=== PATIENT | female | born 1945 | race Caucasian/White ===

== ENCOUNTER 2019-06-23 09:09 | Emergency (ER) | payer MEDICARE, OTHER ==
[~2019-06-23] VITALS: Ht 152.4 cm; Wt 49.4 kg
--- NOTE | 2019-06-23 09:26 | NUR ---
Patient came to [facility] 195 c/c s/p fall lac to forehead nonm active bleeding patient is non verbal when recieved
[2019-06-23] MEDS ORDERED: AMIN30LI2 PO (09:31)
[2019-06-23] MEDS ORDERED: ACET-868 GT (09:31)
[2019-06-23] MEDS ORDERED: BENZ1TAB7 PO (09:31)
[2019-06-23] MEDS ORDERED: POLY17PO4 GT (09:31)
[2019-06-23] MEDS ORDERED: MAGN400O6 GT (09:31)
[2019-06-23] MEDS ORDERED: CLON0.5T PO (09:31)
[2019-06-23] MEDS ORDERED: NUT.237L30 PO (09:31)
[2019-06-23] MEDS ORDERED: LIDOCAINE 1%-EPI 1:100,000 50 ML VIAL IJ ONE (10:00)
[2019-06-23] MEDS ORDERED: LIDOCAINE 1%-EPI 1:100,000 20 ML VIAL ONE (10:04)
--- NOTE | 2019-06-23 10:39 | NUR ---
EMT @ bedside for wound irrigation
--- NOTE | 2019-06-23 11:32 | NUR ---
Patient non verbal eyes open follow tract sutured done forehead cleanse and place dressing
--- NOTE | 2019-06-23 11:48 | NUR ---
Called report to [facility] facility spoke to Ximena made aware patient needs to follow up PMD for wound check in 2 days and and removal of sutures in 5-7 days ,advice also room should be closer to nurses station
[2019-06-23 11:51] VITALS: BP 111/78
--- NOTE | 2019-06-23 11:51 | NUR ---
DC home intruction given to Ximena BERG from [facility]
--- NOTE | 2019-06-23 11:54 | NUR ---
JENNY WOLFE 1530 TRIP #[id number] Addendum: 06/23/19 at 1206 by ALESHIA *SILVIA ALVARADO
--- NOTE | 2019-06-23 11:58 | NUR ---
[facility] ETA 1500
--- NOTE | 2019-06-23 14:54 | NUR ---
[facility] UPDATED ETA [id number]
--- NOTE | 2019-06-23 15:29 | NUR ---
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
--- NOTE | 2019-06-23 16:21 | NUR ---
[facility] here to transfer patient to [facility]
--- NOTE | 2019-06-23 16:36 | NUR ---
Patient going back to [facility] report given to Ximena ,
== END 2019-06-23 16:34 ==
LOC: ER 09:11
DX: S01.81XA Laceration without foreign body of other part of head, initial encounter (principal); J44.9 Chronic obstructive pulmonary disease, unspecified; E11.9 Type 2 diabetes mellitus without complications; Z98.890 Other specified postprocedural states; Z86.73 Personal history of transient ischemic attack (TIA), and cerebral infarction without residual deficits; Z79.899 Other long term (current) drug therapy; W18.39XA Other fall on same level, initial encounter; Y93.89 Activity, other specified; Y92.89 Other specified places as the place of occurrence of the external cause; Y99.8 Other external cause status
CPT/HCPCS: 12013; 70450; 99285; A6403; J3490 ×2

== ENCOUNTER 2020-02-25 13:34 | Inpatient (IN) | payer MEDICARE, OTHER ==
[~2020-02-25] VITALS: Ht 165.1 cm; Wt 52.6 kg
[~2020-02-25 13:34] MED LIST: ACET-868 GT; AMIN30LI2 GT; BENZ1TAB7 PO; CLON0.5T PO; MAGN400O6 GT; NUT.237L30 PO; POLY17PO4 GT
[2020-02-25 14:16] LABS: BASOPHILS % (AUTO) 0.3 % (0.0-2.0); HEMATOCRIT 38 % (33-45); HEMOGLOBIN 12.6 g/dL (11.5-14.8); LYMPHOCYTES # (AUTO) 1.3 /CMM (0.8-4.8); LYMPHOCYTES % (AUTO) 12.3 % (20.0-44.0); MEAN CORPUSCULAR HGB CONC 33 g/dl (31.0-36.0); MEAN CORPUSCULAR VOLUME 94 fL (82-100); MONOCYTES # (AUTO) 0.5 /CMM (0.1-1.30); NEUTROPHILS # (AUTO) 8.8 /CMM (1.8-8.9); NEUTROPHILS % (AUTO) 82.4 % (43.0-81.0); PLATELET COUNT (AUTO) 273 /CMM (150-450); RED BLOOD CELL COUNT(AUTO) 4.09 MIL/uL (4.0-5.2); WHITE BLOOD COUNT (AUTO) 10.7 K/uL (4.3-11.0)
[2020-02-25 14:23] LABS: CALCIUM, SERUM 9.7 mg/dL (8.5-10.1); CARBON DIOXIDE 29 mmol/L (21-32); CHLORIDE 102 mmol/L (98-107); CREATININE 0.7 mg/dL (0.6-1.3); GLUCOSE 249 mg/dL (74-106); POTASSIUM 4.9 mmol/L (3.5-5.1); SODIUM SERUM 138 mmol/L (136-145); UREA NITROGEN, BLOOD 24 mg/dL (7-18)
--- NOTE | 2020-02-25 14:24 | NUR ---
STEPHANIE FROM [facility] TO ER BED 7. ALERT, AWAKE BUT CONFUSED. PT IS NOTED NON VERBAL. BROUGHT ON FOR A HIP XRAY CONFIRMED BY XRAY AT THE FACILITY. PER REPORT, PT WAS FOUND ON THE FLOOR AND UNABLE TO GET UP. UPON ASSESSMENT, PT IS NOTED WITH RIGHT LEG EXTERNAL ROTATION W/ POSITIVE SHORTENING. PEDAL PULSES ARE APPRECIATED AND BOTH EQUAL IN STRENGTH. PT APPEARS COMFORTABLE W/O NOTING ANY S/S OF PAIN. MD WAS AT THE BEDSIDE FOR EVAL. ORDERS RECEIVED, NOTED AND CARRIED OUT. IV LINE ESTABLISHED ON THE R HAND 20G. BLOOD DRAWN AND GIVEN TO DISPUTE COORDINATOR. COVID SWAB DONE AND SENT TO LAB. EMT WAS AT BEDSIDE WELL FOR EKG
--- NOTE | 2020-02-25 14:34 | NUR ---
AT BEDSIDE FOR EVAL.
--- NOTE | 2020-02-25 14:54 | NUR ---
BED 105
[2020-02-25] MEDS ORDERED: ATOR40TA GT (15:03)
[2020-02-25] MEDS ORDERED: CRAN3875 GT (15:03)
[2020-02-25] MEDS ORDERED: OMEG1CAP GT (15:03)
[2020-02-25] MEDS ORDERED: MULT-439 GT (15:03)
[2020-02-25] MEDS ORDERED: QUERCETIN GT (15:03)
[2020-02-25] MEDS ORDERED: ASCO500C16 GT (15:03)
[2020-02-25] MEDS ORDERED: ASPI-1169 GT (15:03)
[2020-02-25] MEDS ORDERED: BISA10SU11 RC (15:03)
[2020-02-25] MEDS ORDERED: POLY17PO4 PO (15:03)
[2020-02-25] MEDS ORDERED: CHOL100045 GT (15:03)
--- NOTE | 2020-02-25 15:08 | NUR ---
AYALA CATH INSERTED PER MD ORDERED. STRICT STERILE TECHNOQUE OBSERVED DURING PROCEDURE
--- NOTE | 2020-02-25 15:10 | NUR ---
CALLED YOLANDE JIMENEZ PAGED FOURDRINIER MACHINE TENDER DONG FOR CONSULT
--- NOTE | 2020-02-25 15:11 | NUR ---
Michael manning in [facility] - 02/25/20 at 1512 by PEDRITO GUS ONEILL LICENSED NUCLEAR OPERATOR DONG BARNHART
--- NOTE | 2020-02-25 15:13 | NUR ---
CALLED [facility], PAGED CANDICE COLEMAN FOR ADMISSION
--- NOTE | 2020-02-25 15:15 | NUR ---
REPORT GIVEN TO OTIS DUMONT FOR SEUN
[2020-02-25 16:16] LABS: BILIRUBIN,URINE Negative (NEGATIVE); BLOOD, URINE Trace-intact Ery/uL (NEGATIVE); COLOR,URINE Yellow (YELLOW); KETONES,URINE 15 (NEGATIVE); LEUKOCYTE ESTERASE ,URINE Trace (NEGATIVE); NITRITE, URINE Negative (NEGATIVE); PH,URINE 6.5 (5.0-8.0); PROTEIN,URINE Negative (NEGATIVE); UGLUCOSE 100 MG/DL mg/dL (NEGATIVE); UROBILINOGEN,URINE 0.2 EU/dL (0.2)
[2020-02-25] MEDS ORDERED: BISACODYL SUPP (10 MG) 10 MG/SUPP.RECT SUPP.RECT RC PRN (17:30)
--- NOTE | 2020-02-25 17:35 | NUR ---
CALLED [facility] AND FOLLOWED UP CERVICAL SPINE CT RESULT. SPOKE ELVA FORD
[2020-02-25] MEDS ORDERED: Z GUARD REMEDY 2 OZ OINT TP PRN (18:00)
[2020-02-25] MEDS ORDERED: MORPHINE SULFATE INJ 2 MG/ML DISP.SYRIN IV PRN (18:00)
[2020-02-25] MEDS ORDERED: ONDANSETRON HCL/PF 4 MG/2 ML VIAL IVP PRN (18:00)
[2020-02-25] MEDS ORDERED: ACETAMINOPHEN 650 MG/SUPP.RECT RC PRN (18:00)
--- NOTE | 2020-02-25 18:00 | NUR ---
PT TRANSPORTED TO UNIT ON GURNEY WITH 2 EMT AT BEDSIDE. NAD NOTED DURING TRANSPORT.
[2020-02-25 18:27] VITALS: BP 139/43
--- NOTE | 2020-02-25 18:30 | NUR ---
PATIENT SITUATED IN ROOM 105 NO SIGNS OF DISTRESS. AOX1 CONFUSED NON VERBAL. VITAL SIGNS FOLLOW BP 139/45 TEMP 97.4 PULSE 90 RR 18 O2 SAT 100 ON ROOM AIR. HAS R HAND #20. SAFETY MEASURES IMPLEMENTED. CALL LIGHT WITHIN REACH WILL ENDORSE TO STERILE PROCESSING TECH NURSE FOR SEUN.
--- NOTE | 2020-02-25 18:41 | NUR ---
spoke with brother eugenie would like to talk to surgeon prior to consenting,flower and radha ly made aware.
--- NOTE | 2020-02-25 19:32 | NUR ---
PATIENT IN BED NO SIGNS OF DISTRESS. ENDORSED TO HEAD INSPECTOR NURSE.
--- NOTE | 2020-02-25 19:50 | NUR ---
1950 RECEIVED PATIENT IN BED AWAKE BUT NONVERBAL. NO SIGNS OF DISTRESS NOTED. ON R/A WITH O2 SATURATION 98%. PATIENT RESISTING CARE TRYING TO PULL OUT HER IV ACCESS AND IV LINE. EXPLAINED THE NEED FOR IVF WITH NO HELP. PATIENT CONT TO TRY TO PULL IV LINE AND TRIED TO BITE STAFF. IV ACCESS ON RIGHT HAND INTACT AND PATENT. ISOLATION MASK APPLIED. PT ON DROPLET ISOLATION WITH ALL PRECAUTIONS STRICTLY FOLLOWED. CALL LIGHT PLACED WITHIN REACH.
[2020-02-25] MEDS: IV NS 0.9% 1,000 ML IV PRN (20:06)
[2020-02-25 20:12] LABS: APPEARANCE,URINE HAZY (CLEAR)
[2020-02-25 20:19] LABS: BACTERIA,URINE Rare /HPF (None Seen); SQUAMOUS EPITHELIAL CELL,UR Few /HPF (None Seen)
--- NOTE | 2020-02-25 21:15 | NUR ---
2114 PATIENT STILL TRYING TO REACH FOR IV LINE TO PULL IT OUT DESPITE REDIRECTION AND ATTENDING TO NEEDS. NOTIFIED DR TAYLOR WITH ORDER FOR BILATERAL RESTRAINTS. ORDER NOTED AND CARRIED OUT. EXPLAINED TO PATIENT THE NEED FOR RESTRAINTS FOR HER SAFETY AND PREVENTION OF PULLING OUT LIFE SUSTAINING LINES. WILL CONT. TO MONITOR.
--- NOTE | 2020-02-25 23:00 | NUR ---
2300 BEDBATH PROVIDED. PATIENT AWAKE AND VERBALLY RESPONSIVE. ANSWERED TO QUESTIONS APPROPRIATELY. ABLE TO ASSIST WITH TURNING. BILATERAL WRIST RESTRAINTS RELEASED PATIENT ABLE TO FOLLOW COMMANDS NOW AND NOT TRYING TO PULL IV LINES ANY LONGER. WITH C/O MILD PAIN ON RIGHT LEG WHEN ASKED. OFFERED PAIN MEDICATION BUT REFUSED STATING " I CANT HAVE ANYTHING IN MY STOMACH RIGHT NOW." OFFERED IV PAIN MEDICATION BUT CONT TO REFUSE. BILATERAL LOWER EXTREMITIES ELEVATED ON PILLOWS. ALL NEEDS ATTENDED. CALL LIGHT PLACED WITHIN REACH AND INSTRUCTED TO USE FOR ASSISTANCE.
[2020-02-25 23:30] VITALS: BP 141/58
[2020-02-26] VITALS (8 sets, daily range): BP systolic 109–140; BP diastolic 56–84
--- NOTE | 2020-02-26 01:30 | NUR ---
0130 AWAKE AND VERBALLY RESPONSIVE. O2 SATURATION MAINTAINED AT HIGH 90S ON R/A. CONT. TO DENY DIFFICULTY BREATHING. C/O MILD PAIN ON RIGHT HIP BUT REFUSED PAIN MEDICATION WHEN OFFERED. ABLE TO ASSIST WITH TURNING AND REPOSITIONING. KEPT CLEAN AND DRY AT ALL TIMES. CALL LIGHT PLACED WITHIN REACH.
--- NOTE | 2020-02-26 04:00 | NUR ---
0400 PATIENT SLEEPING WHEN CHECKED. NO SIGNS OF DISTRESS NOTED. REPOSITIONED FOR SKIN MANAGEMENT AND COMFORT. KEPT ON DROPLET ISOLATION FOR SUSPECTED COVID, ALL NECESSARY PRECAUTIONS STRICTLY OBSERVED. NEED ANTICIPATED.
--- NOTE | 2020-02-26 05:30 | NUR ---
0530 PATIENT RESISTING CARE AGAIN WHEN ATTEMPTED TO GIVE BED BATH. NOT TALKING AGAIN AND HITTING STAFF DURING CARE. REDIRECTED WITH NO HELP. NO EPISODE OF PULLING LINES. BED BATH PROVIDED. LINENS CHANGED. STRONGLY REFUSING VITAL SIGNS TO BE CHECKED. NO SIGNS OF DISTRESS. CONT TO TOLERATE R/A. DROPLET ISOLATION PENDING COVID RESULT WITH ALL PRECAUTIONS FOLLOWED.
[2020-02-26 06:21] LABS: BASOPHILS % (AUTO) 0.1 % (0.0-2.0); HEMATOCRIT 39 % (33-45); HEMOGLOBIN 12.6 g/dL (11.5-14.8); LYMPHOCYTES # (AUTO) 1.3 /CMM (0.8-4.8); MEAN CORPUSCULAR HGB CONC 32 g/dl (31.0-36.0); MEAN CORPUSCULAR VOLUME 93 fL (82-100); MONOCYTES # (AUTO) 0.6 /CMM (0.1-1.30); MONOCYTES % (AUTO) 5.4 % (2.0-12.0); NEUTROPHILS # (AUTO) 9.9 /CMM (1.8-8.9); NEUTROPHILS % (AUTO) 83.5 % (43.0-81.0); PLATELET COUNT (AUTO) 285 /CMM (150-450); RED BLOOD CELL COUNT(AUTO) 4.18 MIL/uL (4.0-5.2); WHITE BLOOD COUNT (AUTO) 11.8 K/uL (4.3-11.0)
[2020-02-26 06:37] LABS: CALCIUM, SERUM 9.3 mg/dL (8.5-10.1); CREATININE 0.7 mg/dL (0.6-1.3); MAGNESIUM 2.2 mg/dL (1.8-2.4); PHOSPHORUS 2.8 mg/dL (2.5-4.9); POTASSIUM 4.9 mmol/L (3.5-5.1)
[2020-02-26 06:42] LABS: THYROID STIMULATING HORMONE 2.177 uIU/mL (0.358-3.74)
--- NOTE | 2020-02-26 07:15 | NUR ---
RN OPENING NOTE Received patient asleep in bed appears calm and relaxed HOB elevated on room air tolerating well no signs of distress. AO x1 aphasic refused to be touched and checked. Pt has GT clamped. R Hand #20 running NS @ 75ml/hr tolerating well. Safety measures reinforced. Call light within reach. Siderails up x2. Will cont to monitor
--- NOTE | 2020-02-26 08:00 | NUR ---
NON-ADMIN: ASPIRIN. DUE TO SURGERY LATER.
[2020-02-26] MEDS: POLYETHYLENE GLYCOL 3350 17 GM POWD.PACK GT SCH ×2 (08:13→09:00)
[2020-02-26] MEDS: clonazePAM 0.5 MG TABLET GT SCH ×4 (08:13→17:04)
[2020-02-26] MEDS: ATORVASTATIN 40 MG TABLET GT SCH ×2 (08:13→09:00)
[2020-02-26] MEDS: PROSOURCE / PROSTAT (PYXIS) 30 ML UDC GT SCH ×3 (08:14→17:00)
[2020-02-26] MEDS: ASPIRIN 81 MG TAB.CHEW GT SCH (08:14)
[2020-02-26] MEDS: IV NS 0.9% 1,000 ML IV PRN ×2 (09:26→22:57)
--- NOTE | 2020-02-26 10:00 | NUR ---
PATIENT REFUSED MEDICATION OFFERED 3X. EXPLAINED RISK AND BENEFITS. MD AWARE WITH NNO.
[2020-02-26] MEDS ORDERED: DEXTROSE 50%-WATER 50 ML DISP.SYRIN IV PRN (15:30)
[2020-02-26] MEDS: BLOOD SUGAR DIAGNOSTIC 1 EACH STRIP IN SCH ×3 (15:30→22:33)
[2020-02-26] MEDS: SOD FERRIC GLUC 125 MG in IV NS 0.9% 100 ML IV SCH (16:07)
[2020-02-26] MEDS: INSULIN REGULAR, HUMAN 100 UNIT/ML 3 ML VIAL SQ PRN ×2 (17:35→22:33)
[2020-02-26] MEDS ORDERED: BUPIVACAINE 0.5 % PF 150 MG/30 ML VIAL ONE (17:51)
[2020-02-26] MEDS ORDERED: MIDAZOLAM HCL 2 MG/2ML VIAL ONE (18:03)
[2020-02-26] MEDS ORDERED: FENTANYL PF 250MCG/5ML AMPUL ONE (18:03)
[2020-02-26] MEDS ORDERED: ROCURONIUM BROMIDE 50 MG/5 ML ONE (18:04)
[2020-02-26] MEDS ORDERED: FAMOTIDINE/PF INJ 20 MG/2 ML VIAL IV ONE (18:04)
[2020-02-26] MEDS ORDERED: HYDROCODONE/APAP 5/325MG TABLET PO PRN (20:30)
--- NOTE | 2020-02-26 21:20 | NUR ---
MS/RN OPENING NOTES: RECEIVED THE PATIENT A/OX4. ABLE TO STATE NEEDS AND VERBALLY RESPONSIVE. S/P RIGHT HIP HEMIARTHROPLASTY. SURGICAL SITE DRESSING IS C.D.I. NO SOB NOTED. ON 2L OXYGEN VIA NC SATURATING AT 99-100%. NO S/S OF DISTRESS NOTED. NO COMPLAINS OF PAIN. PER PATIENT "I FEEL GOOD." POST OP ORDERS PLACED. ON REGULAR DIET TOLERATED, CHECKED FOR GAG REFLEX. NO S/S OF ASPIRATION WHEN GIVEN APPLE SAUCE. FC NOTED DRAINING CLEAR YELLOW URINE OUTPUT. IV SITE ON THE RIGHT HAND #20G, INTACT AND PATENT. WILL MONITOR VS Q15MIN. X4 AND Q30MIN. X2, AND Q1HOUR PER PROTOCOL. PT IS ORIENTED TO UNIT AND STAFF. SAFETY MEASURES INITIATED. BED , IN LOW, LOCKED POSITION WITH SR UP X2. CALL LIGHT WITHIN REACH. WILL CONTINUE TO MONITOR ACCORDINGLY.
--- NOTE | 2020-02-26 22:00 | NUR ---
TELE/RN NOTES: ACCUCHECK FOR HS 2200 IS 80. NO COVERAGE GIVEN PER SLIDING SCALE. NO S/S OF HYPOGLYCEMIA/ HYPERGLYCEMIA. PATIENT GIVEN APPLE SAUCE. ABLE TO TOLERATE WITH NO SIGNS OF ASPIRATION. Addendum: 02/27/20 at 0600 by EVAN BERUMEN RN MS/RN NOTES:
[2020-02-27] VITALS (8 sets, daily range): BP systolic 110–126; BP diastolic 57–76
--- NOTE | 2020-02-27 | NUR ---
MS/RN NOTES: PT VS WNL AND STABLE. PT DENIES PAIN AT THIS TIME. WILL MONITOR CONTINUOUSLY.
[2020-02-27] MEDS ORDERED: CEFAZOLIN IV SCH (04:00)
[2020-02-27] MEDS ORDERED: D5W IV SCH (04:00)
--- NOTE | 2020-02-27 05:11 | NUR ---
MS/RN NOTES: NO STOCKED ANCEF 2GM ON THE FLOOR. NO STOCK IN [place], MS 2. CHECKING WITH ICU.
--- NOTE | 2020-02-27 05:27 | NUR ---
MS/RN NOTES: NO ANCEF 2GM AVAILABLE ALL UNITS. CHECKING WITH LEAD NITRATE PROCESSOR BRO RIGHT NOW. AWAITING FOR RESPONSE.
--- NOTE | 2020-02-27 05:28 | NUR ---
MS/RN NOTES: NEUROSURGERY RESEARCH DIRECTOR CALLED AND THERE IS NO AVAILABLE
--- NOTE | 2020-02-27 05:43 | NUR ---
MS/RN NOTES: FOUND AN UNUSED ANCEF 2GM. CHARGE NURSE AWARE. COLOR BUFFER AWARE. WILL INFUSE NOW.
--- NOTE | 2020-02-27 05:50 | NUR ---
MS/RN NOTES: ANCEF 2GMS INFUSING AT 50ML/SHR ORDERED FOR POST OP.
--- NOTE | 2020-02-27 06:00 | NUR ---
MS/RN NOTES: ACCUCHECK FOR HS 2200 IS 80. NO COVERAGE GIVEN PER SLIDING SCALE. NO S/S OF HYPOGLYCEMIA/ HYPERGLYCEMIA. PATIENT GIVEN APPLE SAUCE. ABLE TO TOLERATE WITH NO SIGNS OF ASPIRATION. Addendum: 02/27/20 at 0601 by EVAN BERUMEN RN INCORRECT TIME DOCUMENTATION. PLEASE DISREGARD.
[2020-02-27] MEDS: BLOOD SUGAR DIAGNOSTIC 1 EACH STRIP IN SCH ×4 (06:52→22:34)
[2020-02-27] MEDS: INSULIN REGULAR, HUMAN 100 UNIT/ML 3 ML VIAL SQ PRN ×3 (06:56→18:00)
--- NOTE | 2020-02-27 06:57 | NUR ---
TELE/RN NOTES: ACCUCHECK FOR AC 0730 IS 146. REFUSED REG INSULIN COVERAGE. NO S/S OF HYPOGLYCEMIA/ HYPERGLYCEMIA.
--- NOTE | 2020-02-27 06:58 | NUR ---
MS/RN NOTES: ACCUCHECK FOR AC 0730 IS 146. REFUSED REG INSULIN COVERAGE. NO S/S OF HYPOGLYCEMIA/ HYPERGLYCEMIA.
--- NOTE | 2020-02-27 06:58 | NUR ---
MS/RN CLOSING NOTES: PATIENT REMAINS A/OX4. ABLE TO STATE NEEDS AND VERBALLY RESPONSIVE. S/P RIGHT HIP HEMIARTHROPLASTY. SURGICAL SITE DRESSING STILL C.D.I. NO SOB NOTED. ON 2L OXYGEN VIA NC SATURATING AT 99-100%. NO S/S OF DISTRESS NOTED. NO COMPLAINS OF PAIN. VS STABLE ALL NIGHT. FC NOTED DRAINING CLEAR YELLOW URINE OUTPUT. IV SITE ON THE RIGHT HAND #20G, INTACT AND PATENT WITH NS RUNNING AT 75MLS/HR. SAFETY MEASURES IN PLACE. BED , IN LOW, LOCKED POSITION WITH SR UP X2. CALL LIGHT WITHIN REACH. WILL ENDORSE TO DAY SHIFT FOR SEUN.
[2020-02-27] MEDS: ATORVASTATIN 40 MG TABLET GT SCH (08:03)
[2020-02-27] MEDS: PROSOURCE / PROSTAT (PYXIS) 30 ML UDC GT SCH ×2 (08:03→16:36)
[2020-02-27] MEDS: POLYETHYLENE GLYCOL 3350 17 GM POWD.PACK GT SCH (08:03)
[2020-02-27] MEDS: clonazePAM 0.5 MG TABLET GT SCH ×2 (08:03→16:36)
[2020-02-27] MEDS: ASPIRIN 81 MG TAB.CHEW GT SCH (08:04)
--- NOTE | 2020-02-27 09:13 | NUR ---
MS RN OPENING NOTES RECEIVED PATIENT A/OX4. POD# 1 RIGHT HIP HEMIARTHROPLASTY. SURGICAL SITE DRESSING IS CLEAN, DRY AND INTACT. ICE PACK IN PLACE. ON 2L O2 VIA NC SATURATING AT 94%. NO SOB, NO RESPIRATORY DISTRESS NOTED. NO COMPLAINS OF PAIN. ON REGULAR DIET TOLERATED. FC DRAINING CLEAR YELLOW URINE. IV SITE ON RIGHT HAND #20G, INTACT AND PATENT. SAFETY MEASURES OBSERVED. CALL LIGHT WITHIN REACH. BED LOCKED AND AT LOWEST POSITION WITH SIDE RAILS UP X2. PATIENT IS COMFORTABLE. WILL CONTINUE TO MONITOR.
[2020-02-27 10:45] LABS: BASOPHILS % (AUTO) 0.3 % (0.0-2.0); HEMATOCRIT 31 % (33-45); HEMOGLOBIN 10.1 g/dL (11.5-14.8); LYMPHOCYTES # (AUTO) 0.8 /CMM (0.8-4.8); LYMPHOCYTES % (AUTO) 11.1 % (20.0-44.0); MEAN CORPUSCULAR HGB CONC 33 g/dl (31.0-36.0); MEAN CORPUSCULAR VOLUME 93 fL (82-100); MONOCYTES # (AUTO) 0.6 /CMM (0.1-1.30); MONOCYTES % (AUTO) 8.5 % (2.0-12.0); NEUTROPHILS # (AUTO) 5.5 /CMM (1.8-8.9); NEUTROPHILS % (AUTO) 80.1 % (43.0-81.0); PLATELET COUNT (AUTO) 241 /CMM (150-450); RED BLOOD CELL COUNT(AUTO) 3.29 MIL/uL (4.0-5.2); WHITE BLOOD COUNT (AUTO) 6.8 K/uL (4.3-11.0)
[2020-02-27 10:54] LABS: ALBUMIN 2.3 g/dL (3.4-5.0); BILIRUBIN,TOTAL 0.4 mg/dL (0.2-1.0); CALCIUM, SERUM 7.9 mg/dL (8.5-10.1); CREATININE 0.8 mg/dL (0.6-1.3); MAGNESIUM 1.8 mg/dL (1.8-2.4); PHOSPHORUS 2.2 mg/dL (2.5-4.9); TOTAL PROTEIN, SERUM 5.8 g/dL (6.4-8.2)
[2020-02-27] MEDS: IV NS 0.9% 1,000 ML IV PRN (11:41)
[2020-02-27] MEDS ORDERED: CEFAZOLIN 2 GM in IV D5W 100 ML IV ONE (12:00)
[2020-02-27] MEDS: SOD FERRIC GLUC 125 MG in IV NS 0.9% 100 ML IV SCH (13:56)
[2020-02-27] MEDS ORDERED: NEUTRA PHOS 1 POWD.PACKET NG ONE (16:30)
--- NOTE | 2020-02-27 18:59 | NUR ---
MS RN CLOSING NOTES PATIENT REMAINS IN BED. A/OX2. CHANGE OF DRESSING TOMORROW. SURGICAL SITE DRESSING CLEAN, DRY AND INTACT. NO SOB NOTED, NOT IN RESPIRATORY DISTRESS. ON ROOM AIR SATURATING AT 96%. NO COMPLAINS OF PAIN. FC REMOVED. IV SITE ON THE LEFT FOREARM #20G, INTACT AND PATENT WITH NS RUNNING AT 75MLS/HR. VS STABLE. SAFETY MEASURES IN PLACE. CALL LIGHT WITHIN REACH. BED LOCKED AND AT LOWEST POSITION. WILL ENDORSE TO ONCOMING SHIFT FOR SEUN.
--- NOTE | 2020-02-27 19:45 | NUR ---
MSRN AWAKE, LIMITED VERBAL. ABDUCTION PILLOW IN PLACE. PRESENT IVF INFUSING WELL. RESISTIVE TO CARE AT THIS TIME. TO CONTNUE
[2020-02-27] MEDS ORDERED: ENOXAPARIN SODIUM 40 MG/0.4 ML DISP.SYRIN SQ SCH (21:00)
--- NOTE | 2020-02-27 22:44 | NUR ---
MSRN BS 154, NO COVERAGE FOR NOW, SKIPPED MEALS TODAY. OFFERED LATE DINNER DECLINED.
[2020-02-28] MEDS: IV NS 0.9% 1,000 ML IV PRN (01:56)
--- NOTE | 2020-02-28 02:55 | NUR ---
MSRN CHECKED FOR URINE OUTPUT,FINALLY VOIDED LARGE AMOUNT. PARTIALLY BATHED, RESISTIVE TO CARE. REPOSITIONED, KEPT DRY CLEAN AND COMFORTABLE. OFFERED PAIN MED, REFUSED
--- NOTE | 2020-02-28 06:59 | NUR ---
MSRN BS 126. ALL NEEDS MADE.
[2020-02-28] MEDS: BLOOD SUGAR DIAGNOSTIC 1 EACH STRIP IN SCH ×3 (07:30→17:42)
[2020-02-28 07:37] LABS: BASOPHILS % (AUTO) 0.2 % (0.0-2.0); HEMATOCRIT 28 % (33-45); HEMOGLOBIN 9.1 g/dL (11.5-14.8); LYMPHOCYTES # (AUTO) 1.5 /CMM (0.8-4.8); MEAN CORPUSCULAR HGB CONC 33 g/dl (31.0-36.0); MEAN CORPUSCULAR VOLUME 93 fL (82-100); MONOCYTES # (AUTO) 0.9 /CMM (0.1-1.30); MONOCYTES % (AUTO) 12.6 % (2.0-12.0); NEUTROPHILS # (AUTO) 5.1 /CMM (1.8-8.9); NEUTROPHILS % (AUTO) 67.2 % (43.0-81.0); PLATELET COUNT (AUTO) 241 /CMM (150-450); RED BLOOD CELL COUNT(AUTO) 2.98 MIL/uL (4.0-5.2); WHITE BLOOD COUNT (AUTO) 7.5 K/uL (4.3-11.0)
[2020-02-28 07:50] LABS: ALBUMIN 2.1 g/dL (3.4-5.0); BILIRUBIN,TOTAL 0.5 mg/dL (0.2-1.0); CREATININE 0.6 mg/dL (0.6-1.3); MAGNESIUM 1.9 mg/dL (1.8-2.4); PHOSPHORUS 2.4 mg/dL (2.5-4.9); POTASSIUM 3.9 mmol/L (3.5-5.1); TOTAL PROTEIN, SERUM 5.8 g/dL (6.4-8.2)
--- NOTE | 2020-02-28 07:50 | NUR ---
MS RN NOTES PATIENT IN BED RESTING. AWAKE, NONE VERBAL. SAFETY MEASURES IN PLACE WILL CONTINUE TO MONITOR.
[2020-02-28] MEDS: ATORVASTATIN 40 MG TABLET GT SCH ×2 (08:18→08:25)
[2020-02-28] MEDS: ASPIRIN 81 MG TAB.CHEW GT SCH ×2 (08:18→08:25)
[2020-02-28] MEDS: clonazePAM 0.5 MG TABLET GT SCH ×3 (08:18→16:16)
[2020-02-28] MEDS: POLYETHYLENE GLYCOL 3350 17 GM POWD.PACK GT SCH ×2 (08:18→08:26)
[2020-02-28] MEDS: PROSOURCE / PROSTAT (PYXIS) 30 ML UDC GT SCH ×2 (08:26→16:16)
[2020-02-28 09:34] VITALS: BP 144/80
[2020-02-28] MEDS ORDERED: HYDROCODONE/APAP 5/325MG TABLET GT PRN (11:28)
[2020-02-28] MEDS ORDERED: NEUTRA PHOS 1 POWD.PACKET GT SCH (11:30)
[2020-02-28] MEDS: INSULIN REGULAR, HUMAN 100 UNIT/ML 3 ML VIAL SQ PRN ×2 (11:34→17:42)
--- NOTE | 2020-02-28 11:48 | NUR ---
MS RN NOTES PATIENT REFUSING ALL PO MEDICATIONS. REFUSING FOR MEDICATIONS TO BE GIVEN THREW G-TUBE ALS. DESPITE EXPLANATION OF BENEFITS. STATES SHE DOES NOT FEEL WELL WHEN TAKING MEDICATION.
[2020-02-28] MEDS ORDERED: Sodium Phosphate 15 MMOL in IV NS 0.9% 245 ML IV SCH (12:00)
[2020-02-28] MEDS ORDERED: PANT40TA2 PO (14:03)
[2020-02-28] MEDS ORDERED: ENOX40DI SQ (14:03)
[2020-02-28] MEDS: SOD FERRIC GLUC 125 MG in IV NS 0.9% 100 ML IV SCH (15:23)
--- NOTE | 2020-02-28 15:24 | NUR ---
MS RN NOTES SODIUM PHOS HELD TO RUN FERRLICIT. IV WILL CONTINUE SODIUM PHOS AFTER FERLICIT FINISHES.
[2020-02-28 16:11] VITALS: BP 169/72
--- NOTE | 2020-02-28 18:40 | NUR ---
MS RN NOTES PATIENT REFUSED DISCHARGE PICTURES.
--- NOTE | 2020-02-28 18:40 | NUR ---
MS RN NOTES DISCHARGE REPORT GIVEN TO ELVER BERG AT [facility]. DISCHARGE INSTRUCTIONS PROVIDED TO PATIENT AND RN AT SNF. PATIENT NONE COMPLIANT WITH MEDICATIONS. SHE REFUSES MEDICATION. MD AWARE OF ALL ABNORMAL LABS AND TESTS. PATIENT COMPLETED SODIUM PHOS IV. PATIENT WITH NO BELONGINGS. PATIENT WAITING FOR TRANSPORTATION. WILL CONTINUE TO MONITOR.
--- NOTE | 2020-02-28 19:10 | NUR ---
MS RN OPENING NOTES: RECEIVED PATIENT IN BED, AWAKE, A/O X2-3. NO S/S DISTRESS NOTED. CALL LIGHT WITHIN REACH. BED ALARM ON. BED IN LOWEST AND LOCKED POSITION. HOB ELEVATED AT 30 DEGREES. WITH RIGHT HIP DRESSIN CLEAN DRY AND INTACT. WITH ABDUCTION PILLOW BETWEEN THE THIGHS. PER REPORTS FROM THE DAYSHIFT, RN ALREADY MADE A REPORT TO THE FACILITY AND TALKED TO ELVER. AND D/C PACKET ALREADY PREPARED AND PRINTED. WAITING FOR THE AMBULANCE PICK-UP.
--- NOTE | 2020-02-28 19:22 | NUR ---
MS RN NOTES PATIENT IN BED RESTING NO SOB OR ACUTE DISTRESS NOTED. PATIENT WAITING FOR DISCHARGE. PERIPHERAL IV REMOVED. ENDORSED CARE TO PM SHIFT.
--- NOTE | 2020-02-28 21:13 | NUR ---
patient is being picked up by the ambulance at this moment, reports given.IV ALREADY REMOVED BY THE PREVIOUS SHIFT RN, NO BLEEDING NOTED.
== END 2020-02-28 21:15 | DRG 469 ==
LOC: ER 13:42 → MEDSG1 15:18 → MEDSG2 02-26 14:15 → MED 02-26 21:25
PROVIDERS: ADMIT Nurse Practitioner Acute Care; ATTEND Nurse Practitioner Acute Care
PROC: 0SRR0JZ Replacement of Right Hip Joint, Femoral Surface with Synthetic Substitute, Open Approach (ICD-10-PCS; principal; 2020-02-26)
DX: S72.011A Unspecified intracapsular fracture of right femur, initial encounter for closed fracture (principal); R53.2 Functional quadriplegia; G93.40 Encephalopathy, unspecified; N17.9 Acute kidney failure, unspecified; Z86.73 Personal history of transient ischemic attack (TIA), and cerebral infarction without residual deficits; J44.9 Chronic obstructive pulmonary disease, unspecified; E86.0 Dehydration; F20.9 Schizophrenia, unspecified; F03.90 Unspecified dementia, unspecified severity, without behavioral disturbance, psychotic disturbance, mood disturbance, and anxiety; E78.5 Hyperlipidemia, unspecified; E11.65 Type 2 diabetes mellitus with hyperglycemia; D50.9 Iron deficiency anemia, unspecified; F32.9 Major depressive disorder, single episode, unspecified; R47.02 Dysphasia; Z79.82 Long term (current) use of aspirin; Z93.1 Gastrostomy status; F29 Unspecified psychosis not due to a substance or known physiological condition; X58.XXXA Exposure to other specified factors, initial encounter; Y93.9 Activity, unspecified; Y92.89 Other specified places as the place of occurrence of the external cause
CPT/HCPCS: 36415; 70450-TC; 71045-TC; 72125-TC; 72170-TC; 73502; 80048-TC; 80053-TC; 80061-TC; 81000-TC; 82962-TC; 83540-TC; 83735-TC; 84100-TC; 84443-TC; 84484-TC; 85025-TC; 85730-TC; 86850-TC; 87081-TC; 87086-TC; 93307-TC; 94799-TC; 97110-TC; 97530-TC; A4217; A6209; A9563; C1776; G0378; J0690; J1650; J1815; J2250; J2405; J2704; J2765; J2916; J3010; J3490; J7030; J7050; J7060; U0003-CS

== ENCOUNTER 2020-06-03 09:13 | Inpatient (IN) | payer MEDICARE, OTHER ==
[~2020-06-03] VITALS: Ht 165.1 cm; Wt 52.6 kg
[2020-06-03] VITALS (15 sets, daily range): BP systolic 88–137; BP diastolic 28–98
[~2020-06-03 09:13] MED LIST changes: -ACET-868 GT; +ASCO500C17 GT; +ASPI-1169 GT; +ATOR40TA GT; -BENZ1TAB7 PO; +BISA10SU11 RC; +CHOL100045 GT; +CRAN3875 GT; +ENOX40DI SQ; +MULT-439 GT; -NUT.237L30 PO; +OMEG1CAP GT; +PANT40TA2 PO; -POLY17PO4 GT; +POLY17PO4 PO; +QUERCETIN GT
--- NOTE | 2020-06-03 09:47 | NUR ---
KITMAN AT BEDSIDE
[2020-06-03 10:00] LABS: ABG BASE EXCESS -5.4 mmol/L; ABG OXYGEN SATURATION 96.5 % (92.0-98.5); ABG PCO2 35.8 mmHg (35.0-45.0); AaDO2 587.2 mmHg; COHb 0.3 % (0.5-1.5); MetHb 0.5 % (0.0-1.5); O2Hb 95.7 % (94.0-97.0); SITE, ABG Right Radial; VENT MODE, BG 100% NRB
[2020-06-03] MEDS ORDERED: NA P133E RC (10:03)
[2020-06-03] MEDS ORDERED: NUT.237L30 GT (10:03)
[2020-06-03] MEDS ORDERED: NUTR1PAC14 GT (10:03)
[2020-06-03] MEDS ORDERED: INSU100V7 SQ (10:03)
[2020-06-03] MEDS ORDERED: ACET325T53 GT ×2 (10:03)
[2020-06-03] MEDS ORDERED: DOCU-141 GT (10:03)
[2020-06-03] MEDS ORDERED: PANT40TA2 GT (10:03)
[2020-06-03 10:27] LABS: BASOPHILS % (AUTO) 0.2 % (0.0-2.0); EOSINOPHILS % (AUTO) 0.1 % (0.0-6.0); HEMATOCRIT 55 % (33-45); HEMOGLOBIN 16.8 g/dL (11.5-14.8); LYMPHOCYTES # (AUTO) 0.7 /CMM (0.8-4.8); MEAN CORPUSCULAR HGB CONC 30 g/dl (31.0-36.0); MEAN CORPUSCULAR VOLUME 99 fL (82-100); MONOCYTES # (AUTO) 0.6 /CMM (0.1-1.30); MONOCYTES % (AUTO) 4.3 % (2.0-12.0); NEUTROPHILS # (AUTO) 12.3 /CMM (1.8-8.9); NEUTROPHILS % (AUTO) 90.4 % (43.0-81.0); PLATELET COUNT (AUTO) 168 /CMM (150-450); RED BLOOD CELL COUNT(AUTO) 5.62 MIL/uL (4.0-5.2); WHITE BLOOD COUNT (AUTO) 13.6 K/uL (4.3-11.0)
[2020-06-03] MEDS ORDERED: IV NS 0.9% 500 ML BAG IV ONE ×2 (10:30→17:00)
[2020-06-03 10:34] LABS: SERUM AMMONIA 33 umol/L (11-32)
--- NOTE | 2020-06-03 10:42 | NUR ---
URINE SAMPLE COLLECTED VIA STRAIGHT CATHETER, SAMPLE SENT TO LAB.
--- NOTE | 2020-06-03 10:49 | NUR ---
COVID 19 PCR SWAB DONE AND SENT TO LAB.
[2020-06-03 10:53] LABS: ALANINE AMINOTRANSFERASE 535 U/L (12-78); ALBUMIN 2.6 g/dL (3.4-5.0); ALKALINE PHOSPHATASE 995 U/L (46-116); ASPARTATE AMINOTRANSFERASE 240 U/L (15-37); B-TYPE NATRIURETIC PEPTIDE 2874 PG/ML (0-125); BILIRUBIN,TOTAL 0.5 mg/dL (0.2-1.0); CALCIUM, SERUM 9.3 mg/dL (8.5-10.1); CARBON DIOXIDE 23 mmol/L (21-32); CHLORIDE 124 mmol/L (98-107); CREATININE 4.2 mg/dL (0.6-1.3); POTASSIUM 4.6 mmol/L (3.5-5.1); TOTAL PROTEIN, SERUM 6.9 g/dL (6.4-8.2)
[2020-06-03] MEDS ORDERED: ACETAMINOPHEN 650 MG/SUPP.RECT RC ONE ×2 (11:00→11:23)
[2020-06-03 11:01] LABS: GLUCOSE 688 mg/dL (74-106); SODIUM SERUM 165 mmol/L (136-145); UREA NITROGEN, BLOOD 241 mg/dL (7-18)
[2020-06-03] MEDS ORDERED: INSULIN REGULAR, HUMAN 100 UNIT/ML 10 ML VIAL ONE (11:23)
[2020-06-03] MEDS ORDERED: IV NS 0.9% 1,000 ML BAG IV ONE (11:30)
[2020-06-03] MEDS ORDERED: INSULIN REGULAR, HUMAN 100 UNIT/ML 10 ML VIAL IV ONE (11:30)
[2020-06-03] MEDS: NOREPINEPHRINE 8 MG in IV NS 0.9% 242 ML IV PRN (11:32)
[2020-06-03] MEDS ORDERED: IV NS 0.9% 1,000 ML IV ONE (12:00)
[2020-06-03] MEDS ORDERED: MISCELLANEOUS MED 1 EA EA XX ONE (12:30)
[2020-06-03] MEDS ORDERED: INSULIN REGULAR, HUMAN 100 UNIT/ML 3 ML VIAL IV ONE (12:30)
[2020-06-03] MEDS ORDERED: Z GUARD REMEDY 2 OZ OINT TP PRN (12:30)
[2020-06-03] MEDS ORDERED: ONDANSETRON HCL/PF 4 MG/2 ML VIAL IVP PRN (12:30)
[2020-06-03] MEDS ORDERED: HYDROCODONE/APAP 5/325MG TABLET PO PRN (12:30)
[2020-06-03] MEDS ORDERED: ZOLPIDEM TARTRATE 5 MG TABLET PO PRN (12:30)
--- NOTE | 2020-06-03 12:34 | NUR ---
RT AT BEDSIDE. PLACED PATIENT ON HI-FLOW O2.
--- NOTE | 2020-06-03 12:36 | NUR ---
HI-FLOW O2 SETTINGS: 40LPM AT 100% O2
--- NOTE | 2020-06-03 12:51 | NUR ---
PATIENT'S O2 SATURATION AT 75-81% WITH USE OF HI-FLOW OXYGEN. MADE MD AWARE.
[2020-06-03] MEDS ORDERED: PROPOFOL 100 ML ONE (12:52)
[2020-06-03] MEDS ORDERED: PROPOFOL 20 ML IV ONE (12:52)
--- NOTE | 2020-06-03 12:54 | NUR ---
MD, RN AND RT AT BEDSIDE FOR INTUBATION.
--- NOTE | 2020-06-03 13:26 | NUR ---
PATIENT'S O2 SATURATION STILL AT 80'S, AWARE. PAGED DR GRANGER.
[2020-06-03] MEDS ORDERED: IPRATROPIUM BROMIDE 14 GM INHALER (or 12.9 GM) IH PRN (14:00)
[2020-06-03] MEDS ORDERED: ALBUTEROL SULFATE INH 18 GM HFA.AER.AD IH PRN (14:00)
[2020-06-03] MEDS ORDERED: PROPOFOL 200 MG/20 ML VIAL IV ONE (14:30)
[2020-06-03] MEDS ORDERED: PROPOFOL 1,000 MG/100 ML BOTTLE IV ONE (14:30)
--- NOTE | 2020-06-03 14:36 | NUR ---
DR GRANGER AT BEDSIDE
--- NOTE | 2020-06-03 14:59 | NUR ---
RT AT BEDSIDE FOR ABG
[2020-06-03 15:08] LABS: BILIRUBIN,DIRECT 0.2 mg/dL (0.0-0.2)
[2020-06-03 15:09] LABS: ABG BASE EXCESS -10.1 mmol/L; ABG OXYGEN SATURATION 81.2 % (92.0-98.5); ABG PCO2 34.7 mmHg (35.0-45.0); ABG PH 7.272 (7.350-7.450); ABG PO2 47.8 mmHg (75.0-100.0); AaDO2 630.5 mmHg; COHb 0.4 % (0.5-1.5); MetHb 0.3 % (0.0-1.5); O2Hb 80.6 % (94.0-97.0); SITE, ABG Right Radial; VENT MODE, BG AC 18 450 +5 100%
--- NOTE | 2020-06-03 15:15 | NUR ---
RT AT BEDSIDE, PEEP CHANGED TO 8.0. WILL CLOSELY MONITOR PATIENT.
--- NOTE | 2020-06-03 15:32 | NUR ---
RECEIVED VERBAL ORDER FROM DR HUTSON FOR 2L NS IVPB. CARRIED OUT
[2020-06-03 15:33] LABS: BILIRUBIN,URINE NEGATIVE (NEGATIVE); COLOR,URINE YELLOW (YELLOW); LEUKOCYTE ESTERASE ,URINE SMALL (NEGATIVE); NITRITE, URINE NEGATIVE (NEGATIVE); PROTEIN,URINE NEGATIVE (NEGATIVE); UGLUCOSE NEGATIVE (NEGATIVE); UROBILINOGEN,URINE 0.2 EU/dL (0.2)
--- NOTE | 2020-06-03 15:35 | NUR ---
DR HUTSON AT BEDSIDE FOR CENTRAL LINE INSERTION
[2020-06-03 15:36] LABS: D-DIMER 6.99 mg/L(FEU (0.17-0.50)
[2020-06-03] MEDS ORDERED: PIPERACILLIN /TAZOBACTAM 3.375 G in IV D5W 50 ML IV SCH (16:00)
--- NOTE | 2020-06-03 16:04 | NUR ---
STOPPED LEVOPHED DRIP PER MD ORDER.
[2020-06-03 16:06] LABS: RBC,URINE 0-2 /HPF (0-2)
[2020-06-03 16:07] LABS: BACTERIA,URINE 2+ /HPF (None Seen)
--- NOTE | 2020-06-03 16:09 | NUR ---
PER DR GRANGER. POSITION PATIENT RIGHT SIDE DOWN, PEEP OF 0 AND RATE OF 26. CARRIED OUT WITH RT PISANO.
--- NOTE | 2020-06-03 16:46 | NUR ---
RAPID COVID SWAB DONE AND SENT TO LAB.
[2020-06-03] MEDS ORDERED: ZOSYN IVPB 3.375 G in IV D5W 50ml IV ONE (17:00)
[2020-06-03] MEDS ORDERED: VANCOMYCIN 500 MG in IV D5W 100ml IV ONE (17:00)
--- NOTE | 2020-06-03 17:10 | NUR ---
INFORMED ER MD DR HUTSON OF PATIENT'S CURRENT BS 281MG/DL. ORDERED TO CANCEL INSULIN REGULAR 4 UNITS. CARRIED OUT.
--- NOTE | 2020-06-03 18:49 | NUR ---
COVID 19 antigen positive
[2020-06-03] MEDS: HEPARIN SODIUM, PORCINE 5000 UNITS/1 ML VIAL SQ SCH (19:00)
--- NOTE | 2020-06-03 19:41 | NUR ---
REPORT GIVEN TO AMANDA BERG FOR SEUN
--- NOTE | 2020-06-03 19:50 | NUR ---
RT pt received on mechanical vent with current settings. intubated with ett 7.5, 23 @lip. vent plugged in to red outlet. ett secure. alarms on and audible. [facility]. moderate thick yellow secretions suctioned via ett. pt on right side per md order. cpt will be performed per md order. will continue to monitor.
--- NOTE | 2020-06-03 19:58 | NUR ---
REPORT GIVEN TO MAE BERG FOR SEUN.
[2020-06-03] MEDS: PROPOFOL 100 ML IV PRN (20:10)
--- NOTE | 2020-06-03 20:23 | NUR ---
RT pt transferred to floor with no complications. vent plugged in to red outlet. ambu bag at [facility]. alarms on and audible. will continue to monitor
--- NOTE | 2020-06-03 20:23 | NUR ---
PATIENT TAKEN UP TO ASSIGNED ROOM FOR SEUN.
[2020-06-03 21:12] LABS: C-REACTIVE PROTEIN 7.7 mg/dL (0.0-0.9); FERRITIN 845 ng/mL (8-388)
--- NOTE | 2020-06-03 21:15 | NUR ---
2115 INSULIN DRIP ORDER VERIFIED WITH PROSPER MCRAE WITH ORDER TO START PATIENT ON INSULIN DRIP AT 2UNITS/HR TITRATE FOR BG X 1.5 DIVIDED BY 100. ORDER NOTED PHARMACIST MARISA NOTIFIED.
[2020-06-03] MEDS ORDERED: MEROPENEM 500 MG in IV NS 0.9% 50 ML IV SCH (22:00)
[2020-06-03 22:32] LABS: CALCIUM, SERUM 6.8 mg/dL (8.5-10.1); CARBON DIOXIDE 17 mmol/L (21-32); CREATININE 2.9 mg/dL (0.6-1.3); POTASSIUM 3.7 mmol/L (3.5-5.1)
[2020-06-03] MEDS: INS (REG) DRIP 100 U/100 ML NS IV PRN ×2 (22:41)
[2020-06-03 22:45] LABS: CHLORIDE 134 mmol/L (98-107); GLUCOSE 373 mg/dL (74-106)
[2020-06-03 22:46] LABS: SODIUM SERUM 168 mmol/L (136-145); UREA NITROGEN, BLOOD 185 mg/dL (7-18)
[2020-06-03 22:49] LABS: CREATINE KINASE, TOTAL 209 U/L (26-192)
[2020-06-03 22:50] LABS: THYROID STIMULATING HORMONE 1.015 uIU/mL (0.358-3.74)
[2020-06-03] MEDS: IV NS 0.9% 1,000 ML IV PRN ×2 (22:55→23:57)
[2020-06-04] VITALS (46 sets, daily range): BP systolic 55–154; BP diastolic 28–77
[2020-06-04] LABS: CALCIUM, SERUM 7.2 mg/dL (8.5-10.1); CARBON DIOXIDE 16 mmol/L (21-32); CREATININE 2.5 mg/dL (0.6-1.3); POTASSIUM 3.5 mmol/L (3.5-5.1)
[2020-06-04] MEDS ORDERED: ZOSYN IVPB 2.25 G in IV D5W 50ml IV SCH ×2
[2020-06-04 00:03] LABS: CHLORIDE 132 mmol/L (98-107); GLUCOSE 607 mg/dL (74-106); SODIUM SERUM 165 mmol/L (136-145); UREA NITROGEN, BLOOD 153 mg/dL (7-18)
--- NOTE | 2020-06-04 00:10 | NUR ---
VERIFIED TO DR. DALE ABOUT THE NS 150ML/HR ORDER FOR PT BECAUSE CURRENT SODIUM LVL IS 165 CHLORIDE 132 AND BUN OF 185, I LASO ASK HOW OFTEN WE GONNA CHECKED BMP BECAUSE PT IS ON INSULIN DRIP HE ORDER JUST TO CHECKED BMP ON AM, HE SAID TO CONT THE NS ORDER NOTED AND CARRIED OUT
[2020-06-04] MEDS: NOREPINEPHRINE 8 MG in IV NS 0.9% 242 ML IV PRN ×2 (00:39→04:59)
[2020-06-04] MEDS: HEPARIN SODIUM, PORCINE 5000 UNITS/1 ML VIAL SQ SCH ×3 (01:05→17:33)
[2020-06-04 05:56] LABS: ABG BASE EXCESS -13.1 mmol/L; ABG OXYGEN SATURATION 99.4 % (92.0-98.5); ABG PCO2 25.1 mmHg (35.0-45.0); ABG PH 7.284 (7.350-7.450); ABG PO2 198.9 mmHg (75.0-100.0); COHb 0.2 % (0.5-1.5); MetHb 0.3 % (0.0-1.5); O2Hb 98.9 % (94.0-97.0); SITE, ABG Left Brachial; VT, ABG 450 mL
[2020-06-04] MEDS: PROPOFOL 100 ML IV PRN (06:41)
[2020-06-04] MEDS: IV NS 0.9% 1,000 ML IV PRN (06:42)
--- NOTE | 2020-06-04 07:35 | NUR ---
RN CLOSING NOTES PATIENT REMAINS INTUBATED AND SEDATED. VS STABLE. NO RESPIRATORY DISTRESS NOTED. SINUS RHYTHM HR 72. CURRENTLY ON IV DRIPS OF PROPOFOL 10MCG/KG/MIN, LEVOPHED AT 1MCG/KG/MIN AND INSULIN DRIP AT 2ML/HR. IVF OF 0.9 NS RUNNING AT 150ML/HR. NO SIGNS OF INFILTRATION NOTED. PATIENT REMAINS ON RIGHT SIDE. AYALA CATHETER INDWELLING WELL WITH CLEAR URINE OUTPUT. ALL SAFETY MEASURES IMPLEMENTED PER PROTOCOL, SIDE RAILS UP X 2. BED LOCKED IN LOWEST POSITION. ENDORSED TO NEXT SHIFT NURSE FO SEUN.
[2020-06-04 07:41] LABS: BASOPHILS % (AUTO) 0.1 % (0.0-2.0); HEMATOCRIT 46 % (33-45); HEMOGLOBIN 14.3 g/dL (11.5-14.8); LYMPHOCYTES # (AUTO) 0.7 /CMM (0.8-4.8); LYMPHOCYTES % (AUTO) 6.8 % (20.0-44.0); MEAN CORPUSCULAR HGB CONC 31 g/dl (31.0-36.0); MEAN CORPUSCULAR VOLUME 96 fL (82-100); MONOCYTES # (AUTO) 0.2 /CMM (0.1-1.30); MONOCYTES % (AUTO) 1.8 % (2.0-12.0); NEUTROPHILS % (AUTO) 91.3 % (43.0-81.0); PLATELET COUNT (AUTO) 141 /CMM (150-450); RED BLOOD CELL COUNT(AUTO) 4.81 MIL/uL (4.0-5.2)
--- NOTE | 2020-06-04 08:00 | NUR ---
ICU OVER FLOW RN NOTE PATIENT IN BED ,WITH ETT TO VENT SETTING ORDERED BP55/33 DR GRANGER AT BEDSIDE WITH ORDER 500 ML BOLUS GIVEN ,CONT ON LEVOPHED DRIP WILL STRT DOUBLE CONCENTRATION ORDERED , ON PROPOFOL DRIP ORDERED RT FEMORAL TLC INTACT AND FLUSHED WELL ON INSULIN DRIP PER DR GUAMAN OK TO CONT INSULIN AWARE THAT BLOOD SUGAR 80 WILL CONT TO MONITOR US ABDOMEN GRAYSON
[2020-06-04] MEDS ORDERED: IV NS 0.9% 500 ML IV STA (08:10)
[2020-06-04 09:20] LABS: ALANINE AMINOTRANSFERASE 268 U/L (12-78); ALBUMIN 1.5 g/dL (3.4-5.0); ALKALINE PHOSPHATASE 536 U/L (46-116); ASPARTATE AMINOTRANSFERASE 85 U/L (15-37); BILIRUBIN,DIRECT 0.1 mg/dL (0.0-0.2); BILIRUBIN,TOTAL 0.4 mg/dL (0.2-1.0); CALCIUM, SERUM 7.5 mg/dL (8.5-10.1); CARBON DIOXIDE 16 mmol/L (21-32); CREATININE 2.1 mg/dL (0.6-1.3); GLUCOSE 135 mg/dL (74-106); MAGNESIUM 2.5 mg/dL (1.8-2.4); PHOSPHORUS 2.2 mg/dL (2.5-4.9)
[2020-06-04] MEDS ORDERED: IV D5/0.45 NACL 1,000 ML IV ONE (09:30)
--- NOTE | 2020-06-04 09:30 | NUR ---
ICU OVER FLOE DR GRANGER NOTIFIED THAT BP STILL LOW 55\33OK TO GIVE ANOTHER BOLUS 500 ML NS BLOOD SUGAR 70 DR ESTRADA NOTIFIED VOK TO CONT [id number] WILL MONITOR
[2020-06-04 09:35] LABS: CHLORIDE 138 mmol/L (98-107); POTASSIUM 2.7 mmol/L (3.5-5.1); SODIUM SERUM 170 mmol/L (136-145)
[2020-06-04 09:36] LABS: UREA NITROGEN, BLOOD 129 mg/dL (7-18)
[2020-06-04] MEDS: NOREPINEPHRINE 32 MG in IV NS 0.9% 218 ML IV PRN ×2 (09:51→22:57)
[2020-06-04] MEDS ORDERED: IV NS 0.9% 500 ML IV ONE (10:00)
[2020-06-04] MEDS: MEROPENEM 500 MG in IV NS 0.9% 50 ML IV SCH ×2 (10:09→21:32)
--- NOTE | 2020-06-04 10:30 | NUR ---
ICU OVER FLOW RN NOTE DR SYED NOTIFIED 2.7 NA [address] SKELTON ALSO NOTIFIED NO NEW ORDER GIVEN
[2020-06-04] MEDS: POTASSIUM CL. PREMIX PERIPHER. 50 ML IV SCH ×4 (11:55→14:37)
[2020-06-04 12:07] LABS: CALCIUM, SERUM 7.2 mg/dL (8.5-10.1); CARBON DIOXIDE 18 mmol/L (21-32); CREATININE 1.9 mg/dL (0.6-1.3); GLUCOSE 133 mg/dL (74-106); POTASSIUM 3.5 mmol/L (3.5-5.1)
[2020-06-04 12:20] LABS: SODIUM SERUM 170 mmol/L (136-145)
[2020-06-04 12:21] LABS: CHLORIDE 137 mmol/L (98-107); UREA NITROGEN, BLOOD 111 mg/dL (7-18)
[2020-06-04] MEDS ORDERED: IV D5/0.45 NACL 1,000 ML IV PRN (14:30)
[2020-06-04] MEDS: DEXAMETHASONE SOD PHOSPHATE 10 MG/ML VIAL IV SCH (14:32)
--- NOTE | 2020-06-04 14:37 | NUR ---
Social Work Consult: Pt is a 75 year old female who was admitted to [facility] on 06/03/20 for respiratory failure. SW conducted an APS report for this pt under self neglect as the pt exhibited abnormal labs and severe dehydration. APS report (Intake ID [id number]) was successfully submitted on 06/04/2020 at 2:34 PM.
[2020-06-04] MEDS: Potassium Chloride 20 MEQ in IV D5/0.45 NACL 1,000 ML IV PRN (15:31)
--- NOTE | 2020-06-04 15:43 | NUR ---
ICU OVERFLOW RN NOTE KCL X4 IV GIVEN OERDERED AND IV D51\2 WITH 20 KCL STARTED ORDERED
[2020-06-04] MEDS: INS (REG) DRIP 100 U/100 ML NS IV PRN ×2 (16:20)
[2020-06-04] MEDS: VANCOMYCIN 500 MG in IV D5W 100 ML IV SCH (17:32)
--- NOTE | 2020-06-04 19:34 | NUR ---
icu overflow cont on vent setting and propofol drip and insulin drip and ivf as ordered .will cont to monitor
--- NOTE | 2020-06-04 20:43 | NUR ---
ICU-OF/BEEF SELECTOR POC BLOOD GLUCOSE 91 PER ALGORITHM INSULIN GTT DECREASED TO 1.3 UNITS/HR BY DONALD BERG.
[2020-06-04 21:43] LABS: CHOLESTEROL 86 mg/dL (<200); HDL CHOLESTEROL 36 mg/dL (40-60); LDL 27 mg/dL (0-99); TRIGLYCERIDES 120 mg/dL (30-150)
[2020-06-05] VITALS (23 sets, daily range): BP systolic 56–158; BP diastolic 38–97
[2020-06-05] MEDS: Potassium Chloride 20 MEQ in IV D5/0.45 NACL 1,000 ML IV PRN ×3 (01:05→20:02)
[2020-06-05] MEDS: PROPOFOL 100 ML IV PRN ×2 (01:23→22:57)
[2020-06-05] MEDS: HEPARIN SODIUM, PORCINE 5000 UNITS/1 ML VIAL SQ SCH ×3 (02:02→18:12)
--- NOTE | 2020-06-05 07:00 | NUR ---
RPG PROGRAMMER ANALYST OPENING NOTES RECEIVED PT RESTING COMFORTABLY IN BED AT THIS TIME.PT IS SEDATED. PT ABLE TO RESPOND TO LIGHT STIMULATE. NO S/S OF ANY ACUTE DISTRESS NOTED. NO C/O PAIN AT THIS TIME. PT ON MECHANICAL VENT READING AC 26, TV 450. ETT 7.5/23CM AT LIP. CLAMPED G-TUBE NOTED. STEVE MIDLINE AND R-FEMORAL PICC LINE NOTED, BOTH INTACT, PATENT AND FLUSHING WELL. SAFETY PRECAUTION IN PLACE AND MAINTAINED AT ALL TIMES. BED IN LOWEST LOCKED POSITION, HOB ELEVATED, SIDE RAILS UP X 2, CALL LIGHT AND TABLE WITHIN REACH. WILL CONTINUE TO MONITOR
[2020-06-05] MEDS: INS (REG) DRIP 100 U/100 ML NS IV PRN ×4 (07:02→09:54)
[2020-06-05 07:12] LABS: BASOPHILS % (AUTO) 0.2 % (0.0-2.0); HEMATOCRIT 42 % (33-45); HEMOGLOBIN 13.2 g/dL (11.5-14.8); LYMPHOCYTES % (AUTO) 5.6 % (20.0-44.0); MEAN CORPUSCULAR HGB CONC 32 g/dl (31.0-36.0); MEAN CORPUSCULAR VOLUME 94 fL (82-100); MONOCYTES # (AUTO) 0.2 /CMM (0.1-1.30); MONOCYTES % (AUTO) 1.1 % (2.0-12.0); NEUTROPHILS # (AUTO) 17.2 /CMM (1.8-8.9); NEUTROPHILS % (AUTO) 93.1 % (43.0-81.0); PLATELET COUNT (AUTO) 123 /CMM (150-450); RED BLOOD CELL COUNT(AUTO) 4.46 MIL/uL (4.0-5.2); WHITE BLOOD COUNT (AUTO) 18.5 K/uL (4.3-11.0)
[2020-06-05 07:59] LABS: CALCIUM, SERUM 7.6 mg/dL (8.5-10.1); CREATININE 1.3 mg/dL (0.6-1.3); MAGNESIUM 1.8 mg/dL (1.8-2.4); PHOSPHORUS 1.8 mg/dL (2.5-4.9); POTASSIUM 3.6 mmol/L (3.5-5.1)
--- NOTE | 2020-06-05 08:21 | NUR ---
WOUND CARE CONSULT: REVIEWED CHART, NURSING DOCUMENTATION AND PHOTO WHICH INDICATES SACRAL SCARRING AND BUTTOCK DISCOLORATION, PRESENT ON ADMISSION. RECOMMENDATIONS MADE FOR SKIN PROTECTION. DISCUSSED WITH NURSING STAFF. [facility] ON [facility] B[facility]. MD IN AGREEMENT WITH PLAN OF CARE.
[2020-06-05] MEDS: BLOOD SUGAR DIAGNOSTIC 1 EACH STRIP IN SCH ×9 (08:29→21:04)
[2020-06-05] MEDS: DEXAMETHASONE SOD PHOSPHATE 10 MG/ML VIAL IV SCH (09:43)
[2020-06-05] MEDS: MEROPENEM 500 MG in IV NS 0.9% 50 ML IV SCH ×2 (09:44→21:05)
[2020-06-05] MEDS ORDERED: IV D5W 1,000 ML IV ONE (11:30)
[2020-06-05] MEDS ORDERED: DEXTROSE 50%-WATER 50 ML DISP.SYRIN IV PRN (14:00)
--- NOTE | 2020-06-05 15:52 | NUR ---
PT ON SLIDING SCALE Q4HR, DOCTOR NATALIE MADE AWARE OF PREVIOUS Q1HR ACCU CHECK. RECEIVED ORDERS FOR Q4HR ACCU CHECK. ORDERS CARRIED OUT. WILL CONTINUE TO MONITOR
[2020-06-05] MEDS ORDERED: Sodium Phosphate 15 MMOL in IV NS 0.9% 245 ML IV SCH (16:30)
[2020-06-05] MEDS: INSULIN REGULAR, HUMAN 100 UNIT/ML 3 ML VIAL SQ PRN ×2 (16:42→21:31)
[2020-06-05] MEDS ORDERED: VANCOMYCIN 500 MG in IV D5W 100 ML IV SCH (17:00)
[2020-06-05] MEDS: VANCOMYCIN 500 MG in IV D5W 100 ML IV SCH (18:12)
--- NOTE | 2020-06-05 18:52 | NUR ---
PER DR ESTRADA, RESUME PT's DIET PER SNF. CALLED PLACE TO [facility], SPOKE WITH JOANN, CADMIUM PLATER AND PETEY, PER JOANN, SNF WILL FOLLOW UP AND CALL US BACK WITH INFORMATION. WILL ENDORSE TO FINISHING ROOM SUPERVISOR NURSE TO FOLLOW UP
--- NOTE | 2020-06-05 19:07 | NUR ---
FINANCIAL SALES ADVISOR CLOSING NOTES PT RESTING COMFORTABLY IN BED AT THIS TIME. PT IS EASY TO AROUSE .PT REMAINED STABLE THROUGHOUT SHIFT. ALL CARE, NEED, MEDICATIONS AND TREATMENT ADMINISTERED ANTICIPATED PER ORDER. PT KEPT CLEAN AND DRY. SAFETY PRECAUTION IN PLACE AND MAINTAINED AT ALL TIMES. BED IN LOWEST LOCKED POSITION, HOB ELEVATED, SIDE RAILS UP X 2, CALL LIGHT AND TABLE WITHIN REACH. WILL ENDORSE TO CONSTRUCTION SAFETY CONSULTANT NURSE FOR SEUN
[2020-06-05] MEDS: NOREPINEPHRINE 32 MG in IV NS 0.9% 218 ML IV PRN (19:28)
--- NOTE | 2020-06-05 19:30 | NUR ---
RN NOTE RECEIVED PATIENT IN BED, SEDATED. PATIENT IN NO S/SX OF ACUTE DISTRESS AT THIS TIME. PATIENT'S BREATHING IS EVEN AND UNLABORED. PATIENT ON ET TUBE CONNECTED TO MECHANICAL VENTILATOR WITH SETTINGS PRESCRIBED, TOLERATING WELL SATURATING AT 100%. PATIENT ON BEDSIDE MONITOR READING SR, HR IS 62. NOTED IV SITE STEVE MIDLINE, AND R FEMORAL 3L CATHETER, PATENT AND FLUSHING WELL, NO S/S OF INFECTION WITH DIPRIVAN INFUSING AT 20 MCG/KG/MIN, LEVOPHED AT 0.3 MCG/KG/MIN, AND KCL AT 125 ML/HR. NOTED GTUBE INTACT, CLAMPED. AYALA CATHETER CONNECTED TO URINE BAG IN PLACE DRAINING TO A CLEAR YELLOW OUTPUT. SAFETY MEASURES HAVE BEEN PROVIDED AND IMPLEMENTED. PATIENT BED ALARM IS ON. HEAD OF BED ELEVATED. BED IS LOCKED, IN LOWEST POSITION AND SIDE RAILS UP. CALL LIGHT WITHIN REACH OF THE PATIENT. WILL CONTINUE TO MONITOR AND REASSESS FOR ANY CHANGES.
[2020-06-06] VITALS (23 sets, daily range): BP systolic 83–157; BP diastolic 45–109
[2020-06-06] MEDS: INSULIN REGULAR, HUMAN 100 UNIT/ML 3 ML VIAL SQ PRN ×4 (01:17→23:40)
[2020-06-06] MEDS: HEPARIN SODIUM, PORCINE 5000 UNITS/1 ML VIAL SQ SCH ×3 (01:21→18:54)
[2020-06-06] MEDS: BLOOD SUGAR DIAGNOSTIC 1 EACH STRIP IN SCH ×5 (01:22→21:00)
[2020-06-06] MEDS: Potassium Chloride 20 MEQ in IV D5/0.45 NACL 1,000 ML IV PRN ×2 (05:51→20:03)
--- NOTE | 2020-06-06 07:17 | NUR ---
RT Pt received on [facility] vent on AC 26 450 100% +0 settings. Pt is Intubated with ETT 7.5, 23 @lip. Vent plugged in to red outlet, ETT secure with alarms on and audible and ambu bag at hob. Small to Moderate thick yellow secretions suctioned via ETT. CPT will be performed per md order. No respiratory distress noted at this time.
[2020-06-06 07:58] LABS: BASOPHILS % (AUTO) 0.2 % (0.0-2.0); HEMATOCRIT 42 % (33-45); HEMOGLOBIN 13.5 g/dL (11.5-14.8); LYMPHOCYTES # (AUTO) 0.8 /CMM (0.8-4.8); LYMPHOCYTES % (AUTO) 4.4 % (20.0-44.0); MEAN CORPUSCULAR HGB CONC 32 g/dl (31.0-36.0); MEAN CORPUSCULAR VOLUME 93 fL (82-100); MONOCYTES # (AUTO) 0.1 /CMM (0.1-1.30); MONOCYTES % (AUTO) 0.8 % (2.0-12.0); NEUTROPHILS # (AUTO) 16.7 /CMM (1.8-8.9); NEUTROPHILS % (AUTO) 94.6 % (43.0-81.0); PLATELET COUNT (AUTO) 112 /CMM (150-450); RED BLOOD CELL COUNT(AUTO) 4.52 MIL/uL (4.0-5.2); WHITE BLOOD COUNT (AUTO) 17.6 K/uL (4.3-11.0)
[2020-06-06 08:12] LABS: CALCIUM, SERUM 7.5 mg/dL (8.5-10.1); CREATININE 0.9 mg/dL (0.6-1.3); MAGNESIUM 1.5 mg/dL (1.8-2.4); PHOSPHORUS 2.9 mg/dL (2.5-4.9)
[2020-06-06 09:03] LABS: ABG BASE EXCESS -6.7 mmol/L; ABG OXYGEN SATURATION 96.9 % (92.0-98.5); ABG PCO2 22.1 mmHg (35.0-45.0); ABG PH 7.453 (7.350-7.450); ABG PO2 82.6 mmHg (75.0-100.0); COHb 0.4 % (0.5-1.5); MetHb 0.3 % (0.0-1.5); O2Hb 96.2 % (94.0-97.0); PEEP,BG 0 cm H2O; SITE, ABG Left Brachial; VENT MODE, BG AC 50%; VT, ABG 450 mL
[2020-06-06] MEDS: DEXAMETHASONE SOD PHOSPHATE 10 MG/ML VIAL IV SCH (09:09)
[2020-06-06] MEDS: Magnesium 1GM/D5W 100ML PREMIX 100 ML IV SCH ×2 (09:59→11:18)
[2020-06-06] MEDS: MEROPENEM 500 MG in IV NS 0.9% 50 ML IV SCH ×2 (10:39→23:00)
--- NOTE | 2020-06-06 12:04 | NUR ---
RT ORDER FOR VENT CHANGES RECVD FROM DR. OLGUIN. RATE OF 20 AND 40% FIO2 CHANGES MADE ON VENT.
--- NOTE | 2020-06-06 14:45 | NUR ---
CT NOTE SPOKE WITH SLIP INJECTOR AND APPLICATOR SOON PT IS UNSTABLE AND WILL NOT BE ABLE TO PERFORM CT SCAN TODAY WILL SPEAK WITH Monday06/07/2020 STAFF IN REGARDS TO PT STABILITY
[2020-06-06] MEDS: PROPOFOL 100 ML IV PRN (15:55)
--- NOTE | 2020-06-06 16:09 | NUR ---
bs 112 no coverage noted
[2020-06-06] MEDS: VANCOMYCIN HCL 0.75 GM in IV D5W 250 ML IV SCH (18:55)
--- NOTE | 2020-06-06 20:00 | NUR ---
RN NOTES NOTED PT'S TEMP 93 DEGREES @1999. GIS PROFESSOR MADE AWARE. COLE THORPE APPLIED. WILL CONTINUE TO ASSESS AND MONITOR THROUGHOUT THE SHIFT.
[2020-06-06] MEDS: NOREPINEPHRINE 32 MG in IV NS 0.9% 218 ML IV PRN (21:52)
[2020-06-07] VITALS (25 sets, daily range): BP systolic 82–152; BP diastolic 55–86
[2020-06-07] MEDS: BLOOD SUGAR DIAGNOSTIC 1 EACH STRIP IN SCH ×6 (01:00→21:48)
[2020-06-07] MEDS: HEPARIN SODIUM, PORCINE 5000 UNITS/1 ML VIAL SQ SCH ×3 (03:49→17:19)
[2020-06-07] MEDS: Potassium Chloride 20 MEQ in IV D5/0.45 NACL 1,000 ML IV PRN ×2 (04:25→17:50)
[2020-06-07] MEDS: INSULIN REGULAR, HUMAN 100 UNIT/ML 3 ML VIAL SQ PRN ×5 (05:00→22:13)
[2020-06-07] MEDS: PROPOFOL 100 ML IV PRN ×2 (06:00→16:59)
--- NOTE | 2020-06-07 07:30 | NUR ---
RN OPENING NOTES RECEIVED PATIENT IN BED, SEDATED, ON VENT, TOLERATING SETTINGS WELL, SR ON TELEMONITOR 70-80, AYALA CATH IN PLACE, DRAINING YELLOW CLEAR URINE BY GRAVITY, NPO STATUS NOTED, MIDLINE ON L UA NOTED, INTACT , PATENT, FLUSHED WELL, FEMORAL TLC NOTED, INTACT AND PATENT, RUNNING PROPOFOL @ 30MCG/KG.MIN AND LEVOPHED @ 0.5 MCG/KG.MIN. TOLERATING WELL, BLOOD PRESSURE MAINTAINED STABLE, SAFETY MEASURES IN PLACE, HOB ELEVATED, BES IS LOCKED IN LOWEST POSITION, WILL CONT TO MONITOR
--- NOTE | 2020-06-07 07:35 | NUR ---
RN CLOSING NOTES PATIENT RESTING IN BED COMFORTABLY,PT SEDATED WELL WITH 60MCG/KG/M OF DIPRIVAN. TOLERATING VENT SETTINGS ORDERED. NO SIGNS OF ACUTE DISTRESS. BREATHING EVEN AND UNLABORED. TELE MONITORS READING SR (80s). IV LINE REMAINED PATENT AND INTACT WITHIN END OF SHIFT, ONGOING LEVO @0.5MCG/KG/MIN, MONITORED PER PROTOCOL. SAFETY PRECAUTIONS IN PLACE WITH BED IN LOWEST POSITION, CALL LIGHT WITHIN REACH, BREAKS ON, SIDE RAILS UP. ALL NEEDS ATTENDED TO; SHIFT ASSESSMENT/BEDBATH/SKIN/WOUND CARE DONE. PATIENT KEPT CLEAN AND DRY. WILL ENDORSE TO ONCOMING SHIFT FOR SEUN WITH ALL PERTINENT INFO REGARDING PATIENT STATUS.
[2020-06-07 08:04] LABS: BASOPHILS % (AUTO) 0.2 % (0.0-2.0); HEMATOCRIT 40 % (33-45); HEMOGLOBIN 13.3 g/dL (11.5-14.8); LYMPHOCYTES # (AUTO) 1.5 /CMM (0.8-4.8); LYMPHOCYTES % (AUTO) 13.5 % (20.0-44.0); MEAN CORPUSCULAR HGB CONC 33 g/dl (31.0-36.0); MEAN CORPUSCULAR VOLUME 91 fL (82-100); MONOCYTES # (AUTO) 0.1 /CMM (0.1-1.30); MONOCYTES % (AUTO) 0.8 % (2.0-12.0); NEUTROPHILS # (AUTO) 9.7 /CMM (1.8-8.9); NEUTROPHILS % (AUTO) 85.5 % (43.0-81.0); PLATELET COUNT (AUTO) 111 /CMM (150-450); RED BLOOD CELL COUNT(AUTO) 4.44 MIL/uL (4.0-5.2); WHITE BLOOD COUNT (AUTO) 11.3 K/uL (4.3-11.0)
[2020-06-07 08:30] LABS: CALCIUM, SERUM 6.9 mg/dL (8.5-10.1); CREATININE 0.8 mg/dL (0.6-1.3); MAGNESIUM 1.3 mg/dL (1.8-2.4); PHOSPHORUS 1.8 mg/dL (2.5-4.9); POTASSIUM 3.9 mmol/L (3.5-5.1)
--- NOTE | 2020-06-07 09:20 | NUR ---
RN NOTE WILL START SEDATION VACATION, ACCORDING FOR PROTOCOL FOR RT WEANING OF VENT , PATIET IS SEDATED, SLEEPING
--- NOTE | 2020-06-07 09:35 | NUR ---
unable to wean the pt. due to 37 respirations on off sedation. Addendum: 06/07/20 at 0935 by ARMIDA BAXTER RT Amended: Links added.
--- NOTE | 2020-06-07 09:49 | NUR ---
PATIENT WAS UNABLE TO TOLERATE SEDATION VACATION, STOOPED ON RATE 20MCG/KG/MIN. INCREASED TO 35 MCG/KG/MIN, SEDATED, TOLERATING WELL, RR 26. CALM AND RELAXED I BED , CONT TO MONITOR
[2020-06-07] MEDS: DEXAMETHASONE SOD PHOSPHATE 10 MG/ML VIAL IV SCH (10:07)
[2020-06-07] MEDS: MEROPENEM 500 MG in IV NS 0.9% 50 ML IV SCH ×2 (10:08→21:49)
[2020-06-07] MEDS: Magnesium 1GM/D5W 100ML PREMIX 100 ML IV SCH ×4 (11:00→14:41)
[2020-06-07 11:44] LABS: LYMPHOCYTES % (MANUAL) 10 % (16-48); MONOCYTES % (MANUAL) 1 % (0-11.0); MYELOCYTES % 2 % (0-0); NEUTROPHILS % (MANUAL) 87 (42-76)
[2020-06-07] MEDS: VANCOMYCIN HCL 0.75 GM in IV D5W 250 ML IV SCH (12:08)
[2020-06-07] MEDS ORDERED: Sodium Phosphate 15 MMOL in IV NS 0.9% 245 ML IV SCH (14:00)
--- NOTE | 2020-06-07 15:30 | NUR ---
RN NOTE Received phone call from lab blood bank ([facility]) notified plasma is ready, however patient has only one midline with Amiodarone drip, placed order for PICC line placement earlier, notifyed by nursing supervisor toy parts former, that PICC line nurse will arrive at 1999, notified blood bank and will endorse to aircraft engine mechanic overhaul Addendum: 06/07/20 at 1534 by Dennise Smith RN WRONG DOCUMENTATION, DISREGARD
[2020-06-07] MEDS: NOREPINEPHRINE 32 MG in IV NS 0.9% 218 ML IV PRN (17:49)
--- NOTE | 2020-06-07 19:04 | NUR ---
RIBBON CLEANER OVERFLOW CLOSING NOTES Patient resting in bed comfortably. Patient sedated well on Diprivan and having Levophed drip. Tele monitor reading SR. IV line remained patent and intact to right femoral and left upper arm. Safety precautions in place, with bed in lowest position. Side rails up. Patient's head of bed kept elevated. Patient kept clean and dry, repositioned frequently. Will endorse to next shift to oncoming shift for SEUN.
--- NOTE | 2020-06-07 19:30 | NUR ---
RN OPENING NOTES RECEIVED PATIENT IN BED SEDATED ON MECHANICAL VENTILATION, TRACH/ETT 7.11/08 AT LIP. AC 20 TV 450 FIO2 40% PEEP OF 0 TOLERATING SETTINGS WELL. NO SOB. NO RESP DISTRESS BREATHING EVEN AND UNLABORED. PT PRESENTS WITH SR ON TELEMONITOR 70-80 AND NPO STATUS. STEVE MIDLINE, FEMORAL TLC FLUSHED ASEPTICALLY, INTACT AND PATENT. IV DRIPS PROPOFOL @ 35MCG/KG/MIN AND LEVOPHED @ 0.5 MCG/KG/MIN. WILL TITRATE PER PROTOCOL. AYALA CATH IN PLACE, DRAINING LIGHT YELLOW URINE FREE OF SEDIMENT. SAFETY MEASURES IN PLACE, HOB ELEVATED, SIDE RAILS UP X2 BED IS LOCKED IN LOWEST POSITION, WILL CONT TO MONITOR
[2020-06-08] VITALS (24 sets, daily range): BP systolic 75–159; BP diastolic 30–78
[2020-06-08] MEDS: BLOOD SUGAR DIAGNOSTIC 1 EACH STRIP IN SCH ×6 (01:59→21:57)
[2020-06-08] MEDS: Potassium Chloride 20 MEQ in IV D5/0.45 NACL 1,000 ML IV PRN ×3 (02:14→21:24)
[2020-06-08] MEDS: PROPOFOL 100 ML IV PRN ×3 (02:22→15:44)
[2020-06-08] MEDS: INSULIN REGULAR, HUMAN 100 UNIT/ML 3 ML VIAL SQ PRN ×4 (02:48→21:56)
[2020-06-08] MEDS: HEPARIN SODIUM, PORCINE 5000 UNITS/1 ML VIAL SQ SCH ×3 (02:49→17:40)
[2020-06-08] MEDS: VANCOMYCIN HCL 0.75 GM in IV D5W 250 ML IV SCH ×2 (06:00→14:21)
--- NOTE | 2020-06-08 06:14 | NUR ---
WILL NOT ADMINISTER VANCO AT THIS TIME, MEDICATION SCHEDULED FOR 0600. TIMED DRAW OF VANCO TROUGH SCHEDULED 0500 STILL PENDING RESULT. WILL WAIT FOR VANCO TROUGH LEVEL BEFORE ADMINISTRATION. CHARGE NURSE AWARE. Addendum: 06/08/20 at 0654 by KRYSTA TERAN RN LAB RESULTS AT THIS TIME STILL NOT UPDATED. WILL ENDORSE TO YOUSUF TAPIA
[2020-06-08 07:12] LABS: BASOPHILS % (AUTO) 0.1 % (0.0-2.0); HEMATOCRIT 37 % (33-45); HEMOGLOBIN 12.1 g/dL (11.5-14.8); LYMPHOCYTES # (AUTO) 1.6 /CMM (0.8-4.8); LYMPHOCYTES % (AUTO) 14.6 % (20.0-44.0); MEAN CORPUSCULAR HGB CONC 33 g/dl (31.0-36.0); MEAN CORPUSCULAR VOLUME 91 fL (82-100); MONOCYTES # (AUTO) 0.1 /CMM (0.1-1.30); MONOCYTES % (AUTO) 0.7 % (2.0-12.0); NEUTROPHILS # (AUTO) 9.1 /CMM (1.8-8.9); NEUTROPHILS % (AUTO) 84.6 % (43.0-81.0); PLATELET COUNT (AUTO) 106 /CMM (150-450); RED BLOOD CELL COUNT(AUTO) 4.03 MIL/uL (4.0-5.2); WHITE BLOOD COUNT (AUTO) 10.8 K/uL (4.3-11.0)
[2020-06-08 07:30] LABS: CALCIUM, SERUM 6.8 mg/dL (8.5-10.1); CREATININE 0.6 mg/dL (0.6-1.3); MAGNESIUM 1.6 mg/dL (1.8-2.4); PHOSPHORUS 1.8 mg/dL (2.5-4.9)
--- NOTE | 2020-06-08 07:46 | NUR ---
PER [facility], WAIT FOR VANCO TROUGH TO COME BACK. THEN ADMINISTER IF WITHIN NORMAL LIMIT. LEVOPHED WILL BE DELIVERED SOON.
--- NOTE | 2020-06-08 07:47 | NUR ---
CLOSING NOTE NO SIGNIFICANT CHANGES. PT STILL ON SAME VENT SETTINGS ORDERED. TOLERATING WELL. NO SOB OR RESP DISTRESS NOTED. SATURATION AT THIS TIME IS 95%. ON TELE MONITORING NSR, HR IN 70S. SBP MAINTAINED WITH LEVOPHED AT 0.3 MCG/KG/MIN AND STILL SEDATED WITH DIPRIVAN 35MCG/KG/MIN. STILL WITH D5 1/2 NS WITH POTASSIUM RUNNING @125CC/HR. SAFETY MEASURES IN PLACE. HOB ELEVATED. BED LOCKED IN LOWEST POSITION. SIDE RAILS UP X2. T/R Q2H. ENDORSED TO AM NURSE.
--- NOTE | 2020-06-08 07:57 | NUR ---
PT RECEIVED IN BED ON PRESCRIBED ETT/VENT SETTINGS: ETT 7.5/23, AC 20, TV 450, FIO2 40%, PEEP 0. NO RESPIRATORY DISTRESS OR SOB. PT IS SEDATED CURRENTLY ON 35 MCG/KG/MIN OF PROPOFOL. PT ON MONITOR SHOWING NSR 70s. PT IS CURRENTLY NPO ORDERED. PT RIGHT FEMORAL PICC RUNNING D5 1/2 MS AT 125, LEVOPHED DRIP AT 0.3/MCG/KG/MIN. NO SIGNS OF INFECTION OR INFILTRATION. PT IN BED LOCKED LOWEST POSITION, CALL LIGHT WITHIN REACH, ALL SAFETY MEASURES IN PLACE. WILL CONTINUE TO MONITOR CLOSELY
[2020-06-08 08:09] LABS: POTASSIUM 2.8 mmol/L (3.5-5.1)
[2020-06-08] MEDS ORDERED: POTASSIUM PHOSPHATE MM 15 MMOL in IV NS 0.9% 250 ML IV SCH (08:30)
[2020-06-08] MEDS: Magnesium 1GM/D5W 100ML PREMIX 100 ML IV SCH ×2 (09:07→10:29)
[2020-06-08] MEDS: POTASSIUM CL. PREMIX PERIPHER. 50 ML IV SCH ×6 (09:07→17:35)
[2020-06-08] MEDS: DEXAMETHASONE SOD PHOSPHATE 10 MG/ML VIAL IV SCH (09:08)
[2020-06-08] MEDS: POTASSIUM PHOSPHATE MM 7.5 MMOL in IV NS 0.9% 100 ML IV SCH ×2 (10:17→13:03)
--- NOTE | 2020-06-08 10:30 | NUR ---
PROPOFOL TITRATED FROM 35 MCG/KG/HOUR TO 20 MCG/KG/HOUR PER SEDATION VACATION. PT EYES OPEN, MILD AGITATION NOTED, DRIP INCREASED TO 25 MCG/KG/HR.
[2020-06-08 11:23] LABS: BAND % (MANUAL) 12 % (0.0-5.0); LYMPHOCYTES % (MANUAL) 6 % (16-48); MONOCYTES % (MANUAL) 1 % (0-11.0); MYELOCYTES % 1 % (0-0); NEUTROPHILS % (MANUAL) 80 (42-76)
[2020-06-08] MEDS: MEROPENEM 500 MG in IV NS 0.9% 50 ML IV SCH ×2 (11:46→21:24)
--- NOTE | 2020-06-08 14:00 | NUR ---
PT DOES NOT TOLERATE REPOSITIONING WELL;BP DECREASED SBP< 90, MAP <65, LEVO INCREASED, SEE IV SPREADSHEETS FOR TITRATIONS
--- NOTE | 2020-06-08 14:37 | NUR ---
PER MD MILTON, NO EXTUBATION TODAY, TO BE REASSESSED TOMORROW. DIRECTOR ELECTRONICS [employer] NOTIFIED, ORDERS RECEIVED FOR TUBE FEEDING GLUCERNA 1.2 AT 20 ML/HR
--- NOTE | 2020-06-08 15:21 | NUR ---
PT 1500 VITALS OF BP 126/54, PULSE 83, AND O2 SAT 93 INCORRECT, CHARTED ON WRONG PT. CORRECT VITALS INPUTTED: 99/54, PULSE 62, O2 SAT 96%, RR 20
[2020-06-08] MEDS: NOREPINEPHRINE 32 MG in IV NS 0.9% 218 ML IV PRN ×2 (16:46→21:54)
[2020-06-08] MEDS: GLUCERNA 1.2 1,000 ML BOTTLE GT PRN (18:18)
--- NOTE | 2020-06-08 18:49 | NUR ---
PT REMAINS IN BED, SEDATED, OPENS EYES SPONTANEOUSLY WITH MINIMAL MOVEMENT. PT ON PRESCRIBED ETT/VENT SETTINGS 7.5/23, AC 20, TV 450, 40% FIO2, PEEP 0. O2 SAT 94-99%. NO RESPIRATORY DISTRESS OR SOB. PT ON MONITOR SHOWING SR 50s-70s. PT HAS RIGHT FEMORAL PICC RUNNING 20MEQ K + D5-1/2 NS AT 125 ML/HR, PROPOFOL AT 25 MCG/KG/MIN, LEVO AT 0.9 MCG/KG/MIN. PT STEVE MIDLINE INTACT, NO SIGNS OF INFECTION OR INFILTRATION. PT G-TUBE INTACT AND AUSCULTATED, NO RESIDUAL., RUNNING GLUCERNA 1.2 AT 20 ML/HR. PT AYALA DRAINING YELLOW CLEAR URINE, 2600 ML REMOVED TODAY, NO BM. REPOSITIONING MINIMIZED DUE TO PT BLOOD PRESSURE DROPPING WHENEVER REPOSITIONED. PT IN BED LOCKED LOWEST POSITION, CALL LIGHT WITHIN REACH, ALL SAFETY MEASURES IN PLACE. REPORT GIVEN TO ONCOMING RN FOR SEUN
[2020-06-09] VITALS (23 sets, daily range): BP systolic 86–145; BP diastolic 46–74
[2020-06-09] MEDS: HEPARIN SODIUM, PORCINE 5000 UNITS/1 ML VIAL SQ SCH ×3 (01:44→16:47)
[2020-06-09] MEDS: INSULIN REGULAR, HUMAN 100 UNIT/ML 3 ML VIAL SQ PRN ×5 (01:46→16:27)
[2020-06-09] MEDS: BLOOD SUGAR DIAGNOSTIC 1 EACH STRIP IN SCH ×6 (01:47→21:56)
[2020-06-09] MEDS: PROPOFOL 100 ML IV PRN ×2 (02:10→15:01)
--- NOTE | 2020-06-09 03:39 | NUR ---
RN notes In bed, comfortably resting with no distress noted. Breathing even and unlabored. Vent setting well tolerated. Sedated but easy to arouse, on diprivan drip at 25mcg/kg/hr, no adverse effect noted. On Levophed drip started at 0.9mcg/kg/hr and tirtrated to 0.4mcg/kg/hr maintaing systolic BP at 110-120's. No side effects noted effect noted. No physical manifestation of pain or discomfort. No significant change of condition noted. Vital signs WNL. Remains afebrile with skin warm and dry to touch. Will continue to monitor and will endorse to next shift for continuity of care.
[2020-06-09] MEDS: Potassium Chloride 20 MEQ in IV D5/0.45 NACL 1,000 ML IV PRN ×2 (05:18→15:02)
[2020-06-09 06:47] LABS: BASOPHILS % (AUTO) 0.1 % (0.0-2.0); HEMATOCRIT 37 % (33-45); LYMPHOCYTES # (AUTO) 1.3 /CMM (0.8-4.8); LYMPHOCYTES % (AUTO) 11.5 % (20.0-44.0); MEAN CORPUSCULAR HGB CONC 32 g/dl (31.0-36.0); MEAN CORPUSCULAR VOLUME 92 fL (82-100); MONOCYTES # (AUTO) 0.1 /CMM (0.1-1.30); MONOCYTES % (AUTO) 0.6 % (2.0-12.0); NEUTROPHILS # (AUTO) 9.9 /CMM (1.8-8.9); NEUTROPHILS % (AUTO) 87.8 % (43.0-81.0); PLATELET COUNT (AUTO) 113 /CMM (150-450); RED BLOOD CELL COUNT(AUTO) 4.04 MIL/uL (4.0-5.2); WHITE BLOOD COUNT (AUTO) 11.3 K/uL (4.3-11.0)
[2020-06-09 07:06] LABS: CALCIUM, SERUM 7.6 mg/dL (8.5-10.1); CREATININE 0.6 mg/dL (0.6-1.3); POTASSIUM 4.5 mmol/L (3.5-5.1)
--- NOTE | 2020-06-09 08:00 | NUR ---
RN OPENING NOTES, Patient In bed, on mechanical ventilator, no sob/acute distress noted, tolerated settings well, sedated arouses to tactile stimuli, on diprivan at 25mcg/kg/hr, and Levophed drip started at 0.3mcg/kg/hr, and ivf as ordered all infusing well and patient tolerated all well, afebrile, Will continue to monitor closely.
[2020-06-09] MEDS: NOREPINEPHRINE 32 MG in IV NS 0.9% 218 ML IV PRN ×2 (08:14→21:56)
[2020-06-09] MEDS: DEXAMETHASONE SOD PHOSPHATE 10 MG/ML VIAL IV SCH (08:28)
[2020-06-09] MEDS: VANCOMYCIN HCL 0.75 GM in IV D5W 250 ML IV SCH (08:29)
[2020-06-09] MEDS: MEROPENEM 500 MG in IV NS 0.9% 50 ML IV SCH ×2 (10:06→21:39)
--- NOTE | 2020-06-09 11:20 | NUR ---
RN NOTES, PATIENT SEEN BY DR MILTON DELIVERY CREW MEMBER AT THIS TIME, PER MD CONTINUE WITH PRESSORS AND SEDATION AT THIS TIME.
--- NOTE | 2020-06-09 19:15 | NUR ---
RN CLOSING NOTES, Patient In bed, on mechanical ventilator, no sob/acute distress noted, tolerated settings well, sedated arouses to tactile stimuli, no significant change in condition during the day, continue in pressors and sedation, endorsed to Rosa RN for continuation of care.
[2020-06-10] VITALS (22 sets, daily range): BP systolic 88–187; BP diastolic 43–91
[2020-06-10] MEDS: Potassium Chloride 20 MEQ in IV D5/0.45 NACL 1,000 ML IV PRN (00:30)
[2020-06-10] MEDS: BLOOD SUGAR DIAGNOSTIC 1 EACH STRIP IN SCH ×6 (01:29→21:09)
[2020-06-10] MEDS: HEPARIN SODIUM, PORCINE 5000 UNITS/1 ML VIAL SQ SCH ×3 (01:31→17:33)
[2020-06-10] MEDS: INSULIN REGULAR, HUMAN 100 UNIT/ML 3 ML VIAL SQ PRN ×6 (01:37→21:20)
[2020-06-10] MEDS: VANCOMYCIN HCL 0.75 GM in IV D5W 250 ML IV SCH ×2 (02:00→20:08)
[2020-06-10] MEDS: PROPOFOL 100 ML IV PRN ×4 (04:59→23:44)
[2020-06-10] MEDS: GLUCERNA 1.2 1,000 ML BOTTLE GT PRN (05:01)
[2020-06-10 07:21] LABS: BILIRUBIN,TOTAL 0.4 mg/dL (0.2-1.0); CALCIUM, SERUM 7.3 mg/dL (8.5-10.1); CREATININE 0.6 mg/dL (0.6-1.3); MAGNESIUM 1.6 mg/dL (1.8-2.4); PHOSPHORUS 2.2 mg/dL (2.5-4.9); POTASSIUM 3.6 mmol/L (3.5-5.1); TOTAL PROTEIN, SERUM 4.6 g/dL (6.4-8.2)
--- NOTE | 2020-06-10 07:30 | NUR ---
ICU-OF/EMAIL MARKETING COORDINATOR REPORT TO MICHEL BERG FOR CONT OF CARE.
--- NOTE | 2020-06-10 08:00 | NUR ---
PT RECEIVED IN BED, CURRENTLY SEDATED ON PRESCRIBED VENT SETTINGS, ETT 7.5/23, AC 20, TV 450, 40% FIO2. PEEP 0. PT ON MONITOR SHOWING SR/SB. PT HAS AYALA CATHETER IN PLACE, DRAINING YELLOW CLEAR URINE. PT ON G-TUBE FEEDING GLUCERNA. PT IV ACCESS REMAINS INTACT, NO SIGNS OF INFECTION. BED IN LOCKED LOWEST POSITION, CALL LIGHT WITHIN REACH, ALL SAFETY MEASURES IN PLACE. WILL CONTINUE TO MONITOR CLOSELY
[2020-06-10] MEDS ORDERED: Magnesium 1GM/D5W 100ML PREMIX PIGGYBACK IV ONE (09:00)
[2020-06-10] MEDS ORDERED: Magnesium 1GM/D5W 100ML PREMIX 100 ML IV SCH (09:00)
[2020-06-10] MEDS ORDERED: NA PHOS,M-B/NA PHOS,DI-BA 1 EA ENEMA RC PRN (09:30)
[2020-06-10] MEDS: MEROPENEM 500 MG in IV NS 0.9% 50 ML IV SCH ×2 (09:30→21:09)
[2020-06-10] MEDS: DEXAMETHASONE SOD PHOSPHATE 10 MG/ML VIAL IV SCH (09:30)
[2020-06-10] MEDS ORDERED: HOME MED MISCELLANEOUS XX SCH ×2 (09:30)
[2020-06-10] MEDS ORDERED: BISACODYL SUPP (10 MG) 10 MG/SUPP.RECT SUPP.RECT RC PRN (09:30)
[2020-06-10] MEDS: ASCORBIC ACID 500 MG TABLET GT SCH (09:34)
[2020-06-10] MEDS: CHOLECALCIFEROL 1,000 UNIT TABLET (VIT D3) PO SCH (09:41)
[2020-06-10] MEDS: ASPIRIN 81 MG TAB.CHEW GT SCH (09:41)
[2020-06-10] MEDS: MULTIVIT W/MINERALS 1 TAB TABLET GT SCH (09:41)
[2020-06-10] MEDS: ATORVASTATIN 40 MG TABLET GT SCH (09:41)
[2020-06-10] MEDS: NOREPINEPHRINE 32 MG in IV NS 0.9% 218 ML IV PRN (10:45)
[2020-06-10] MEDS ORDERED: NEUTRA PHOS 1 POWD.PACKET GT ONE (11:30)
[2020-06-10] MEDS: PROSOURCE / PROSTAT (PYXIS) 30 ML UDC GT SCH ×2 (13:51→17:24)
--- NOTE | 2020-06-10 15:07 | NUR ---
fio2 increased from 40% to 60% due to desaturation. RN notified on changes made. Addendum: 06/10/20 at 1508 by ARMIDA BAXTER RT Amended: Links added.
[2020-06-10] MEDS ORDERED: ARGININE/GLUTAMINE/CALCIUM BMB 1 EACH POWD.PACK GT SCH (17:00)
--- NOTE | 2020-06-10 18:54 | NUR ---
ICU OVERFLOW RN CLOSING NOTES, Patient is in bed, on mechanical ventilator, Patient is sedated and on Diprovan.Patient is also on Levophed.Patient's head of the bed kept elevated for aspiration prevention. On g tube feeding janis well, No residual noted during shift. Bed in lowest and locked position. Patient turned and repositioned. Report given to oncoming nurse for continuation of care.
[2020-06-10] MEDS: NOREPINEPHRINE 8 MG in IV NS 0.9% 242 ML IV PRN (20:20)
[2020-06-11] VITALS (22 sets, daily range): BP systolic 77–131; BP diastolic 40–81
[2020-06-11] MEDS: BLOOD SUGAR DIAGNOSTIC 1 EACH STRIP IN SCH ×5 (01:07→23:31)
--- NOTE | 2020-06-11 05:00 | NUR ---
ICU-OF/DIESEL POWERPLANT MECHANIC PT NOTED WITH WOUND ON RIGHT HIP WITH DRESSING. NO PICTURE IN CHART. WAS UNABLE TO TAKE PICTURE PT IS UNSTABLE AND WAS QUICKLY DESATURATING. WILL CONTINUE TO MONITOR.
[2020-06-11] MEDS: GLUCERNA 1.2 1,000 ML BOTTLE GT PRN (05:36)
[2020-06-11 06:54] LABS: CALCIUM, SERUM 7.2 mg/dL (8.5-10.1); CARBON DIOXIDE 27 mmol/L (21-32); CHLORIDE 110 mmol/L (98-107); CREATININE 0.5 mg/dL (0.6-1.3); GLUCOSE 133 mg/dL (74-106); PHOSPHORUS 3.4 mg/dL (2.5-4.9); POTASSIUM 3.3 mmol/L (3.5-5.1); SODIUM SERUM 146 mmol/L (136-145); UREA NITROGEN, BLOOD 13 mg/dL (7-18)
[2020-06-11 06:55] LABS: BASOPHILS % (AUTO) 0.1 % (0.0-2.0); HEMATOCRIT 30 % (33-45); HEMOGLOBIN 9.6 g/dL (11.5-14.8); LYMPHOCYTES # (AUTO) 1.4 /CMM (0.8-4.8); LYMPHOCYTES % (AUTO) 12.4 % (20.0-44.0); MEAN CORPUSCULAR HGB CONC 33 g/dl (31.0-36.0); MEAN CORPUSCULAR VOLUME 92 fL (82-100); MONOCYTES # (AUTO) 0.2 /CMM (0.1-1.30); MONOCYTES % (AUTO) 1.5 % (2.0-12.0); NEUTROPHILS # (AUTO) 9.6 /CMM (1.8-8.9); PLATELET COUNT (AUTO) 165 /CMM (150-450); RED BLOOD CELL COUNT(AUTO) 3.21 MIL/uL (4.0-5.2); WHITE BLOOD COUNT (AUTO) 11.1 K/uL (4.3-11.0)
--- NOTE | 2020-06-11 08:00 | NUR ---
patient received in bed skin w/d color adqueste on vent foo2 60%ETT 7.7 ac 20 tv 20 tv 450 peep [address] at 20ml /hr residuual 5 ml obtained bui catheter in place with draining well to gravity will continue to assess and evaluate
[2020-06-11] MEDS ORDERED: POTASSIUM CHLORIDE 20 MEQ POWDER PACKET GT ONE (09:30)
[2020-06-11] MEDS: MEROPENEM 500 MG in IV NS 0.9% 50 ML IV SCH ×2 (09:39→22:33)
[2020-06-11] MEDS: DEXAMETHASONE SOD PHOSPHATE 10 MG/ML VIAL IV SCH (09:43)
[2020-06-11] MEDS: ATORVASTATIN 40 MG TABLET GT SCH (09:43)
[2020-06-11] MEDS: CHOLECALCIFEROL 1,000 UNIT TABLET (VIT D3) PO SCH (09:44)
[2020-06-11] MEDS: MULTIVIT W/MINERALS 1 TAB TABLET GT SCH (09:44)
[2020-06-11] MEDS: PROSOURCE / PROSTAT (PYXIS) 30 ML UDC GT SCH ×2 (09:45→17:00)
[2020-06-11] MEDS: ASCORBIC ACID 500 MG TABLET GT SCH (09:45)
[2020-06-11] MEDS: ASPIRIN 81 MG TAB.CHEW GT SCH (09:49)
[2020-06-11] MEDS ORDERED: DEXTROSE 50%-WATER 50 ML DISP.SYRIN IV PRN (12:00)
[2020-06-11] MEDS: VANCOMYCIN HCL 0.75 GM in IV D5W 250 ML IV SCH (17:42)
[2020-06-11] MEDS: INSULIN REGULAR, HUMAN 100 UNIT/ML 3 ML VIAL SQ PRN ×2 (17:45→23:59)
--- NOTE | 2020-06-11 19:40 | NUR ---
RN NOTES RECEIVED [PT. NON-VERBAL , VENT DEPENDENTGTUBE FEEDING RUNNING @ 20ML/HR, F/C DRAINING CLEAR YELLOW URINE, SB ON TLE MONITOR HR-51, NOT IN DISTRESS, NO PAIN NOTED, , SIDERAILSUPX2, CONTINUE TO MONITOR
[2020-06-11] MEDS: PROPOFOL 100 ML IV PRN (20:00)
[2020-06-12] VITALS (24 sets, daily range): BP systolic 60–156; BP diastolic 40–97
[2020-06-12] MEDS: NOREPINEPHRINE 8 MG in IV NS 0.9% 242 ML IV PRN ×3 (02:50→17:42)
[2020-06-12] MEDS: PROPOFOL 100 ML IV PRN ×2 (05:22→15:03)
[2020-06-12] MEDS: BLOOD SUGAR DIAGNOSTIC 1 EACH STRIP IN SCH ×3 (05:23→19:03)
--- NOTE | 2020-06-12 06:30 | NUR ---
RN NOTES PT IS NOT ON DISTRESS, NO PAIN NOTED, MORNING CARE RENDERED, PT. NEEDS ATTENDED
[2020-06-12 07:28] LABS: HEMATOCRIT 36 % (33-45); HEMOGLOBIN 11.8 g/dL (11.5-14.8); LYMPHOCYTES # (AUTO) 1.3 /CMM (0.8-4.8); LYMPHOCYTES % (AUTO) 6.3 % (20.0-44.0); MEAN CORPUSCULAR HGB CONC 33 g/dl (31.0-36.0); MEAN CORPUSCULAR VOLUME 91 fL (82-100); MONOCYTES # (AUTO) 0.2 /CMM (0.1-1.30); NEUTROPHILS # (AUTO) 19.4 /CMM (1.8-8.9); NEUTROPHILS % (AUTO) 92.7 % (43.0-81.0); PLATELET COUNT (AUTO) 223 /CMM (150-450); WHITE BLOOD COUNT (AUTO) 20.9 K/uL (4.3-11.0)
[2020-06-12 07:50] LABS: BILIRUBIN,TOTAL 0.4 mg/dL (0.2-1.0); CREATININE 0.7 mg/dL (0.6-1.3); MAGNESIUM 1.8 mg/dL (1.8-2.4); PHOSPHORUS 3.3 mg/dL (2.5-4.9); TOTAL PROTEIN, SERUM 5.6 g/dL (6.4-8.2)
[2020-06-12 08:00] LABS: ALBUMIN 1.2 g/dL (3.4-5.0)
[2020-06-12] MEDS: MULTIVIT W/MINERALS 1 TAB TABLET GT SCH (10:41)
[2020-06-12] MEDS: ATORVASTATIN 40 MG TABLET GT SCH (10:41)
[2020-06-12] MEDS: ASPIRIN 81 MG TAB.CHEW GT SCH (10:41)
[2020-06-12] MEDS: CHOLECALCIFEROL 1,000 UNIT TABLET (VIT D3) PO SCH (10:41)
[2020-06-12] MEDS: ASCORBIC ACID 500 MG TABLET GT SCH (10:41)
[2020-06-12] MEDS: DEXAMETHASONE SOD PHOSPHATE 10 MG/ML VIAL IV SCH (10:41)
[2020-06-12] MEDS: MEROPENEM 500 MG in IV NS 0.9% 50 ML IV SCH ×2 (10:47→21:07)
[2020-06-12] MEDS: VANCOMYCIN HCL 0.75 GM in IV D5W 250 ML IV SCH (10:47)
[2020-06-12] MEDS: PROSOURCE / PROSTAT (PYXIS) 30 ML UDC GT SCH ×2 (10:49→17:12)
[2020-06-12] MEDS: INSULIN REGULAR, HUMAN 100 UNIT/ML 3 ML VIAL SQ PRN ×2 (13:46→19:11)
--- NOTE | 2020-06-12 20:00 | NUR ---
ICU OV RN NOTE PT IN BED WITH EYES CLOSED. REMAIN ON ETT 7.5/23 CM AT LIPS. TOLERATING VENT SETTINGS WELL. NO DISTRESS OR DISCOMFORT NOTED. NO S/S OF PAIN NOTED. ON TELE SR HR 64. GTF GLUCERNA INFUSING AT 20 ML/HR, 0 ML RESIDAUL NOTED. RT FEMORAL TLC AND STEVE MIDLINE INTACT AND PATENT. LEVO INFUSING AT 0.4 MCG/KG/MIN AND PROPOFOL INFUSING AT 40MCG/KG/MIN. B/P WNL. REPOSITION HER Q2H, KEPT HER DRY AND CLEAN. ALL NEEDS ATTENDED. CONTINUE TO MONITOR HER.
--- NOTE | 2020-06-12 20:10 | NUR ---
ICU OV RN NOTE NOTED PT WITH LOW GRADE FEVER 100. TYLENOL 650 MG VIA GT GIVEN. CONTINUE TO MONITOR HER.
[2020-06-12] MEDS: ACETAMINOPHEN 325 MG TABLET PO PRN (20:13)
[2020-06-13] VITALS (24 sets, daily range): BP systolic 90–159; BP diastolic 48–80
[2020-06-13] MEDS: BLOOD SUGAR DIAGNOSTIC 1 EACH STRIP IN SCH ×4 (00:03→17:52)
[2020-06-13] MEDS: INSULIN REGULAR, HUMAN 100 UNIT/ML 3 ML VIAL SQ PRN ×4 (00:04→18:00)
[2020-06-13] MEDS: PROPOFOL 100 ML IV PRN ×3 (00:15→15:45)
[2020-06-13] MEDS: NOREPINEPHRINE 8 MG in IV NS 0.9% 242 ML IV PRN ×2 (01:32→09:53)
[2020-06-13] MEDS: VANCOMYCIN HCL 0.75 GM in IV D5W 250 ML IV SCH ×2 (02:14→21:07)
[2020-06-13 06:47] LABS: BASOPHILS % (AUTO) 0.1 % (0.0-2.0); HEMATOCRIT 33 % (33-45); HEMOGLOBIN 10.5 g/dL (11.5-14.8); LYMPHOCYTES # (AUTO) 1.4 /CMM (0.8-4.8); LYMPHOCYTES % (AUTO) 9.5 % (20.0-44.0); MEAN CORPUSCULAR HGB CONC 32 g/dl (31.0-36.0); MEAN CORPUSCULAR VOLUME 94 fL (82-100); MONOCYTES # (AUTO) 0.2 /CMM (0.1-1.30); MONOCYTES % (AUTO) 1.4 % (2.0-12.0); NEUTROPHILS # (AUTO) 13.5 /CMM (1.8-8.9); PLATELET COUNT (AUTO) 169 /CMM (150-450); RED BLOOD CELL COUNT(AUTO) 3.47 MIL/uL (4.0-5.2); WHITE BLOOD COUNT (AUTO) 15.2 K/uL (4.3-11.0)
--- NOTE | 2020-06-13 07:30 | NUR ---
ICU OVERFLOW RN NOTES Received patient sedated,in bed, and on ventilator . No sob or distress noted. Patient on Propofol 40 mcg/kg/min and also on Levophed drip 0.4mcg/kg/min. On g tube feeding, placement checked and no residual noted. Head of bed kept elevated for aspiration prevention. Patient's bui cath intact and hanging to gravity with clear yellow urine. Patient will be monitored. Bed in lowest and locked position.
[2020-06-13 07:36] LABS: CALCIUM, SERUM 7.8 mg/dL (8.5-10.1); CREATININE 0.8 mg/dL (0.6-1.3); POTASSIUM 4.3 mmol/L (3.5-5.1)
[2020-06-13] MEDS: ASCORBIC ACID 500 MG TABLET GT SCH (08:30)
[2020-06-13] MEDS: ATORVASTATIN 40 MG TABLET GT SCH (08:30)
[2020-06-13] MEDS: MULTIVIT W/MINERALS 1 TAB TABLET GT SCH (08:30)
[2020-06-13] MEDS: ASPIRIN 81 MG TAB.CHEW GT SCH (08:30)
[2020-06-13] MEDS: DEXAMETHASONE SOD PHOSPHATE 10 MG/ML VIAL IV SCH (08:31)
[2020-06-13] MEDS: CHOLECALCIFEROL 1,000 UNIT TABLET (VIT D3) PO SCH (08:31)
[2020-06-13] MEDS: PROSOURCE / PROSTAT (PYXIS) 30 ML UDC GT SCH ×2 (09:11→17:20)
[2020-06-13] MEDS: MEROPENEM 500 MG in IV NS 0.9% 50 ML IV SCH ×2 (09:11→22:23)
--- NOTE | 2020-06-13 09:45 | NUR ---
ICU OVERFLOW RN NOTES Patient noted with Blood pressure of 176/86 and on Levophed drip rate of 0.4 mcg/kg/min. Dose lowered to 0.3 mcg /kg/min.Will continue to monitor.
--- NOTE | 2020-06-13 10:50 | NUR ---
ICU OVERFLOW RN NOTES Decreased Levophed drip to 0.2 mcg/kg/min due to patient's BP being stable on 0.3mcg/kg/min. Patient is being closely monitored.
--- NOTE | 2020-06-13 15:40 | NUR ---
ICU OVERFLOW RN NOTES Patient's Diprivan decreased to 35 mcg/kg/min from previous dose of 40mcg/kg/min. Patient monitored closely. No distress noted. Patient continues to be sedated.
--- NOTE | 2020-06-13 16:10 | NUR ---
ICU OVERFLOW RN NOTES Patient's levophed drip dose lowered from 0.2 mcg/kg/min to 0.18 mcg/kg/min due to BP being stable. Patient blood pressure stable and will be monitored.
--- NOTE | 2020-06-13 16:40 | NUR ---
ICU OVERFLOW RN NOTES Patient's Levophed drip lowered to 0.16 mcg/kg/min and Diprivan lowered to 30 mcg/kg/min.Patient tolerating well. Patient continues to be sedated. Will continue to monitor.
--- NOTE | 2020-06-13 17:15 | NUR ---
NITROGLYCERIN NEUTRALIZER OVERFLOW NOTES Patient's BP continues to be stable while Levophed being titrated. Levophed further lowered to 0.14mcg/kg/min. Patient will be monitored..
--- NOTE | 2020-06-13 19:29 | NUR ---
ICU OVERFLOW RN CLOSING NOTES Patient continues to be sedated and on Diprovan drip at 30mcg/kg/min and Levophed drip at 0.14 mcg/kg/min. Patient tolerated titrations during shift for both levophed and Diprivan. Head of the bed kept elevated. Gtube feeding running at 20 ml/hour. Patient noted with urine output of 800cc during shift. On aspiration precautions. Bed in lowest and locked position. Report given to oncoming nurse for SEUN.
--- NOTE | 2020-06-13 19:54 | NUR ---
RN OPENING NOTE PATIENT SEDATED AND ON VENTILATOR; TOLERATING SETTINGS WELL; NO S/S OF ACUTE RESPIRATORY DISTRESS; BREATHING IS EVEN AND UNLABORED; CONTINUOUS PULSE OX READING 96%. PATIENT ON LEVOPHED DRIP RUNNING AT 0.14 MCG/KG/MIN AND PROPOFOL DRIP RUNNING AT 30 MCG/KG/MIN. GTUBE FEEDING PRESENT WITH GLUCERNA RUNNING AT 20 ML/HR. AYALA CATH PRESENT AND DRAINING WELL. TELE MONITOR READING NSR, HEART RATE 60. SAFETY MEASURES IN PLACE AND PATIENT'S NEEDS MET. BED LOCKED, HOB ELEVATED, SIDE RAILS UP. WILL CONTINUE TO MONITOR.
[2020-06-14] VITALS (25 sets, daily range): BP systolic 91–140; BP diastolic 44–68
[2020-06-14] MEDS: PROPOFOL 100 ML IV PRN ×2 (00:06→12:00)
[2020-06-14] MEDS: BLOOD SUGAR DIAGNOSTIC 1 EACH STRIP IN SCH ×5 (00:43→23:53)
[2020-06-14] MEDS: INSULIN REGULAR, HUMAN 100 UNIT/ML 3 ML VIAL SQ PRN ×4 (00:45→23:54)
--- NOTE | 2020-06-14 01:40 | NUR ---
RN NOTE CONTINUOUS PULSE OX READING 88-90%. FIO2 INCREASED FROM 60 TO 100 BY RT; PULSE OX READING 100%. WILL CONTINUE TO MONITOR.
--- NOTE | 2020-06-14 03:01 | NUR ---
RT NOTE PT REC'D ORALLY INTUBATED VIA ETT SZ #7.5. ETT CURRENTLY SECURED AT 23CM AT THE LIPLINE. PT ON [facility] VENT ON AC MODE SETTINGS CHARTED. PT SX'F FOR THICK MOD AMT OF YELLOW SECRETIONS. VENT PLUGGED INTO RED OUTLET. AMBU BAG BEDSIDE. ALARMS ARE SET AND AUDIBLE. WILL CONTINUE TO MONITOR CLOSELY Addendum: 06/14/20 at 0302 by ADORE MCCOLLUM RT Amended: Links added.
[2020-06-14] MEDS: ACETAMINOPHEN 325 MG TABLET PO PRN ×2 (03:54→21:57)
--- NOTE | 2020-06-14 03:54 | NUR ---
RN NOTE PATIENT'S TEMP 100.4. ADMINISTERED PRN TYLENOL 650MG VIA GTUBE. COOLING MEASURES INITIATED. WILL CONTINUE TO MONITOR.
[2020-06-14] MEDS: NOREPINEPHRINE 8 MG in IV NS 0.9% 242 ML IV PRN ×2 (04:10→12:35)
[2020-06-14 06:10] LABS: CALCIUM, SERUM 8.1 mg/dL (8.5-10.1); CREATININE 0.7 mg/dL (0.6-1.3); POTASSIUM 3.6 mmol/L (3.5-5.1)
--- NOTE | 2020-06-14 07:07 | NUR ---
RN NOTE PATIENT'S BP: 81/48, HR: 65. LEVOPHED DRIP INCREASED TO 0.15MCG/KG/MIN. WILL CONTINUE TO MONITOR.
--- NOTE | 2020-06-14 07:49 | NUR ---
RN CLOSING NOTES PATIENT TOLERATING VENT SETTINGS WELL; NO S/S OF ACUTE RESPIRATORY DISTRESS; BREATHING IS EVEN AND UNLABORED; CONTINUOUS PULSE OX READING 97%. PATIENT ON LEVOPHED DRIP RUNNING AT 0.15 MCG/KG/MIN AND PROPOFOL DRIP RUNNING AT 30 MCG/KG/MIN. GTUBE FEEDING PRESENT WITH GLUCERNA RUNNING AT 20 ML/HR. AYALA CATH PRESENT AND DRAINING WELL. TELE MONITOR READING NSR. SAFETY MEASURES IN PLACE AND PATIENT'S NEEDS MET. BED LOCKED, HOB ELEVATED, SIDE RAILS UP. ENDORSED TO DAY SHIFT RN PLAN OF CARE. VITAL- BP: 101/43, HR: 67, SPO2: 98
--- NOTE | 2020-06-14 07:51 | NUR ---
SEISMIC SURVEY ASSISTANT OVRER FLOW NOTES PATIENT WITH ETT TO VENT SETTING TOLERATING VENT SETTINGS WELL; NO S/S OF ACUTE RESPIRATORY DISTRESS; BREATHING IS EVEN AND UNLABORED; CONTINUOUS PULSE OX READING 96%. PATIENT ON LEVOPHED DRIP RUNNING AT 0.15 MCG/KG/MIN AND PROPOFOL DRIP RUNNING AT 30 MCG/KG/MIN. GTUBE FEEDING PRESENT WITH GLUCERNA RUNNING AT 20 ML/HR.KEEP HOB ELEVATED AYALA CATH PRESENT AND DRAINING WELL. TELE MONITOR READING NSR. SAFETY MEASURES IN PLACE AND PATIENT'S NEEDS MET. BED LOCKED, HOB ELEVATED, SIDE RAILS UP.WILL MONITOR
[2020-06-14] MEDS: ASCORBIC ACID 500 MG TABLET GT SCH (08:07)
[2020-06-14] MEDS: CHOLECALCIFEROL 1,000 UNIT TABLET (VIT D3) PO SCH (08:07)
[2020-06-14] MEDS: ATORVASTATIN 40 MG TABLET GT SCH (08:07)
[2020-06-14] MEDS: PROSOURCE / PROSTAT (PYXIS) 30 ML UDC GT SCH ×2 (08:07→16:35)
[2020-06-14] MEDS: MULTIVIT W/MINERALS 1 TAB TABLET GT SCH (08:07)
[2020-06-14] MEDS: ASPIRIN 81 MG TAB.CHEW GT SCH (08:07)
[2020-06-14 08:33] LABS: ABG BASE EXCESS 1.2 mmol/L; ABG OXYGEN SATURATION 94.9 % (92.0-98.5); ABG PCO2 28.8 mmHg (35.0-45.0); ABG PH 7.529 (7.350-7.450); ABG PO2 66.6 mmHg (75.0-100.0); AaDO2 473.6 mmHg; COHb 0.3 % (0.5-1.5); MetHb 0.3 % (0.0-1.5); O2Hb 94.3 % (94.0-97.0); PEEP,BG 0 cm H2O; SITE, ABG Right Radial; VT, ABG 450 mL
[2020-06-14] MEDS: MEROPENEM 500 MG in IV NS 0.9% 50 ML IV SCH (09:53)
--- NOTE | 2020-06-14 10:15 | NUR ---
agricultural education teacher overflow note per dr arnold ok to start propofol vocation tv now 400, dr arnold made rounds updated patient condition
[2020-06-14] MEDS: VANCOMYCIN HCL 0.75 GM in IV D5W 250 ML IV SCH (14:14)
--- NOTE | 2020-06-14 14:18 | NUR ---
NOVELTY DIPPER NOTE PER PHARMACY OK TO GIVE [facility] THOUGH WAS DONE ON 06/11
--- NOTE | 2020-06-14 17:18 | NUR ---
ICU OVER FLOW RN NOTE CONT ON PROPOFOL AND LEVOPHED DRIP ORDERED ,WILL MONITOR
[2020-06-14] MEDS: FLUCONAZOLE (100 MG) 100 MG TABLET PO SCH (18:09)
--- NOTE | 2020-06-14 18:50 | NUR ---
agriculture intern note over flow cont on drip on Levophed and propofol drip as ordered, with gtube feeding as ordered, keep hob elevated, will monitor
--- NOTE | 2020-06-14 19:40 | NUR ---
RT Sputum collected, lab called for warehouse picker. Addendum: 06/14/20 at 2026 by RAMAN HOANG RT Amended: Links added.
[2020-06-15] VITALS (24 sets, daily range): BP systolic 90–127; BP diastolic 52–69
[2020-06-15] MEDS: PROPOFOL 100 ML IV PRN ×2 (01:01→15:18)
[2020-06-15] MEDS: ACETAMINOPHEN 325 MG TABLET PO PRN ×2 (04:50→22:26)
[2020-06-15 04:51] LABS: ABG BASE EXCESS -1.2 mmol/L; ABG OXYGEN SATURATION 93.5 % (92.0-98.5); ABG PCO2 31.7 mmHg (35.0-45.0); ABG PO2 64.1 mmHg (75.0-100.0); AaDO2 256.7 mmHg; COHb 0.3 % (0.5-1.5); MetHb 0.3 % (0.0-1.5); O2Hb 92.9 % (94.0-97.0); PEEP,BG 5 cm H2O; SITE, ABG Right Radial; VT, ABG 400 mL
[2020-06-15] MEDS: NOREPINEPHRINE 8 MG in IV NS 0.9% 242 ML IV PRN ×2 (05:08→18:07)
[2020-06-15] MEDS: BLOOD SUGAR DIAGNOSTIC 1 EACH STRIP IN SCH ×4 (06:00→23:55)
[2020-06-15] MEDS: INSULIN REGULAR, HUMAN 100 UNIT/ML 3 ML VIAL SQ PRN ×3 (06:01→23:59)
--- NOTE | 2020-06-15 08:30 | NUR ---
POSTAL SORTING OFFICER OVRER FLOW NOTES PRESENT IN BED, SEDATED, WITH ETT TO VENT SETTING TOLERATING VENT SETTINGS WELL; SPO2 IS 97%, NO DISTRESS NOTED, PATIENT ON LEVOPHED DRIP RUNNING AT 0.2 MCG/KG/MIN AND PROPOFOL DRIP RUNNING AT 30 MCG/KG/MIN. GTUBE FEEDING PRESENT WITH GLUCERNA RUNNING AT 20 ML/HR. TOLERATING WELL, NO RESIDUAL NOTED, KEEP HOB ELEVATED AYALA CATH PRESENT AND DRAINING YELLOW COLOR CLEAN URINE BY GRAVITY TELE MONITOR READING NSR. SAFETY MEASURES IMPLEMENTED, BED LOCKED,IN LOWEST POSITION, HOB ELEVATED, SIDE RAILS UP.WILL CONT TO MONITOR
[2020-06-15] MEDS: ATORVASTATIN 40 MG TABLET GT SCH (09:10)
[2020-06-15] MEDS: FLUCONAZOLE (100 MG) 100 MG TABLET PO SCH (09:10)
[2020-06-15] MEDS: ASPIRIN 81 MG TAB.CHEW GT SCH (09:10)
[2020-06-15] MEDS: ASCORBIC ACID 500 MG TABLET GT SCH (09:10)
[2020-06-15] MEDS: CHOLECALCIFEROL 1,000 UNIT TABLET (VIT D3) PO SCH (09:10)
[2020-06-15] MEDS: PROSOURCE / PROSTAT (PYXIS) 30 ML UDC GT SCH ×2 (09:10→17:33)
[2020-06-15] MEDS: MULTIVIT W/MINERALS 1 TAB TABLET GT SCH (09:10)
--- NOTE | 2020-06-15 09:45 | NUR ---
no sedation vacation due unstable condition
[2020-06-15 12:31] LABS: CALCIUM, SERUM 7.7 mg/dL (8.5-10.1); CREATININE 0.7 mg/dL (0.6-1.3); POTASSIUM 3.7 mmol/L (3.5-5.1)
--- NOTE | 2020-06-15 18:10 | NUR ---
PATIENT'S VENT ALARM IS ON , RR IS 32,SPO2 IS 88% CALLED RT FOR ASSISTANCE
--- NOTE | 2020-06-15 18:55 | NUR ---
CLOSING NOTES REMAINS IN BED, TOLERATING SETTINGS WELL, CONT TO BE ON PROPOFOL AND LEVOPHED DRIPS, WILL ENDORSE TO PM SHIFT RN FOR SEUN
--- NOTE | 2020-06-15 19:00 | NUR ---
RN OPENING NOTE RECEIVED PATIENT IN BED RESTING,ORALLY INTUBATED,SEDATED,ON MECHANICAL VENT SETTING ON ETT AC 20 TV 400 FIO2 80% PEEP 5 O2:88% IV SITE IS ON LEFT UPPER ARM MIDLINE AND RIGHT FEMORAL TRIPLE LUMEN IV SITE INTACT PATENT PT IS ICU OVER FLOW SPO2:88% PATIENT ON LEVOPHED DRIP RUNNING AT 0.2 MCG/KG/MIN AND PROPOFOL DRIP RUNNING AT 35 MCG/KG/MIN. GTUBE FEEDING PRESENT WITH GLUCERNA 1.2 RUNNING AT 20 ML/HR.NO RESIDUAL CHECKED PLACEMENT, IN PLACE CONTINUE TO MONITOR.
--- NOTE | 2020-06-15 19:01 | NUR ---
RN NOTE ON LEVOPHED DRIP RUNNING AT 0.3 MCG/KG/MIN CONTINUE TO MONITOR
--- NOTE | 2020-06-15 22:25 | NUR ---
RN NOTE PATIENT HAD FLFR280.4,ACETAMINOPHEN 325 MG 2 TAB EQUAL 650 GIVEN VIA G-TUBE CONTINUE TO MONITOR.
[2020-06-16] VITALS (28 sets, daily range): BP systolic 79–138; BP diastolic 41–63
--- NOTE | 2020-06-16 00:12 | NUR ---
RN NOTE PATIENT TEMPERATURE IS 99.2 CONTINUE TO MONITOR
[2020-06-16] MEDS: PROPOFOL 100 ML IV PRN ×3 (01:32→22:31)
[2020-06-16] MEDS: NOREPINEPHRINE 8 MG in IV NS 0.9% 242 ML IV PRN ×3 (03:35→21:40)
[2020-06-16 05:13] LABS: ABG BASE EXCESS -0.3 mmol/L; ABG PCO2 35.6 mmHg (35.0-45.0); ABG PH 7.439 (7.350-7.450); AaDO2 282.6 mmHg; COHb 0.3 % (0.5-1.5); MetHb 0.1 % (0.0-1.5); O2Hb 97.6 % (94.0-97.0); PEEP,BG 5 cm H2O; SITE, ABG Left Brachial; VENT MODE, BG AC 20 400 60% +5; VT, ABG 400 mL
[2020-06-16] MEDS: BLOOD SUGAR DIAGNOSTIC 1 EACH STRIP IN SCH ×3 (05:51→17:24)
[2020-06-16] MEDS: INSULIN REGULAR, HUMAN 100 UNIT/ML 3 ML VIAL SQ PRN ×3 (05:55→17:26)
[2020-06-16 06:28] LABS: CALCIUM, SERUM 7.7 mg/dL (8.5-10.1); CARBON DIOXIDE 22 mmol/L (21-32); CHLORIDE 107 mmol/L (98-107); CREATININE 0.7 mg/dL (0.6-1.3); GLUCOSE 184 mg/dL (74-106); SODIUM SERUM 138 mmol/L (136-145); UREA NITROGEN, BLOOD 28 mg/dL (7-18)
--- NOTE | 2020-06-16 06:43 | NUR ---
RN CLOSING NOTE PATIENT REMAINS ON INTUBATED ORALLY ON MECHANICAL VENT SETTING IS 7.5/23 AC 20 TV 400 FIO2:80% PEEP 5 ON PROPOFOL DRIP 35MCG/KG/MIN AND ON LEVOPHED DRIP 0.3MCG/KG/MIN,TOLERATING WELL,ON G-TUBE FEEDING GLUCERNA 1.2 20CC/HR AYALA CATHETER IN PLACE,URINE DRAINING YELLOW AND CLEAR BY GRAVITY,IV SITE IS ON RIGHT FEMORAL AND LEFT UPPER ARM MIDLINE INTACT AND PATENT,ALL DUE MEDS GIVEN MD ORDERED KEPT CLEAN AND DRY ALL THE TIME,KEPT COMFORTABLE,ALL NEEDS MET,ENDORSE NEXT COMING SHIFT FOR CONTINUATION OF CARE.
--- NOTE | 2020-06-16 07:30 | NUR ---
CHILD SPECIALIST OVRER FLOW NOTES RECEIVED PATIENT IN BED, CURRENTLY SEDATED, RESTING ANTONIO, RELAXED, FLACC SCORE 0, WITH ETT TO VENT SETTING TOLERATING VENT SETTINGS WELL; SPO2 IS 99%, NO DISTRESS NOTED, PATIENT ON LEVOPHED DRIP RUNNING AT 0.3 MCG/KG/MIN AND PROPOFOL DRIP RUNNING AT 35 MCG/KG/MIN. GTUBE FEEDING PRESENT WITH GLUCERNA1.2 RUNNING AT 20 ML/HR. TOLERATING WELL, NO RESIDUAL NOTED, KEEP HOB ELEVATED AYALA CATH PRESENT AND DRAINING YELLOW COLOR CLEAN URINE BY GRAVITY TELE MONITOR READING NSR. SAFETY MEASURES IMPLEMENTED, BED LOCKED,IN LOWEST POSITION, HOB ELEVATED, SIDE RAILS UP.WILL CONT TO MONITOR
[2020-06-16] MEDS: CHOLECALCIFEROL 1,000 UNIT TABLET (VIT D3) PO SCH (08:06)
[2020-06-16] MEDS: ASCORBIC ACID 500 MG TABLET GT SCH (08:06)
[2020-06-16] MEDS: GLUCERNA 1.2 1,000 ML BOTTLE GT PRN (08:06)
[2020-06-16] MEDS: MULTIVIT W/MINERALS 1 TAB TABLET GT SCH (08:06)
[2020-06-16] MEDS: ASPIRIN 81 MG TAB.CHEW GT SCH (08:06)
[2020-06-16] MEDS: FLUCONAZOLE (100 MG) 100 MG TABLET PO SCH (08:06)
[2020-06-16] MEDS: ATORVASTATIN 40 MG TABLET GT SCH (08:06)
[2020-06-16] MEDS: PROSOURCE / PROSTAT (PYXIS) 30 ML UDC GT SCH ×2 (08:57→17:24)
--- NOTE | 2020-06-16 09:30 | NUR ---
RN NOTE No sedation vacation due unstable condition
--- NOTE | 2020-06-16 18:46 | NUR ---
RN CLOSING NOTES PATIENT IS STABLE, IN BED, TOLERATING SETTINGS WELL, NO DISTRESS NOTED, RESPIRATIONS EVEN AND UNLABORED, SPO2 S 99%, AT THIS MOMENT, SINUS RHYTHM, TOLERATING DRIPS WELL, ADJUSTED DURING THE DAY TO MAINTAIN STABLE BP AND SEDATION LEVEL. COMFORT NEEDS ATTENDED, SAFETY MEASURES IN PLACE, WILL ENDORSE TO PM SHIFT RN FOR SEUN
--- NOTE | 2020-06-16 19:38 | NUR ---
STAFF SOFTWARE ENGINEER NOTE RECEIVED PATIENT IN BED WITH HOB ELEVATED, CURRENTLY SEDATED ON DIPRIVAN 35 MCG/KG/MIN,TOLERATING CURRENT VENT SETTINGS. NO DISTRESS NOTED. PATIENT ON LEVOPHED RUNNING AT 0.3 MCG/KG/MIN. G-TUBE FEEDING GLUCERNA 1.2 RUNNING AT 20 ML/HR. TOLERATING WELL, NO RESIDUAL NOTED. AYALA CATH PRESENT AND DRAINING YELLOW COLOR URINE BY GRAVITY. ON TELE MONITOR READING NSR. SAFETY MEASURES IMPLEMENTED, BED LOCKED AND IN THE LOWEST POSITION, SIDE RAILS UP X 2 WILL CONT. TO MONITOR PT.
[2020-06-16] MEDS: MICAFUNGIN SODIUM 100 MG in IV NS 0.9% 100 ML IV SCH (21:29)
[2020-06-17] VITALS (23 sets, daily range): BP systolic 90–127; BP diastolic 51–65
[2020-06-17] MEDS: BLOOD SUGAR DIAGNOSTIC 1 EACH STRIP IN SCH ×5 (00:06→23:11)
[2020-06-17] MEDS: INSULIN REGULAR, HUMAN 100 UNIT/ML 3 ML VIAL SQ PRN ×4 (00:22→23:10)
[2020-06-17 04:22] LABS: ABG BASE EXCESS -1.3 mmol/L; ABG OXYGEN SATURATION 94.9 % (92.0-98.5); ABG PCO2 36.4 mmHg (35.0-45.0); ABG PH 7.418 (7.350-7.450); ABG PO2 74.9 mmHg (75.0-100.0); AaDO2 312.9 mmHg; COHb 0.2 % (0.5-1.5); MetHb 0.3 % (0.0-1.5); O2Hb 94.4 % (94.0-97.0); PEEP,BG 5 cm H2O; SITE, ABG Left Radial; VENT MODE, BG AC 60%; VT, ABG 400 mL
[2020-06-17] MEDS ORDERED: NOREPINEPHRINE 4 MG/4 ML AMPUL IV ONE (05:03)
[2020-06-17] MEDS: NOREPINEPHRINE 8 MG in IV NS 0.9% 242 ML IV PRN ×3 (05:31→18:42)
--- NOTE | 2020-06-17 07:30 | NUR ---
KILN FEEDER OVER FLOW NOTES PATIENT PRESENT IN BED, SEDATED, RESTING ANTONIO, RELAXED, FLACC SCORE 0, TOLERATING VENT SETTINGS WELL; SPO2 IS 95%, NO DISTRESS NOTED, RESPIRATIONS EVEN AND UNLABORED, PATIENT ON LEVOPHED AT 0.3 MCG/KG/MIN AND PROPOFOL DRIP RUNNING AT 35 MCG/KG/MIN. G-TUBE FEEDING PRESENT WITH GLUCERNA1.2 RUNNING AT 20 ML/HR. TOLERATING WELL, NO RESIDUAL NOTED, KEEP HOB ELEVATED AYALA CATH IN PLACE DRAINING YELLOW CLEAN URINE BY GRAVITY ; TELE MONITOR READING NSR/NST. SAFETY MEASURES IMPLEMENTED, BED LOCKED,IN LOWEST POSITION, HOB ELEVATED, SIDE RAILS UP.WILL CONT TO MONITOR
[2020-06-17 08:12] LABS: CALCIUM, SERUM 7.6 mg/dL (8.5-10.1); CREATININE 0.6 mg/dL (0.6-1.3); POTASSIUM 4.1 mmol/L (3.5-5.1)
[2020-06-17] MEDS: MULTIVIT W/MINERALS 1 TAB TABLET GT SCH (08:35)
[2020-06-17] MEDS: ASPIRIN 81 MG TAB.CHEW GT SCH (08:35)
[2020-06-17] MEDS: ASCORBIC ACID 500 MG TABLET GT SCH (08:35)
[2020-06-17] MEDS: CHOLECALCIFEROL 1,000 UNIT TABLET (VIT D3) PO SCH (08:35)
[2020-06-17] MEDS: ATORVASTATIN 40 MG TABLET GT SCH (08:35)
[2020-06-17] MEDS: PROSOURCE / PROSTAT (PYXIS) 30 ML UDC GT SCH ×2 (08:36→17:43)
[2020-06-17] MEDS: GLUCERNA 1.2 1,000 ML BOTTLE GT PRN (08:55)
[2020-06-17] MEDS: PROPOFOL 100 ML IV PRN ×2 (08:59→17:44)
--- NOTE | 2020-06-17 09:00 | NUR ---
Patient is not tolerating well repositioning, SPO2 is dropping to 70%, unstable HR, no sedation vacation due unstable status
--- NOTE | 2020-06-17 12:34 | NUR ---
Fever 99.8 noted, will administer PRN Tylenol
[2020-06-17] MEDS: ACETAMINOPHEN 325 MG TABLET PO PRN (12:35)
--- NOTE | 2020-06-17 19:45 | NUR ---
ICU OVERFLOW/RN THE PATIENT IS RECEIVED IN BED. PATIENT VENT TRACH AND TOLERATES VENT SETTINGS WELL. RESPIRATION IS REGULAR AND UNLABORED. PATIENT IS SEDATED. PATIENT IS PROPOFOL DRIP AT 35 MCG/KH/MIN AND NO ADVERSE SIDE EFFECTS NOTED. FLACC SCORE IS 0.NOREPI INFUSING AT 0.3 MCG/KG/MIN AND NO ADVERSE SIDE EFFECTS NOTED. GT FEEDING GLUCERNA 1.2 INFUSING AT 20ML/HR. NO RESIDUAL NOTED. ABDOMEN IS SOFT AND NON-DISTENDED. AYALA CATH IS PRESENT AND NOTED CLEAR, YELLOW COLOR URINE. NO BLADDER DISTENSION NOTED. TELE BOX READING IS SR 89. BED LOW AND LOCKED. SIDE RAILS UP X3. CALL LIGHT WITHIN REACH. WILL CONTINUE TO MONITOR.
[2020-06-17] MEDS: MICAFUNGIN SODIUM 100 MG in IV NS 0.9% 100 ML IV SCH (21:59)
--- NOTE | 2020-06-17 22:56 | NUR ---
ICU OVERFLOW/RN CLOSING NOTE PATIENT VENT TRACH, TOLERATES VENT SETTINGS WELL. RESPIRATION IS REGULAR AND UNLABORED. PATIENT IS SEDATED. PROPOFOL DRIP AT 35 MCG/HR/MIN, NOREPI INFUSING AT 0.3 MCG/KG/MIN AND NO ADVERSE SIDE EFFECTS NOTED. GT FEEDING GLUCERNA 1.2 INFUSING AT 20ML/HR. NO RESIDUAL NOTED. ABDOMEN IS SOFT AND NON-DISTENDED. AYALA CATH IS PRESENT AND NOTED CLEAR, YELLOW COLOR URINE. NO BLADDER DISTENSION NOTED. TELE BOX READING IS SR 80. BED LOW AND LOCKED. SIDE RAILS UP X3. CALL LIGHT WITHIN REACH. ENDORSEMENT GIVEN TO RN MAE.
[2020-06-18] VITALS (23 sets, daily range): BP systolic 97–136; BP diastolic 50–78
[2020-06-18] MEDS: NOREPINEPHRINE 8 MG in IV NS 0.9% 242 ML IV PRN ×2 (04:02→10:09)
[2020-06-18] MEDS: PROPOFOL 100 ML IV PRN ×4 (04:02→20:58)
--- NOTE | 2020-06-18 04:55 | NUR ---
PT SPO2 IS ON 89-90% RT INCREASE FIO2 TO 80% AND THE SPO2 GOES UP TO 94% WILL CONT TO MONITOR THE PT
[2020-06-18] MEDS: BLOOD SUGAR DIAGNOSTIC 1 EACH STRIP IN SCH ×4 (05:26→23:54)
[2020-06-18 05:29] LABS: ABG OXYGEN SATURATION 95.4 % (92.0-98.5); ABG PCO2 31.6 mmHg (35.0-45.0); ABG PH 7.433 (7.350-7.450); ABG PO2 77.8 mmHg (75.0-100.0); AaDO2 459.4 mmHg; COHb 0.2 % (0.5-1.5); MetHb 0.3 % (0.0-1.5); O2Hb 94.9 % (94.0-97.0); PEEP,BG 5 cm H2O; SITE, ABG Right Radial; VT, ABG 400 mL
[2020-06-18] MEDS: INSULIN REGULAR, HUMAN 100 UNIT/ML 3 ML VIAL SQ PRN ×2 (06:14→12:01)
--- NOTE | 2020-06-18 06:50 | NUR ---
PT ON BED STILL ON ETT/VENT SETTING PER MD FIO2 80% SPO2 94-96% STILL SEDATED WITH DIPRIVAN @ 45MCG/KG/MIN ALSO ON LEVOPHED @ 0.3 MCG/KG/MIN WITH LATEST BP OF 119/62 BEDSIDE DROPLET ISOLATION MAINTAINED BED ON LOWEST POSITION AND LOCKED SIDE RAILS UP X2 ALL NEEDS ATTENDED WILL ENDORSED TO AM SHIFT NURSE
[2020-06-18 08:00] LABS: CALCIUM, SERUM 7.8 mg/dL (8.5-10.1); CREATININE 0.6 mg/dL (0.6-1.3); POTASSIUM 4.2 mmol/L (3.5-5.1)
--- NOTE | 2020-06-18 08:00 | NUR ---
PATIENT RECEIVED IN BED ON PRESCRIBED VENT SETTINGS ETT 7.5/, AC 20, TV 400, FIO2 80%, PEEP 5. PATIENT IS SEDATED ON 45 MG/KG/MIN PROPOFOL. MONITOR SHOW SINUS RHYTHM. AYALA DRAINING CLEAR YELLOW URINE. BEDREST WITH PERINEAL REDNESS. NG TUBE RUNNING GLUCERNA 20 ML/HR WITH 50 ML RESIDUAL. LEFT UPPER MIDLINE IN TACT. RIGHT FEMORAL PICC RUNNING PROPOFOL AND LEVO RUNNING 0.3 MCG/MIN. BED LOCKED LOWEST POSITION, THREE GUARD RAILS RAISED, CALL LAZARO WITHIN REACH, ALL SAFETY MEASURES WERE IN PLACE. WILL CONTINUE TO MONITOR.
[2020-06-18] MEDS: ASPIRIN 81 MG TAB.CHEW GT SCH (09:16)
[2020-06-18] MEDS: MULTIVIT W/MINERALS 1 TAB TABLET GT SCH (09:17)
[2020-06-18] MEDS: CHOLECALCIFEROL 1,000 UNIT TABLET (VIT D3) PO SCH (09:17)
[2020-06-18] MEDS: ASCORBIC ACID 500 MG TABLET GT SCH (09:17)
[2020-06-18] MEDS: PROSOURCE / PROSTAT (PYXIS) 30 ML UDC GT SCH ×2 (09:17→17:52)
[2020-06-18] MEDS: ATORVASTATIN 40 MG TABLET GT SCH (09:17)
[2020-06-18 11:53] LABS: BASOPHILS # (AUTO) 0.1 /CMM (0.0-0.2); BASOPHILS % (AUTO) 0.5 % (0.0-2.0); EOSINOPHILS % (AUTO) 0.1 % (0.0-6.0); HEMATOCRIT 26 % (33-45); HEMOGLOBIN 8.1 g/dL (11.5-14.8); LYMPHOCYTES # (AUTO) 0.8 /CMM (0.8-4.8); LYMPHOCYTES % (AUTO) 6.1 % (20.0-44.0); MEAN CORPUSCULAR HGB CONC 32 g/dl (31.0-36.0); MEAN CORPUSCULAR VOLUME 93 fL (82-100); MONOCYTES # (AUTO) 0.2 /CMM (0.1-1.30); NEUTROPHILS # (AUTO) 11.5 /CMM (1.8-8.9); NEUTROPHILS % (AUTO) 91.3 % (43.0-81.0); PLATELET COUNT (AUTO) 188 /CMM (150-450); RED BLOOD CELL COUNT(AUTO) 2.76 MIL/uL (4.0-5.2); WHITE BLOOD COUNT (AUTO) 12.6 K/uL (4.3-11.0)
[2020-06-18] MEDS: GLUCERNA 1.2 1,000 ML BOTTLE GT PRN (18:09)
--- NOTE | 2020-06-18 19:18 | NUR ---
PATIENT IN BED ON PRESCRIBED VENT SETTINGS ETT 7.5/23, AC 20, TV 400, FIO2 80%, PEEP 5. PATIENT IS SEDATED ON 45 MG/KG/MIN PROPOFOL. MONITOR SHOW SINUS RHYTHM. AYALA DRAINING CLEAR YELLOW URINE. BEDREST WITH PERINEAL REDNESS. NG TUBE RUNNING GLUCERNA 20 ML/HR WITH 50 ML RESIDUAL. LEFT UPPER MIDLINE IN TACT. RIGHT FEMORAL PICC RUNNING PROPOFOL AND LEVO RUNNING 0.2 MCG/MIN. BED LOCKED LOWEST POSITION, THREE GUARD RAILS RAISED, CALL LAZARO WITHIN REACH, ALL SAFETY MEASURES WERE IN PLACE. ENDORSED INFORMATION TO SUPERVISOR EXTRUSION NURSE SERGEI.
--- NOTE | 2020-06-18 19:30 | NUR ---
[facility] [employer] OVERFLOW NOTES RECEIVED PATIENT IN BED ON PRESCRIBED VENT SETTINGS ETT 7.5/23, AC 20, TV 400, FIO2 80%, PEEP 5. PATIENT IS SEDATED ON 45 MG/KG/MIN PROPOFOL. MONITOR SHOW SINUS RHYTHM. AYALA IN PLACE DRAINING CLEAR YELLOW URINE. PATIENT G TUBE RUNNING GLUCERNA 20 ML/HR. LEFT UPPER MIDLINE IN TACT AND RIGHT FEMORAL PICC RUNNING PROPOFOL AND LEVO RUNNING 0.2 MCG/MIN. SAFETY MEASURES ARE IN PLACE, BED IS LOCKED LOCKED AND PLACED IN THE LOW POSITION SIDE RAILS UP X 3, CALL LIGHT WITH IN REACH, ,WILL CONTINUE TO MONITOR.
--- NOTE | 2020-06-18 21:00 | NUR ---
[facility] [employer] OVERFLOW NOTES DIPRIVAN STARTED AT 2100 HRS DOSE RATE 45MCG/KG/MIN
[2020-06-18] MEDS: MICAFUNGIN SODIUM 100 MG in IV NS 0.9% 100 ML IV SCH (21:39)
[2020-06-19] VITALS (24 sets, daily range): BP systolic 90–139; BP diastolic 47–104
[2020-06-19] MEDS: NOREPINEPHRINE 8 MG in IV NS 0.9% 242 ML IV PRN ×2 (00:29→17:24)
--- NOTE | 2020-06-19 05:41 | NUR ---
PATIENT RECEIVED WITH ETT 7.5 @ 23 cm AND VENT SETTINGS OF AC 20, 400 Vt, 80%, +5, TOLERATING WITH NO DISTRESS/SOB NOTED. SUCTIONED FOR MINIMAL, THICK, WHITE SECRETIONS. AMBU BAG AT BEDSIDE. VENT ALARM AUDIBLE AND VISIBLE. VENT PLUGGED INTO RED OUTLET. Addendum: 06/19/20 at 0543 by MIMA PARRA RT Amended: Links added.
[2020-06-19] MEDS: BLOOD SUGAR DIAGNOSTIC 1 EACH STRIP IN SCH ×3 (06:00→17:53)
[2020-06-19] MEDS: PROPOFOL 100 ML IV PRN ×3 (06:26→19:32)
--- NOTE | 2020-06-19 07:00 | NUR ---
OIL AND GAS LEASE PUMPER OVERFLOW CLOSING NOTES PATIENT IN BED ON PRESCRIBED VENT SETTINGS ETT 7.5/23, AC 20, TV 400, FIO2 80%, PEEP 5. PATIENT IS SEDATED ON 45 MG/KG/MIN PROPOFOL. AYALA IN PLACE. PATIENT G TUBE RUNNING GLUCERNA 20 ML/HR. LEFT UPPER MIDLINE IN TACT AND RIGHT FEMORAL PICC RUNNING PROPOFOL AND LEVO. ALL PATIENT NEEDS MET DURING SHIFT. SAFETY MEASURES ARE IN PLACE, BED IS LOCKED LOCKED AND PLACED IN THE LOW POSITION SIDE RAILS UP X 3, CALL LIGHT WITH IN REACH. WILL ENDORSE CARE TO DAY SHIFT NURSE.
[2020-06-19 07:07] LABS: CALCIUM, SERUM 7.9 mg/dL (8.5-10.1); CREATININE 0.6 mg/dL (0.6-1.3); POTASSIUM 4.6 mmol/L (3.5-5.1)
--- NOTE | 2020-06-19 07:58 | NUR ---
TOOLMAKER HELPER NOTES RECEIVED PATIENT IN BED ON VENT SETTINGS ETT 7.5/23, AC 20, TV 400, FIO2 80%, PEEP 5. TOLERATING VENT SETTINGS WELL. PATIENT IS SEDATED ON 45 MG/KG/MIN PROPOFOL. MONITOR SHOW SINUS RHYTHM. AYALA IN PLACE DRAINING CLEAR YELLOW URINE. PATIENT G TUBE RUNNING GLUCERNA 20 ML/HR. LEFT UPPER MIDLINE IN TACT AND RIGHT FEMORAL PICC RUNNING PROPOFOL AND LEVO RUNNING 0.2 MCG/MIN. SAFETY MEASURES ARE IN PLACE, BED IS LOCKED LOCKED AND PLACED IN THE LOW POSITION SIDE RAILS UP X 3, CALL LIGHT WITH IN REACH, ,WILL CONTINUE TO MONITOR. Addendum: 06/19/20 at 1744 by KRISTEN PIÑA RN TOOLMAKER HELPER NOTES RECEIVED PATIENT IN BED ON VENT SETTINGS ETT 7.5/23, AC 20, TV 400, FIO2 80%, PEEP 5. TOLERATING VENT SETTINGS WELL. PATIENT IS SEDATED ON 45 MCG/KG/MIN PROPOFOL. MONITOR SHOW SINUS RHYTHM. AYALA IN PLACE DRAINING CLEAR YELLOW URINE. PATIENT G TUBE RUNNING GLUCERNA 20 ML/HR. LEFT UPPER MIDLINE IN TACT AND RIGHT FEMORAL PICC RUNNING PROPOFOL AND LEVO RUNNING 0.2 MCG/MIN. SAFETY MEASURES ARE IN PLACE, BED IS LOCKED LOCKED AND PLACED IN THE LOW POSITION SIDE RAILS UP X 3, CALL LIGHT WITH IN REACH, ,WILL CONTINUE TO MONITOR.
[2020-06-19] MEDS: CHOLECALCIFEROL 1,000 UNIT TABLET (VIT D3) PO SCH (08:29)
[2020-06-19] MEDS: ASPIRIN 81 MG TAB.CHEW GT SCH (08:29)
[2020-06-19] MEDS: MULTIVIT W/MINERALS 1 TAB TABLET GT SCH (08:29)
[2020-06-19] MEDS: ASCORBIC ACID 500 MG TABLET GT SCH (08:29)
[2020-06-19] MEDS: ATORVASTATIN 40 MG TABLET GT SCH (08:29)
[2020-06-19] MEDS: PROSOURCE / PROSTAT (PYXIS) 30 ML UDC GT SCH ×2 (09:04→17:25)
[2020-06-19] MEDS: INSULIN REGULAR, HUMAN 100 UNIT/ML 3 ML VIAL SQ PRN (11:57)
--- NOTE | 2020-06-19 17:00 | NUR ---
RN NOTE PATIENT PROPOFOL INCREASED TO 50 MCG/KG/MIN DUE TO PATIENT BECOMING IRRITABLE AND FIGHTING VENT.
--- NOTE | 2020-06-19 17:55 | NUR ---
RN NOTE PATIENT BLOOD SUGAR IS 124. NO INSULIN COVERAGE NEEDED PER PROTOCOL.
--- NOTE | 2020-06-19 18:00 | NUR ---
RN NOTE PATIENT PROPOFOL INCREASED TO 55 MCG/KG/MIN DUE TO PATIENT BECOMING IRRITABLE AND FIGHTING VENT.
--- NOTE | 2020-06-19 18:38 | NUR ---
ELECTRONIC EQUIPMENT TRADES WORKER CLOSING NOTES RECEIVED PATIENT IN BED ON VENT SETTINGS, TOLERATING VENT SETTINGS WELL. RT DELORIS LOOKED OVER SETTINGS AND STATES PATIENT IS STABLE, RECOMMENDING ABGS DUE TO PATIENT DESATING TO 85% SPO2 AT TIMES ON 100% O2 VENT. CURRENT SPO2 SHOWS 93% SPO2. INFORMED ERASTO BANERJEE. ABGS ORDERED. PATIENT IS SEDATED ON 55 MCG/KG/MIN PROPOFOL. MONITOR SHOW SINUS RHYTHM. AYALA IN PLACE DRAINING CLEAR YELLOW URINE. PATIENT G TUBE RUNNING GLUCERNA 20 ML/HR. LEFT UPPER MIDLINE IN TACT AND RIGHT FEMORAL PICC RUNNING PROPOFOL AND LEVO RUNNING 0.2 MCG/KG/MIN. PATIENT KEPT CLEAN, DRY, AND COMFORTABLE THROUGHOUT SHIFT. SAFETY MEASURES ARE IN PLACE, BED IS LOCKED LOCKED AND PLACED IN THE LOW POSITION SIDE RAILS UP X 3, CALL LIGHT WITH IN REACH. WILL ENDORSE CARE TO PM SHIFT FOR SEUN.
[2020-06-19 18:46] LABS: ABG BASE EXCESS -3.5 mmol/L; ABG OXYGEN SATURATION 97.6 % (92.0-98.5); ABG PCO2 27.3 mmHg (35.0-45.0); ABG PH 7.472 (7.350-7.450); ABG PO2 94.6 mmHg (75.0-100.0); AaDO2 591.1 mmHg; COHb 0.5 % (0.5-1.5); MetHb 0.1 % (0.0-1.5); SITE, ABG Right Radial; VENT MODE, BG AC 20 400 100% +5
--- NOTE | 2020-06-19 18:59 | NUR ---
RN NOTE ABG LEVELS RESULTED. PER DELORIS RT NO SIGNIFICANT RESULTS. SPO2 IS 97%, TOLERATING VENT SETTINGS WELL. ENDORSED CARE TO LEAD PHP DEVELOPER RN FOR SEUN.
--- NOTE | 2020-06-19 20:00 | NUR ---
SAW TAILER NOTES RECEIVED PATIENT IN BED ON VENT SETTINGS, TOLERATING VENT SETTINGS WELL. CURRENT SPO2 SHOWS 92% SPO2. ON MONITOR PTS ON SR 114 PATIENT IS SEDATED ON 55 MCG/KG/MIN PROPOFOL. AYALA IN PLACE DRAINING CLEAR YELLOW URINE. PATIENT G TUBE RUNNING GLUCERNA 20 ML/HR. LEFT UPPER MIDLINE IN TACT AND RIGHT FEMORAL PICC RUNNING PROPOFOL AND LEVO RUNNING 0.2 MCG/KG/MIN. PATIENT KEPT CLEAN, DRY, AND COMFORTABLE THROUGHOUT SHIFT. SAFETY MEASURES ARE IN PLACE, BED IS LOCKED LOCKED AND PLACED IN THE LOW POSITION SIDE RAILS UP X 3, CALL LIGHT WITH IN REACH.ALL DUE MEDS GIVEN ORDERED V/S STABLE AFEBRILE WILL CONTINUE TO MONITOR .
[2020-06-19] MEDS: MICAFUNGIN SODIUM 100 MG in IV NS 0.9% 100 ML IV SCH (21:02)
[2020-06-20] VITALS (24 sets, daily range): BP systolic 86–114; BP diastolic 49–65
[2020-06-20] MEDS: INSULIN REGULAR, HUMAN 100 UNIT/ML 3 ML VIAL SQ PRN ×2 (00:43→06:33)
[2020-06-20] MEDS: BLOOD SUGAR DIAGNOSTIC 1 EACH STRIP IN SCH ×4 (00:44→18:00)
--- NOTE | 2020-06-20 00:52 | NUR ---
PRISM MEASURER NOTES BLOOD SUGAR FOR 12MN IS 135 =2 UNITS OF REGULAR INSULIN GIVEN PER SLIDING SCALE WILL CHECK BLOOD SUGAR AGAIN IN AM .
[2020-06-20] MEDS: PROPOFOL 100 ML IV PRN ×4 (03:14→20:29)
--- NOTE | 2020-06-20 06:00 | NUR ---
research agricultural engineer notes blood sugar for 6an is 125 no coverage per sliding scale .
--- NOTE | 2020-06-20 07:03 | NUR ---
precision agriculture specialist notes pts remains in bed on ventilator dependent sedated , will endorse to rn day shift for continuity of care.
--- NOTE | 2020-06-20 07:30 | NUR ---
AZURE ARCHITECT OVERFLOW PATIENT IN BED, NO S/S OF DISTRESS, INTUBATION IN PLACE GTT 7.5/23, AC 20, TV 400, FIOZ 220%, PEEP 5, SEDATION SCORE OF 3, TEL MONITOR IN PLACE SINUS RHYTHM, EDEMA BILATERAL EXTERMITIES NON PITTING, AYALA IN PLACE DRAINING CLEAR YELLOW URINE, FEEDING RUNNING IN THE NG TUBE AT 20ML/HR TOLERATING WELL NO RESIDUAL PLACEMENT VERIFIED, R UA MIDLINE, L FEMORAL TRIPLE LUMEN, INTACT CLEAN DRY FLUSHES EASILY, PROPOFOL RUNNIING AT 55MGC/KG/MIN, LEVOPHED RUNNING AT 0.2MCG/MIN, TOLERATING WELL, BED IN LOWEST LOCKED POSITION, SAFETY MEASURES IN PLACE, BED ALARM ON, WILL CONTINUE TO MONITOR.
[2020-06-20 07:59] LABS: ABG BASE EXCESS -3.3 mmol/L; ABG OXYGEN SATURATION 96.5 % (92.0-98.5); ABG PCO2 41.8 mmHg (35.0-45.0); ABG PH 7.343 (7.350-7.450); ABG PO2 89.9 mmHg (75.0-100.0); AaDO2 581.3 mmHg; COHb 0.3 % (0.5-1.5); MetHb 0.1 % (0.0-1.5); O2Hb 96.1 % (94.0-97.0); SITE, ABG Right Radial; VENT MODE, BG AC 20 400 100% +5
[2020-06-20] MEDS: MULTIVIT W/MINERALS 1 TAB TABLET GT SCH (08:06)
[2020-06-20] MEDS: CHOLECALCIFEROL 1,000 UNIT TABLET (VIT D3) PO SCH (08:06)
[2020-06-20] MEDS: ASCORBIC ACID 500 MG TABLET GT SCH (08:06)
[2020-06-20] MEDS: PROSOURCE / PROSTAT (PYXIS) 30 ML UDC GT SCH ×2 (08:07→18:03)
[2020-06-20] MEDS: ASPIRIN 81 MG TAB.CHEW GT SCH (08:07)
[2020-06-20] MEDS: ATORVASTATIN 40 MG TABLET GT SCH (08:07)
--- NOTE | 2020-06-20 10:00 | NUR ---
ANODIZER OVERFLOW FEEDING RUNNING AT 30ML/HR, NO RESIDUAL, TOLERATING WELL, CLEANED PATIENT, NO S/S OF DISTRESS WILL CONTINUE TO MONITOR.
[2020-06-20] MEDS: NOREPINEPHRINE 8 MG in IV NS 0.9% 242 ML IV PRN ×2 (10:30→22:20)
--- NOTE | 2020-06-20 14:00 | NUR ---
EXTENSION SUPERVISOR OVERFLOW CLEANED PATIENT, NO BM, CHANGED DRESSINGS, O2 SAT DROPPED TO 82%,CALLED RT, BACK UP TO 91% NOW
[2020-06-20] MEDS: ENOXAPARIN SODIUM 40 MG/0.4 ML DISP.SYRIN SQ SCH ×2 (15:22→20:33)
--- NOTE | 2020-06-20 19:30 | NUR ---
ACCESS SPEC OVERFLOW PATIENT IN BED, NO S/S OF DISTRESS, INTUBATION IN PLACE, SEDATION SCORE OF 3, TEL MONITOR IN PLACE SINUS RHYTHM, EDEMA BILATERAL EXTREMITIES NON PITTING, AYALA IN PLACE DRAINING CLEAR YELLOW URINE, FEEDING RUNNING IN THE NG TUBE AT 20ML/HR TOLERATING WELL NO RESIDUAL PLACEMENT VERIFIED, R UA MIDLINE, L FEMORAL TRIPLE LUMEN, INTACT CLEAN DRY FLUSHES EASILY, PROPOFOL RUNNIING AT 55MGC/KG/MIN, LEVOPHED RUNNING AT 0.2MCG/MIN, TOLERATING WELL, BED IN LOWEST LOCKED POSITION, SAFETY MEASURES IN PLACE, BED ALARM ON.
[2020-06-20] MEDS: MICAFUNGIN SODIUM 100 MG in IV NS 0.9% 100 ML IV SCH (20:31)
[2020-06-20] MEDS ORDERED: NOREPINEPHRINE 4 MG/4 ML AMPUL IV ONE (21:49)
[2020-06-21] VITALS (27 sets, daily range): BP systolic 79–112; BP diastolic 43–61
[2020-06-21] MEDS: BLOOD SUGAR DIAGNOSTIC 1 EACH STRIP IN SCH ×4 (00:31→18:12)
[2020-06-21] MEDS: GLUCERNA 1.2 1,000 ML BOTTLE GT PRN (02:52)
[2020-06-21] MEDS: PROPOFOL 100 ML IV PRN ×4 (03:23→20:30)
[2020-06-21] MEDS: INSULIN REGULAR, HUMAN 100 UNIT/ML 3 ML VIAL SQ PRN ×2 (05:20→12:41)
[2020-06-21 05:43] LABS: ABG OXYGEN SATURATION 89.4 % (92.0-98.5); ABG PCO2 33.6 mmHg (35.0-45.0); ABG PH 7.381 (7.350-7.450); ABG PO2 57.8 mmHg (75.0-100.0); AaDO2 477.3 mmHg; COHb 0.3 % (0.5-1.5); MetHb 0.3 % (0.0-1.5); O2Hb 88.9 % (94.0-97.0); SITE, ABG Right Radial; VENT MODE, BG AC 20 400 +5 80%
--- NOTE | 2020-06-21 06:27 | NUR ---
ICU-OF/ROLL SHOP SUPERVISOR RT INCREASED PTS FIO2 80%. Addendum: 06/21/20 at 0628 by OWEN BALL LVN RT INCREASED PTS FIO2 90%.
--- NOTE | 2020-06-21 07:30 | NUR ---
ONLINE PROJECT MANAGER OVERFLOW PATIENT IN BED, NO S/S OF DISTRESS, INTUBATION IN PLACE ETT 7.5, AC 20, TV 400, FIO2 90%, PEEP 5,, SEDATION SCORE OF 3, TEL MONITOR IN PLACE SINUS RHYTHM, EDEMA BILATERAL EXTREMITIES NON PITTING, AYALA IN PLACE DRAINING CLEAR YELLOW URINE, FEEDING RUNNING IN THE NG TUBE AT 20ML/HR TOLERATING WELL NO RESIDUAL PLACEMENT VERIFIED, R UA MIDLINE, L FEMORAL TRIPLE LUMEN, INTACT CLEAN DRY FLUSHES EASILY, PROPOFOL RUNNIING AT 55MGC/KG/MIN, LEVOPHED RUNNING AT 0.18MCG/MIN, DA FROM ICU IS TRYING TO WEAN PATIENT OFF LEVO, TOLERATING WELL, BED IN LOWEST LOCKED POSITION, SAFETY MEASURES IN PLACE, BED ALARM ON.
[2020-06-21] MEDS: CHOLECALCIFEROL 1,000 UNIT TABLET (VIT D3) PO SCH (09:24)
[2020-06-21] MEDS: ASPIRIN 81 MG TAB.CHEW GT SCH (09:24)
[2020-06-21] MEDS: ATORVASTATIN 40 MG TABLET GT SCH (09:24)
[2020-06-21] MEDS: PROSOURCE / PROSTAT (PYXIS) 30 ML UDC GT SCH ×2 (09:24→17:59)
[2020-06-21] MEDS: ASCORBIC ACID 500 MG TABLET GT SCH (09:24)
[2020-06-21] MEDS: MULTIVIT W/MINERALS 1 TAB TABLET GT SCH (09:24)
[2020-06-21] MEDS: ENOXAPARIN SODIUM 40 MG/0.4 ML DISP.SYRIN SQ SCH (09:26)
[2020-06-21 09:34] LABS: BASOPHILS % (AUTO) 0.2 % (0.0-2.0); EOSINOPHILS % (AUTO) 0.1 % (0.0-6.0); HEMATOCRIT 21 % (33-45); LYMPHOCYTES # (AUTO) 1.1 /CMM (0.8-4.8); LYMPHOCYTES % (AUTO) 5.9 % (20.0-44.0); MEAN CORPUSCULAR HGB CONC 32 g/dl (31.0-36.0); MEAN CORPUSCULAR VOLUME 91 fL (82-100); MONOCYTES # (AUTO) 0.3 /CMM (0.1-1.30); MONOCYTES % (AUTO) 1.6 % (2.0-12.0); NEUTROPHILS # (AUTO) 17.1 /CMM (1.8-8.9); NEUTROPHILS % (AUTO) 92.2 % (43.0-81.0); PLATELET COUNT (AUTO) 278 /CMM (150-450); RED BLOOD CELL COUNT(AUTO) 2.28 MIL/uL (4.0-5.2); WHITE BLOOD COUNT (AUTO) 18.5 K/uL (4.3-11.0)
[2020-06-21 09:42] LABS: HEMOGLOBIN 6.6 g/dL (11.5-14.8)
[2020-06-21 09:50] LABS: BILIRUBIN,TOTAL 0.4 mg/dL (0.2-1.0); CALCIUM, SERUM 8.2 mg/dL (8.5-10.1); CREATININE 0.6 mg/dL (0.6-1.3); MAGNESIUM 1.8 mg/dL (1.8-2.4); PHOSPHORUS 3.5 mg/dL (2.5-4.9); POTASSIUM 4.1 mmol/L (3.5-5.1); TOTAL PROTEIN, SERUM 5.3 g/dL (6.4-8.2)
[2020-06-21 09:56] LABS: ALBUMIN 0.8 g/dL (3.4-5.0)
[2020-06-21 10:43] LABS: BAND % (MANUAL) 1 % (0.0-5.0); LYMPHOCYTES % (MANUAL) 9 % (16-48); MONOCYTES % (MANUAL) 2 % (0-11.0); NEUTROPHILS % (MANUAL) 88 (42-76)
[2020-06-21 11:21] LABS: BASOPHILS % (AUTO) 0.2 % (0.0-2.0); EOSINOPHILS % (AUTO) 0.1 % (0.0-6.0); HEMATOCRIT 21 % (33-45); LYMPHOCYTES # (AUTO) 1.7 /CMM (0.8-4.8); LYMPHOCYTES % (AUTO) 9.1 % (20.0-44.0); MEAN CORPUSCULAR HGB CONC 32 g/dl (31.0-36.0); MEAN CORPUSCULAR VOLUME 91 fL (82-100); MONOCYTES # (AUTO) 0.4 /CMM (0.1-1.30); MONOCYTES % (AUTO) 2.2 % (2.0-12.0); NEUTROPHILS # (AUTO) 16.5 /CMM (1.8-8.9); NEUTROPHILS % (AUTO) 88.4 % (43.0-81.0); PLATELET COUNT (AUTO) 280 /CMM (150-450); RED BLOOD CELL COUNT(AUTO) 2.33 MIL/uL (4.0-5.2); WHITE BLOOD COUNT (AUTO) 18.7 K/uL (4.3-11.0)
[2020-06-21 11:50] LABS: HEMOGLOBIN 6.7 g/dL (11.5-14.8)
--- NOTE | 2020-06-21 12:01 | NUR ---
SOCIAL WORKER CLINICAL RECEIVED REPORT FROM [facility], HGB IS 6.7, NOTIFIED ERASTO RODRIGUEZ, CALLED THE BROTHER JARRET ZAMARRIPA AND RECEIVED CONSENT TO INFUSE 1 UNIT PRBC ORDERED BY THE DOCTOR.
[2020-06-21] MEDS: NOREPINEPHRINE 8 MG in IV NS 0.9% 242 ML IV PRN (12:44)
--- NOTE | 2020-06-21 16:47 | NUR ---
RN CU OVERFLOW NOTIFIED OF TROPONIN 10.564, NOTIFIED ERASTO BANERJEE, HE SAID HE DID NOT ORDER IT BUT KENNY DID AND HE WILL NOTIFY HIM. NO ORDERS AT THIS TIME.
--- NOTE | 2020-06-21 19:30 | NUR ---
VICE PRESIDENT OF TALENT ACQUISITION OVERFLOW PATIENT IN BED, NO S/S OF DISTRESS, INTUBATION IN PLACE ETT 7.5, AC 20, TV 391, FIO2 100%, PEEP 10, SEDATION SCORE OF 3, TEL MONITOR IN PLACE SINUS RHYTHM, EDEMA BILATERAL EXTREMITIES NON PITTING, AYALA IN PLACE DRAINING CLEAR YELLOW URINE, FEEDING RUNNING IN THE NG TUBE AT 20ML/HR TOLERATING WELL NO RESIDUAL PLACEMENT VERIFIED, R UA MIDLINE, L FEMORAL TRIPLE LUMEN, INTACT CLEAN DRY FLUSHES EASILY, PROPOFOL RUNNIING AT 60MGC/KG/MIN, LEVOPHED RUNNING AT 0.2MCG/MIN, DA FROM ICU IS TRYING TO WEAN PATIENT OFF LEVO, TOLERATING WELL, BED IN LOWEST LOCKED POSITION, SAFETY MEASURES IN PLACE, BED ALARM ON.
--- NOTE | 2020-06-21 19:56 | NUR ---
OPENING NOTES ICU OVF. RECEIVED PATIENT IN BED ON VENT SETTINGS ETT 7.11/08 AT LIP, AC 20, TV 400, FIO2 80%, PEEP 5. TOLERATING VENT SETTINGS WELL. NO SOB OR RESP DISTRESS NOTED, PATIENT IS SEDATED ON 60 MG/KG/MIN PROPOFOL. CARDIAC MONITORING IN PLACE DISPLAYING SINUS RHYTHM. HR OF 90. AYALA IN PLACE DRAINING CLEAR YELLOW URINE. PATIENT G TUBE RUNNING GLUCERNA 20 ML/HR. LEFT UPPER MIDLINE INTACT AND RIGHT FEMORAL PICC RUNNING PROPOFOL AND LEVO RUNNING 0.2 MCG/MIN. SAFETY MEASURES ARE IN PLACE, BED IS LOCKED LOCKED AND PLACED IN THE LOW POSITION SIDE RAILS UP X 3, CALL LIGHT WITH IN REACH, ,WILL CONTINUE TO MONITOR.
--- NOTE | 2020-06-21 20:24 | NUR ---
RT NOTE PT RECEIVED INTUBATED WITH 7.5 ET TUBE @ 23 CM MID LIP LINE. AMBU BAG @ HOB. SX DONE, SMALL THICK SECRETIONS NOTED. VENT PLUGGED TO RED OUTLET. ALARMS ON AND AUDIBLE. NO DISTRESS NOTED AT THIS TIME. PT CURRENTLY ON 100%. WILL CONTINUE TO MONITOR CLOSELY. Addendum: 06/21/20 at 2024 by JOSE WOLFE RT Amended: Links added.
[2020-06-21] MEDS ORDERED: MEROPENEM 500 MG in IV NS 0.9% 50 ML IV SCH (21:00)
[2020-06-21] MEDS: ENOXAPARIN SODIUM 60 MG/0.6 ML DISP.SYRIN SQ SCH (21:00)
[2020-06-22] VITALS (37 sets, daily range): BP systolic 83–110; BP diastolic 45–60
[2020-06-22] MEDS: INSULIN REGULAR, HUMAN 100 UNIT/ML 3 ML VIAL SQ PRN ×4 (00:26→18:22)
[2020-06-22] MEDS: BLOOD SUGAR DIAGNOSTIC 1 EACH STRIP IN SCH ×4 (00:29→18:22)
[2020-06-22] MEDS: MICAFUNGIN SODIUM 100 MG in IV NS 0.9% 100 ML IV SCH ×2 (00:30→21:03)
[2020-06-22] MEDS ORDERED: NOREPINEPHRINE 4 MG/4 ML AMPUL IV ONE (00:54)
--- NOTE | 2020-06-22 01:45 | NUR ---
PT RECEIVED 1PRBC TOLERATED WELL NO REACTION NOTED.
[2020-06-22] MEDS ORDERED: MEROPENEM 500 MG VIAL IV ONE (02:00)
[2020-06-22] MEDS ORDERED: MEROPENEM 500 MG in IV NS 0.9% 50 ML IV SCH (03:00)
--- NOTE | 2020-06-22 03:00 | NUR ---
CALLED [facility] WILL VERIFY OK TO GIVE MEDICATION AT THIS TIME, VIA BREONNA. NOTIFIED CLEMENTINA MANAGER PERFORMANCE ABOUT MEDICATION ABX, OK TO GIVE NURSE PREPARED MERREM 500MG IN NS 0.9% IN 100ML BAG WITH CHANGED RATE. NURSING LITIGATION LEGAL ASSISTANT AWARE.
[2020-06-22] MEDS: PROPOFOL 100 ML IV PRN ×4 (04:00→20:07)
[2020-06-22 06:13] LABS: ABG BASE EXCESS -5.6 mmol/L; ABG OXYGEN SATURATION 98.9 % (92.0-98.5); ABG PCO2 44.8 mmHg (35.0-45.0); ABG PH 7.286 (7.350-7.450); ABG PO2 149.5 mmHg (75.0-100.0); AaDO2 518.7 mmHg; COHb 0.3 % (0.5-1.5); MetHb 0.1 % (0.0-1.5); O2Hb 98.5 % (94.0-97.0); PEEP,BG 10 cm H2O; SITE, ABG Right Radial; VENT MODE, BG AC 20 400 100% +10; VT, ABG 400 mL
[2020-06-22] MEDS: NOREPINEPHRINE 8 MG in IV NS 0.9% 242 ML IV PRN ×3 (07:20→22:37)
--- NOTE | 2020-06-22 07:33 | NUR ---
RN OPENING NOTES PATIENT PRESENT IN BED, SEDATED ON PROPOFOL @ 60 MCG/KG/MIN, TOLERATING VENT SETTINGS WELL, NO SOB. DISTRESS NOTED, AYALA CATH IN PLACE, DRAINING YELLOW URINE BY GRAVITY, IV LINES INTACT AND FLUSHES WELL, NSR ON TELE-MONITOR, PATIENT BP MAINTAINS WITH LEVOPHED DRIP AT 0.4 MCG/KG/MIN AT THIS MOMENT, SAFETY MEASURES IN PLACE, CALL LIGHT IN REACH, HOB ELEVATED, BED IS LOCKED IN LOWEST POSITION, WILL CONT TO MONITOR
--- NOTE | 2020-06-22 07:42 | NUR ---
RN CLOSING NOTES NO CHANGE IN CONDITION OVER NIGHT, PT STILL ON VENT WITH SETTINGS ORDERED, FIO2 DECREASED TO 8O% TOLERATING WELL, SATURATION STILL AT 97% NO SOB OR RESP DISTRESS NOTED AT THIS TIME PT IS RECEIVING 0.4 MCG/KG/MIN ON LEVO. HOB ELEVATED SIDE RAILS UP X2 BED LOCKED IN LOWEST POSITION WILL CONT TO CLOSELY MONITOR.
[2020-06-22 07:52] LABS: BASOPHILS # (AUTO) 0.1 /CMM (0.0-0.2); BASOPHILS % (AUTO) 0.2 % (0.0-2.0); EOSINOPHILS % (AUTO) 0.2 % (0.0-6.0); HEMATOCRIT 28 % (33-45); HEMOGLOBIN 8.7 g/dL (11.5-14.8); LYMPHOCYTES # (AUTO) 1.4 /CMM (0.8-4.8); MEAN CORPUSCULAR HGB CONC 32 g/dl (31.0-36.0); MEAN CORPUSCULAR VOLUME 91 fL (82-100); MONOCYTES # (AUTO) 0.6 /CMM (0.1-1.30); MONOCYTES % (AUTO) 2.4 % (2.0-12.0); NEUTROPHILS % (AUTO) 91.2 % (43.0-81.0); PLATELET COUNT (AUTO) 356 /CMM (150-450); RED BLOOD CELL COUNT(AUTO) 3.03 MIL/uL (4.0-5.2); WHITE BLOOD COUNT (AUTO) 23.1 K/uL (4.3-11.0)
[2020-06-22 08:05] LABS: CALCIUM, SERUM 8.3 mg/dL (8.5-10.1); CREATININE 0.7 mg/dL (0.6-1.3); POTASSIUM 4.6 mmol/L (3.5-5.1)
[2020-06-22] MEDS: VANCOMYCIN HCL 0.75 GM in IV D5W 250 ML IV SCH (08:15)
--- NOTE | 2020-06-22 08:30 | NUR ---
BILATERAL FEET BLACKNESS NOTED, PICTURES TAKEN AND PLACED IN CHART SACRUM WOUND STAGE 2 NOTED, PICTURES TAKEN WELL
--- NOTE | 2020-06-22 08:40 | NUR ---
WOUND CARE CONSULT: REVIEWED CHART, NURSING DOCUMENTATION AND SPOKE WITH NURSING STAFF. PER RN, PT HAS GENERALIZED WEEPING EDEMA WITH MOISTURE/INCONTINENCE ASSOCIATED SKIN DAMAGE OVER SACRAL SCARRING. RECOMMENDATIONS MADE FOR SKIN PROTECTION. DISCUSSED WITH NURSING STAFF. LOW AIRLOSS MATTRESS IS ON ORDER. MD IN AGREEMENT WITH PLAN OF CARE. Addendum: 06/22/20 at 0848 by SHANIQUA GRANT WNDNU CORRECTION/ADDITIONAL: PT IS ON [facility] ISOFLEX LOW AIRLOSS BED. ALSO, PER NURSING STAFF, PT HAS BEEN TOO HEMODYNAMICALLY UNSTABLE TO TAKE NEW PHOTO OF SACRUM. PT TO BE TURNED AND REPOSITIONED EVERY 2 HRS AND NEW PHOTO TO BE TAKEN PT CONDITION PERMITS. DISCUSSED WITH NURSING STAFF.
[2020-06-22] MEDS: ENOXAPARIN SODIUM 60 MG/0.6 ML DISP.SYRIN SQ SCH ×3 (09:00→21:03)
--- NOTE | 2020-06-22 09:00 | NUR ---
No sedation vacation due high FIO2
[2020-06-22] MEDS: ASCORBIC ACID 500 MG TABLET GT SCH (09:17)
[2020-06-22] MEDS: MULTIVIT W/MINERALS 1 TAB TABLET GT SCH (09:17)
[2020-06-22] MEDS: CHOLECALCIFEROL 1,000 UNIT TABLET (VIT D3) PO SCH (09:17)
[2020-06-22] MEDS: ASPIRIN 81 MG TAB.CHEW GT SCH (09:18)
[2020-06-22] MEDS: ATORVASTATIN 40 MG TABLET GT SCH (09:18)
[2020-06-22] MEDS: PROSOURCE / PROSTAT (PYXIS) 30 ML UDC GT SCH ×2 (09:19→17:00)
--- NOTE | 2020-06-22 09:22 | NUR ---
Lovenox not given due recent blood transfusion and lo H/H
[2020-06-22] MEDS: MEROPENEM 1 G in IV NS 0.9% 100 ML IV SCH ×2 (09:29→20:08)
[2020-06-22] MEDS: GLUCERNA 1.2 1,000 ML BOTTLE GT PRN (09:44)
[2020-06-22 12:00] LABS: BAND % (MANUAL) 13 % (0.0-5.0); LYMPHOCYTES % (MANUAL) 2 % (16-48); METAMYELOCYTES % 1 % (0-0); MONOCYTES % (MANUAL) 2 % (0-11.0); MYELOCYTES % 1 % (0-0); NEUTROPHILS % (MANUAL) 81 (42-76)
--- NOTE | 2020-06-22 12:00 | NUR ---
transfer to room 256
--- NOTE | 2020-06-22 18:56 | NUR ---
RN CLOSING NOTES PATIENT IS STABLE, TOLERATING SETTINGS WELL, KEPT CLEAN AND DRY, MEDIATIONS GIVEN,SAFETY MEASURES IMPLEMENTED, WILL ENDORSE TO PM SHIFT RN FOR SEUN
[2020-06-23] VITALS (82 sets, daily range): BP systolic 65–126; BP diastolic 33–64
[2020-06-23] MEDS: INSULIN REGULAR, HUMAN 100 UNIT/ML 3 ML VIAL SQ PRN ×5 (00:21→23:53)
[2020-06-23] MEDS: BLOOD SUGAR DIAGNOSTIC 1 EACH STRIP IN SCH ×4 (00:21→17:39)
[2020-06-23] MEDS: VANCOMYCIN HCL 0.75 GM in IV D5W 250 ML IV SCH ×2 (01:01→19:04)
[2020-06-23] MEDS: PROPOFOL 100 ML IV PRN ×4 (03:06→21:31)
[2020-06-23] MEDS: NOREPINEPHRINE 8 MG in IV NS 0.9% 242 ML IV PRN ×4 (04:40→21:32)
--- NOTE | 2020-06-23 04:56 | NUR ---
INTERNAL REVIEW AND AUDIT COMPLIANCE OPENING NOTES: RECEIVED PATIENT IN BED INTUBATED, SEDATED ON DIPRIVAN AT 65MCG. SR ON TELE MONITOR. GTF IN PLACE GLUCERNA RUNNING AT 20ML/HR. RT FEMORAL TL AND STEVE MIDLINE INTACT PATENT FLUSHING WELL. AYALA CATH IN PLACE DRAINING URINE VIA GRAVITY. SAFETY MEASURES IN PLACE, CALL LIGHT WITHIN REACH. WILL CONT TO MONITOR FOR SEUN. Addendum: 06/23/20 at 0507 by GENO XAVIER RN ERROR IN CHARTING- CORRECT TIME 1929
[2020-06-23 05:34] LABS: ABG BASE EXCESS -5.7 mmol/L; ABG OXYGEN SATURATION 93.7 % (92.0-98.5); ABG PH 7.317 (7.350-7.450); ABG PO2 69.5 mmHg (75.0-100.0); AaDO2 458.9 mmHg; COHb 0.4 % (0.5-1.5); MetHb 0.6 % (0.0-1.5); O2Hb 92.8 % (94.0-97.0); PEEP,BG 10 cm H2O; SITE, ABG Right Radial; VENT MODE, BG AC 20 400 80% +10; VT, ABG 400 mL
--- NOTE | 2020-06-23 07:17 | NUR ---
RN NOTES NO S/S OF ACUTE DISTRESS NOTED. CONTINUES ON DIPRIVAN AT 65MCG. SR ON TELE MONITOR. GTF IN PLACE GLUCERNA RUNNING AT 20ML/HR. RT FEMORAL TL AND STEVE MIDLINE INTACT PATENT FLUSHING WELL. AYALA CATH IN PLACE DRAINING URINE VIA GRAVITY. SAFETY MEASURES IN PLACE, CALL LIGHT WITHIN REACH. WILL CONT TO MONITOR FOR SEUN.
--- NOTE | 2020-06-23 07:30 | NUR ---
RN OPENING NOTES PATIENT PRESENT IN BED, SEDATED ON PROPOFOL @ 65 MCG/KG/MIN, TOLERATING VENT SETTINGS WELL, NO SOB.SPO2 IS 97%, DISTRESS NOTED, AYALA CATH IN PLACE, DRAINING YELLOW URINE BY GRAVITY, IV LINES INTACT AND FLUSHES WELL, NSR ON TELE-MONITOR, PATIENT BP MAINTAINS WITH LEVOPHED DRIP AT 0.5 MCG/KG/MIN AT THIS MOMENT, SAFETY MEASURES IN PLACE, CALL LIGHT IN REACH, HOB ELEVATED, BED IS LOCKED IN LOWEST POSITION, WILL CONT TO MONITOR
[2020-06-23] MEDS: MEROPENEM 1 G in IV NS 0.9% 100 ML IV SCH ×2 (07:53→19:57)
[2020-06-23] MEDS: ASCORBIC ACID 500 MG TABLET GT SCH (08:08)
[2020-06-23] MEDS: MULTIVIT W/MINERALS 1 TAB TABLET GT SCH (08:08)
[2020-06-23] MEDS: ATORVASTATIN 40 MG TABLET GT SCH (08:08)
[2020-06-23] MEDS: CHOLECALCIFEROL 1,000 UNIT TABLET (VIT D3) PO SCH (08:08)
[2020-06-23] MEDS: ASPIRIN 81 MG TAB.CHEW GT SCH (08:08)
[2020-06-23] MEDS: PROSOURCE / PROSTAT (PYXIS) 30 ML UDC GT SCH ×2 (08:10→16:54)
[2020-06-23] MEDS: ENOXAPARIN SODIUM 60 MG/0.6 ML DISP.SYRIN SQ SCH (09:00)
--- NOTE | 2020-06-23 09:00 | NUR ---
NO SEDATION VACATION, PATIENT IS UNSTABLE
--- NOTE | 2020-06-23 09:00 | NUR ---
Lovenox not given due recent blood transfusion and low H/H
[2020-06-23 09:27] LABS: HEMOGLOBIN 7.8 g/dL (11.5-14.8)
--- NOTE | 2020-06-23 10:28 | NUR ---
WOUND CARE FOLLOW UP: EVALUATION OF NEW PHOTOS REQUESTED BY NURSING STAFF. REVIEWED CHART AND NEW PHOTOS, SPOKE WITH RN. PHOTOS INDICATE RT HIP SCARRING AND SACRAL DEEP TISSUE INJURY IN EVOLUTION OVER PREVIOUS SCARRING WELL INCONTINENCE ASSOCIATED SKIN DAMAGE TO PERIANAL AREA. PT HAS GENERALIZED EDEMA WITH WEEPING PER RN. RECOMMENDATIONS MADE FOR WOUND CARE AND SKIN PROTECTION. DISCUSSED WITH NURSING STAFF. MD IN AGREEMENT WITH PLAN OF CARE. Addendum: 06/23/20 at 1042 by SHANIQUA YEPEZU ADDITIONAL: PT IS ON [place] ISOFLEX LOW AIRLOSS MATTRESS. PT NOTED TO HAVE MULTIPLE CO-MORBIDITIES INCLUDING RESPIRATORY FAILURE (CURRENTLY INTUBATED), DIABETES AND RENAL FAILURE. DUE TO CO-MORBIDITIES, FURTHER SKIN BREAKDOWN MAY BE UNAVOIDABLE.
[2020-06-23 13:18] LABS: BILIRUBIN,TOTAL 0.5 mg/dL (0.2-1.0); CALCIUM, SERUM 8.1 mg/dL (8.5-10.1); CREATININE 0.8 mg/dL (0.6-1.3); PHOSPHORUS 4.6 mg/dL (2.5-4.9); POTASSIUM 4.2 mmol/L (3.5-5.1); TOTAL PROTEIN, SERUM 5.4 g/dL (6.4-8.2)
[2020-06-23] MEDS: GLUCERNA 1.2 1,000 ML BOTTLE GT PRN (13:58)
[2020-06-23 14:02] LABS: ALBUMIN 0.8 g/dL (3.4-5.0)
[2020-06-23] MEDS: ALBUMIN 25% 25 GM in PREMIX 1 EA IV SCH (15:05)
--- NOTE | 2020-06-23 18:47 | NUR ---
RN CLOSING NOTES PATIENT IS STABLE, TOLERATING SETTINGS WELL, KEPT CLEAN AND DRY, MEDIATIONS GIVEN,SAFETY MEASURES IMPLEMENTED, WILL ENDORSE TO PM SHIFT RN FOR SEUN
--- NOTE | 2020-06-23 19:30 | NUR ---
RN NOTES RECEIVED PATIENT IN BED INTUBATED SEDATED ON DIPRIVAN. VENT SETTING TOLERATING WELL ORDERED. TELE MONITOR READING SR IN 70'S. ON CONTACT AND DROPLET ISOLATION. IV'S SITES INTACT FLUSHES WELL. F/C INTACT YELLOW URINE DARNING WELL VIA GRAVITY. SAFETY MEASURES IN PLACE, CALL LIGHT WITHIN REACH WILL CONT TO MONITOR FOR SEUN.
[2020-06-23] MEDS: MICAFUNGIN SODIUM 100 MG in IV NS 0.9% 100 ML IV SCH (21:14)
[2020-06-24] VITALS (55 sets, daily range): BP systolic 48–126; BP diastolic 30–69
[2020-06-24] MEDS: BLOOD SUGAR DIAGNOSTIC 1 EACH STRIP IN SCH ×4 (00:25→18:06)
[2020-06-24] MEDS: NOREPINEPHRINE 8 MG in IV NS 0.9% 242 ML IV PRN ×4 (02:29→14:10)
[2020-06-24] MEDS: ALBUMIN 25% 25 GM in PREMIX 1 EA IV SCH (02:38)
--- NOTE | 2020-06-24 03:00 | NUR ---
PATIENT DESATURATING IN 80'S RT AT BED SIDE FIO2 INCREASED TO 100%.
[2020-06-24] MEDS: PROPOFOL 100 ML IV PRN ×4 (04:06→21:30)
[2020-06-24 04:29] LABS: BASOPHILS # (AUTO) 0.1 /CMM (0.0-0.2); BASOPHILS % (AUTO) 0.2 % (0.0-2.0); EOSINOPHILS % (AUTO) 0.3 % (0.0-6.0); HEMATOCRIT 25 % (33-45); HEMOGLOBIN 7.9 g/dL (11.5-14.8); LYMPHOCYTES # (AUTO) 1.4 /CMM (0.8-4.8); LYMPHOCYTES % (AUTO) 4.7 % (20.0-44.0); MEAN CORPUSCULAR HGB CONC 32 g/dl (31.0-36.0); MEAN CORPUSCULAR VOLUME 92 fL (82-100); MONOCYTES # (AUTO) 0.7 /CMM (0.1-1.30); MONOCYTES % (AUTO) 2.3 % (2.0-12.0); NEUTROPHILS # (AUTO) 26.9 /CMM (1.8-8.9); NEUTROPHILS % (AUTO) 92.5 % (43.0-81.0); PLATELET COUNT (AUTO) 337 /CMM (150-450); RED BLOOD CELL COUNT(AUTO) 2.74 MIL/uL (4.0-5.2); WHITE BLOOD COUNT (AUTO) 29.1 K/uL (4.3-11.0)
[2020-06-24 04:38] LABS: ALBUMIN 2.2 g/dL (3.4-5.0); BILIRUBIN,TOTAL 0.9 mg/dL (0.2-1.0); CALCIUM, SERUM 8.3 mg/dL (8.5-10.1); CREATININE 0.8 mg/dL (0.6-1.3); TOTAL PROTEIN, SERUM 6.5 g/dL (6.4-8.2)
[2020-06-24 06:25] LABS: ABG BASE EXCESS -6.3 mmol/L; ABG OXYGEN SATURATION 96.5 % (92.0-98.5); ABG PCO2 59.1 mmHg (35.0-45.0); ABG PH 7.187 (7.350-7.450); ABG PO2 92.1 mmHg (75.0-100.0); AaDO2 561.8 mmHg; COHb 0.3 % (0.5-1.5); MetHb 0.2 % (0.0-1.5); PEEP,BG 12 cm H2O; SITE, ABG Right Radial; VENT MODE, BG VENT AC; VT, ABG 400 mL
[2020-06-24] MEDS ORDERED: NOREPINEPHRINE 4 MG/4 ML AMPUL IV ONE (06:29)
--- NOTE | 2020-06-24 07:52 | NUR ---
REPORT GIVEN TO AM NURSE NO CHANGES NOTED DURING SHIFT.REMAINED SEDATED AND INTUBATED. VENT SETTING TOLERATING WELL ORDERED. IV LINES INTACT PATENT FLUSHING WELL. SAFETY MAINTAINED. CALL LIGHT WITHIN REACH.
[2020-06-24] MEDS: PROSOURCE / PROSTAT (PYXIS) 30 ML UDC GT SCH ×2 (09:00→17:00)
[2020-06-24] MEDS: MEROPENEM 1 G in IV NS 0.9% 100 ML IV SCH ×2 (10:09→20:06)
[2020-06-24] MEDS: HYDROCORTISONE SOD SUCCINATE 100 MG/2 ML VIAL IV SCH ×3 (10:29→21:06)
[2020-06-24] MEDS: CHOLECALCIFEROL 1,000 UNIT TABLET (VIT D3) PO SCH (10:30)
[2020-06-24] MEDS: MULTIVIT W/MINERALS 1 TAB TABLET GT SCH (10:30)
[2020-06-24] MEDS: ASCORBIC ACID 500 MG TABLET GT SCH (10:31)
[2020-06-24] MEDS: ATORVASTATIN 40 MG TABLET GT SCH (10:31)
[2020-06-24] MEDS: ASPIRIN 81 MG TAB.CHEW GT SCH (10:31)
[2020-06-24] MEDS: INSULIN REGULAR, HUMAN 100 UNIT/ML 3 ML VIAL SQ PRN ×2 (14:14→18:08)
[2020-06-24] MEDS: NOREPINEPHRINE 32 MG in IV NS 0.9% 218 ML IV PRN (17:33)
--- NOTE | 2020-06-24 19:30 | NUR ---
RN NOTES RECEIVED PATIENT NON VERBAL ORALLY INTUBATED ON FULL VENT SUPPORT. VENT SETTING TOLERATING WELL ORDERED. NO S/S OF ACUTE DISTRESS NOTED. SEDATED ON DIPRIVAN GTT AT 65MCG, LEVO AT 0.3 INFUSING VIA RT FEMORAL TLC INTACT, TELE MONITOR SR. F/C DARNING WELL TO GRAVITY. NO S/S OF ACUTE DISTRESS NOTED. SAFETY MEASURES IN PLACE, CALL LIGHT WITHIN REACH. WILL CONT TO MONITOR FOR SEUN.
--- NOTE | 2020-06-24 19:35 | NUR ---
INFORMED DR LEIGH (SUPERVISOR PROPERTIES) REGARDING VANCOMYCIN TROUGH LEVEL OF 57, AWAITING FOR RESPONSE. ENDORSED TO NEXT SHIFT.
--- NOTE | 2020-06-24 19:49 | NUR ---
PT REC'D ORALLY INTUBATED VIA ETT 7.5 SECURED @ 23 CM [facility] WITH THE SETTINGS OF AC 26, 450,100%,PEEP 12. NO RESPIRATORY DISTRESS NOTED AT THIS TIME. SX DONE . ALARMS ARE SET AND AUDIBLE. VENT PLUGGED INTO RED OUTLET. AMBU BAG@ BEDSIDE. WILL CONTINUE TO MONITOR T/O THE SHIFT.
[2020-06-24] MEDS ORDERED: PHENYLEPHRINE 100 MG in IV NS 0.9% 240 ML IV PRN (21:00)
[2020-06-24] MEDS ORDERED: VANCOMYCIN HCL 0.75 GM in IV D5W 250 ML IV SCH (21:00)
--- NOTE | 2020-06-24 21:35 | NUR ---
VANCOMYCIN TROUGH IS 36 PER PHARMACIST HOLD THE DOSE IG TROUGH LEVEL IS ABOVE 20. DOSE HELD ORDERED.
[2020-06-25] VITALS (93 sets, daily range): BP systolic 90–127; BP diastolic 46–75
[2020-06-25] MEDS: BLOOD SUGAR DIAGNOSTIC 1 EACH STRIP IN SCH ×4 (00:06→18:28)
[2020-06-25] MEDS: INSULIN REGULAR, HUMAN 100 UNIT/ML 3 ML VIAL SQ PRN ×3 (00:08→18:29)
--- NOTE | 2020-06-25 01:30 | NUR ---
FIO2 LOWER TO 90%.
[2020-06-25] MEDS: PROPOFOL 100 ML IV PRN ×2 (03:26→09:22)
--- NOTE | 2020-06-25 04:00 | NUR ---
PT REMAINED ON SAME VENT SETTING TOLERATED WELL.WILL CONTINUE TO MONITOR
[2020-06-25 04:59] LABS: BASOPHILS # (AUTO) 0.1 /CMM (0.0-0.2); BASOPHILS % (AUTO) 0.2 % (0.0-2.0); HEMATOCRIT 29 % (33-45); LYMPHOCYTES # (AUTO) 1.8 /CMM (0.8-4.8); LYMPHOCYTES % (AUTO) 4.7 % (20.0-44.0); MEAN CORPUSCULAR HGB CONC 31 g/dl (31.0-36.0); MEAN CORPUSCULAR VOLUME 92 fL (82-100); MONOCYTES # (AUTO) 0.8 /CMM (0.1-1.30); NEUTROPHILS # (AUTO) 34.9 /CMM (1.8-8.9); NEUTROPHILS % (AUTO) 93.1 % (43.0-81.0); PLATELET COUNT (AUTO) 369 /CMM (150-450); RED BLOOD CELL COUNT(AUTO) 3.15 MIL/uL (4.0-5.2)
[2020-06-25 05:11] LABS: WHITE BLOOD COUNT (AUTO) 37.5 K/uL (4.3-11.0)
[2020-06-25 05:23] LABS: ALANINE AMINOTRANSFERASE 18 U/L (12-78); ALBUMIN 1.5 g/dL (3.4-5.0); ALKALINE PHOSPHATASE 448 U/L (46-116); ASPARTATE AMINOTRANSFERASE 59 U/L (15-37); BILIRUBIN,TOTAL 0.8 mg/dL (0.2-1.0); CALCIUM, SERUM 8.2 mg/dL (8.5-10.1); CARBON DIOXIDE 19 mmol/L (21-32); CHLORIDE 109 mmol/L (98-107); CREATININE 0.9 mg/dL (0.6-1.3); GLUCOSE 151 mg/dL (74-106); POTASSIUM 4.9 mmol/L (3.5-5.1); SODIUM SERUM 142 mmol/L (136-145); TOTAL PROTEIN, SERUM 6.2 g/dL (6.4-8.2); UREA NITROGEN, BLOOD 47 mg/dL (7-18)
[2020-06-25] MEDS: HYDROCORTISONE SOD SUCCINATE 100 MG/2 ML VIAL IV SCH ×3 (05:40→21:24)
[2020-06-25] MEDS ORDERED: NOREPINEPHRINE 4 MG/4 ML AMPUL IV ONE ×2 (06:16→06:22)
[2020-06-25] MEDS: NOREPINEPHRINE 32 MG in IV NS 0.9% 218 ML IV PRN ×2 (06:49→21:19)
[2020-06-25 06:59] LABS: BAND % (MANUAL) 12 % (0.0-5.0); LYMPHOCYTES % (MANUAL) 2 % (16-48); METAMYELOCYTES % 5 % (0-0); MONOCYTES % (MANUAL) 1 % (0-11.0); MYELOCYTES % 5 % (0-0); NEUTROPHILS % (MANUAL) 74 (42-76); PROMYELOCYTES % 1 % (0-0)
[2020-06-25] MEDS: MEROPENEM 1 G in IV NS 0.9% 100 ML IV SCH ×2 (08:16→20:30)
[2020-06-25 08:45] LABS: ABG BASE EXCESS -8.3 mmol/L; ABG OXYGEN SATURATION 94.6 % (92.0-98.5); ABG PCO2 45.5 mmHg (35.0-45.0); ABG PH 7.232 (7.350-7.450); ABG PO2 75.5 mmHg (75.0-100.0); AaDO2 519.6 mmHg; COHb 0.3 % (0.5-1.5); MetHb 0.1 % (0.0-1.5); O2Hb 94.2 % (94.0-97.0); PEEP,BG 12 cm H2O; SITE, ABG Right Brachial; VENT MODE, BG AC 90%; VT, ABG 450 mL
[2020-06-25] MEDS: CHOLECALCIFEROL 1,000 UNIT TABLET (VIT D3) PO SCH (08:47)
[2020-06-25] MEDS: PROSOURCE / PROSTAT (PYXIS) 30 ML UDC GT SCH ×2 (08:47→17:56)
[2020-06-25] MEDS: ATORVASTATIN 40 MG TABLET GT SCH (08:47)
[2020-06-25] MEDS: ASCORBIC ACID 500 MG TABLET GT SCH (08:47)
[2020-06-25] MEDS: MULTIVIT W/MINERALS 1 TAB TABLET GT SCH (08:47)
[2020-06-25] MEDS: ASPIRIN 81 MG TAB.CHEW GT SCH (08:47)
--- NOTE | 2020-06-25 14:45 | NUR ---
vent changes below as order: fio2 80% Addendum: 06/25/20 at 1446 by ARMIDA BAXTER RT Amended: Links added.
[2020-06-25] MEDS: ENOXAPARIN SODIUM 60 MG/0.6 ML DISP.SYRIN SQ SCH (17:56)
--- NOTE | 2020-06-25 19:30 | NUR ---
SUB MASTER RCD PT W/DX SEPSIS, COVID PNA. PT DNR STATUS. ON ISOLATION PRECAUTIONS. INTUBATED 7.5 @ 23 W/VENT SETTINGS AC 26 450 100% +12; PT FOUND WITH A THICK CRUSTY LAYER ON HER GUMS; RENDERED ORAL CARE. SEDATED ON PROPOFOL AT 65 MCG/KG/MIN. PT RESPONDS TO PAINFUL STIMULI. NSR ON MONITOR W/LEVOPHED AT 1 MCG/KG/MIN TO MAINTAIN SBP >90; PT WEIGHT 50 KG HOWEVER BOTH PUMPS WERE SET TO 40 KG; ADJUSTED ACCORDINGLY. PT WITH GTUBE FOUNF TUBE FEEDING TURNED OFF AND CONNECTED TO PT. FEEDING INSIDE BOTTLE WAS CHUNKY; DISCARDED AT THIS TIME. PT NOTED WITH GENERALIZED EDEMA; BUE WEEPING AND HANDS SWOLLEN AND COLD TO TOUCH. FEET NOTED TO BE MOTTLED WITH WEAK PULSES. MULTIPLE BLISTERS AT RIGHT FEM TLC SITE; DRESSING SOAKED AND BIOPATCH NOT IN PLACE; LINE RESISTANT TO FLUSHING AND WITHOUT BLOOD RETURN NOTED. STEVE MIDLINE NOTED ALSO WITHOUT BLOOD RETURN. SACRAL OPEN WOUND WITH DRESSING CHANGE RENDERED AND RIGHT HIP OPEN WOUND WITH MEPILEX REPLACED IT WAS SOAKED WITH YELLOW/WHITE DISCHARGE.
--- NOTE | 2020-06-25 19:45 | NUR ---
PT SEDATED W HOB ELEVATED. VENT SETTINGS ORDERED. SAO2 90S. NO SIGNS OF DISTRESS. SR ON TELE. GT INTACT, FLUSHED AND AUSCULATED AND CHECKED FOR RESIDUAL BEFORE EACH FLUSHED AND NANOSCIENCE TECHNICIAN. WOUND CARE ORDERED. TURNED AND REPOSITIONED Q2H AND ELEVATED EXTREMITIES. JEVITY RUNNING 20ML/HR ORDERED. STEVE MIDLINE AND R FEM TRIPLE LUMEN CATH FLUSHED AND DRESSING DRY AND INTACT. NO SIGNS OF INFILTRATION. RUNNING DIPRIVAN AND LEVO ORDERED AND TITRATED ORDERED. MONITORED VS Q15MIN AND NEEDED. REPORTED TO MD NEEDED. IMPLEMENTED ORDERS AND PLAN OF CARE SUCCESSFULLY. ALL HOSPITAL POLICY SAFETY PRECAUTIONS IMPLEMENTED. RAILS UPX2, HOB ELEVATED 30 DEGREES. BED LOW, LOCKED. ENDORSED TO PM RN.
[2020-06-25] MEDS: GLUCERNA 1.2 1,000 ML BOTTLE GT PRN (21:51)
[2020-06-26] VITALS (94 sets, daily range): BP systolic 40–154; BP diastolic 31–81
[2020-06-26] MEDS: PROPOFOL 100 ML IV PRN ×2 (00:25→05:54)
[2020-06-26] MEDS: BLOOD SUGAR DIAGNOSTIC 1 EACH STRIP IN SCH ×4 (00:25→17:23)
[2020-06-26] MEDS: INSULIN REGULAR, HUMAN 100 UNIT/ML 3 ML VIAL SQ PRN ×3 (00:56→13:07)
[2020-06-26] MEDS: HYDROCORTISONE SOD SUCCINATE 100 MG/2 ML VIAL IV SCH ×3 (05:04→21:26)
[2020-06-26 05:34] LABS: CALCIUM, SERUM 7.5 mg/dL (8.5-10.1); CARBON DIOXIDE 21 mmol/L (21-32); CHLORIDE 109 mmol/L (98-107); GLUCOSE 198 mg/dL (74-106); POTASSIUM 5.1 mmol/L (3.5-5.1); SODIUM SERUM 142 mmol/L (136-145); UREA NITROGEN, BLOOD 53 mg/dL (7-18)
[2020-06-26] MEDS: ENOXAPARIN SODIUM 60 MG/0.6 ML DISP.SYRIN SQ SCH ×2 (05:53→17:25)
--- NOTE | 2020-06-26 07:15 | NUR ---
LINUX SYSTEMS ANALYST NOTES RECEIVED PATIENT UNRESPONSIVE , SEDATED WITH DIPRIVAN @ 60MCG/KG/MIN , TOLERATING CURRENT VENT SETTINGS WITH SPO2 OF 100% , ETT 7.[address] , SR 75 ON BEDSIDE MONITOR , GT PATENT AND INTACT WITH JEVITY @20ML/HT NOTED WITH 600ML RESIDUALS FC DRAINING VIA GRAVITY , RFEM TLC WITH LEVOPHED @ 0.6MCG/KG/MIN , NS @ TKO INFUSING WELL , ALL NEEDS ATTENDED , WILL CONTINUE TO MONITOR .
[2020-06-26 07:51] LABS: ABG BASE EXCESS -9.2 mmol/L; ABG OXYGEN SATURATION 91.5 % (92.0-98.5); ABG PO2 70.3 mmHg (75.0-100.0); AaDO2 449.7 mmHg; COHb 0.3 % (0.5-1.5); MetHb 0.4 % (0.0-1.5); O2Hb 90.9 % (94.0-97.0); SITE, ABG Right Radial; VENT MODE, BG AC 26 450 +12 80%
[2020-06-26] MEDS: MEROPENEM 1 G in IV NS 0.9% 100 ML IV SCH ×2 (08:30→20:31)
[2020-06-26] MEDS: ASCORBIC ACID 500 MG TABLET GT SCH (08:31)
[2020-06-26] MEDS: ATORVASTATIN 40 MG TABLET GT SCH (08:31)
[2020-06-26] MEDS: ASPIRIN 81 MG TAB.CHEW GT SCH (08:31)
[2020-06-26] MEDS: CHOLECALCIFEROL 1,000 UNIT TABLET (VIT D3) PO SCH (08:31)
[2020-06-26] MEDS: MULTIVIT W/MINERALS 1 TAB TABLET GT SCH (08:31)
[2020-06-26] MEDS: PROSOURCE / PROSTAT (PYXIS) 30 ML UDC GT SCH ×2 (08:32→17:23)
[2020-06-26] MEDS ORDERED: VANCOMYCIN HCL 0.75 GM in IV D5W 250 ML IV SCH (09:00)
--- NOTE | 2020-06-26 13:00 | NUR ---
HEATING EQUIPMENT REPAIRER NOTES SEEN AND EVALUATED BY DR KU , DISCUSSED LABS , PENDING CBC , PT ON LEVOPHE @ 0.5MCG/KG/MIN , OFF DIPRIVAN PT STILL UNRESPONSIVE , AFEBRILE , TOLERATING CURRENT VENT SETTINGS WITH SPO2 OF 100% MOTTLED BILATERAL DISTAL FOOT PULSES WEAK UPON PALPATION , COOL TO TOUCH , NOT TOLERATING GT FEEDING NOTED WITH 600ML RESIDUALS , GT FEEDING HELD , SAGGER SOAK AWARE
[2020-06-26 15:20] LABS: BASOPHILS # (AUTO) 0.1 /CMM (0.0-0.2); LYMPHOCYTES % (AUTO) 6.4 % (20.0-44.0); MEAN CORPUSCULAR HGB CONC 31 g/dl (31.0-36.0)
[2020-06-26 15:27] LABS: BASOPHILS % (AUTO) 0.4 % (0.0-2.0); HEMATOCRIT 24 % (33-45); HEMOGLOBIN 7.3 g/dL (11.5-14.8); MEAN CORPUSCULAR VOLUME 92 fL (82-100); MONOCYTES % (AUTO) 3.1 % (2.0-12.0); NEUTROPHILS # (AUTO) 28.5 /CMM (1.8-8.9); NEUTROPHILS % (AUTO) 90.1 % (43.0-81.0); PLATELET COUNT (AUTO) 359 /CMM (150-450); RED BLOOD CELL COUNT(AUTO) 2.59 MIL/uL (4.0-5.2)
[2020-06-26] MEDS: NOREPINEPHRINE 32 MG in IV NS 0.9% 218 ML IV PRN (15:31)
[2020-06-26 16:32] LABS: WHITE BLOOD COUNT (AUTO) 31.7 K/uL (4.3-11.0)
[2020-06-26 16:51] LABS: BAND % (MANUAL) 9 % (0.0-5.0); LYMPHOCYTES % (MANUAL) 6 % (16-48); MONOCYTES % (MANUAL) 3 % (0-11.0); MYELOCYTES % 2 % (0-0); NEUTROPHILS % (MANUAL) 80 (42-76)
--- NOTE | 2020-06-26 19:25 | NUR ---
PT REC'D ORALLY INTUBATED VIA ETT 7.5 SECURED @ 23CM [facility] WITH THE SETTINGS OF AC 26, 500,80%,PEEP 12. PT IS UNRESPONSIVE , SEDATED. NO RESPIRATORY DISTRESS NOTED AT THIS TIME. SX DONE . ALARMS ARE SET AND AUDIBLE. VENT PLUGGED INTO RED OUTLET. AMBU BAG@ BEDSIDE. WILL CONTINUE TO MONITOR T/O THE SHIFT.
[2020-06-27] VITALS (85 sets, daily range): BP systolic 83–123; BP diastolic 42–71
[2020-06-27] MEDS: BLOOD SUGAR DIAGNOSTIC 1 EACH STRIP IN SCH ×5 (00:37→23:43)
[2020-06-27 04:53] LABS: BASOPHILS # (AUTO) 0.1 /CMM (0.0-0.2); BASOPHILS % (AUTO) 0.4 % (0.0-2.0); EOSINOPHILS % (AUTO) 0.1 % (0.0-6.0); HEMATOCRIT 24 % (33-45); HEMOGLOBIN 7.3 g/dL (11.5-14.8); LYMPHOCYTES # (AUTO) 2.1 /CMM (0.8-4.8); LYMPHOCYTES % (AUTO) 6.5 % (20.0-44.0); MEAN CORPUSCULAR HGB CONC 30 g/dl (31.0-36.0); MEAN CORPUSCULAR VOLUME 94 fL (82-100); MONOCYTES # (AUTO) 0.4 /CMM (0.1-1.30); MONOCYTES % (AUTO) 1.3 % (2.0-12.0); NEUTROPHILS # (AUTO) 30.2 /CMM (1.8-8.9); NEUTROPHILS % (AUTO) 91.7 % (43.0-81.0); PLATELET COUNT (AUTO) 342 /CMM (150-450); RED BLOOD CELL COUNT(AUTO) 2.59 MIL/uL (4.0-5.2)
[2020-06-27 05:01] LABS: CALCIUM, SERUM 7.7 mg/dL (8.5-10.1); CARBON DIOXIDE 17 mmol/L (21-32); CHLORIDE 109 mmol/L (98-107); CREATININE 1.2 mg/dL (0.6-1.3); GLUCOSE 141 mg/dL (74-106); POTASSIUM 5.5 mmol/L (3.5-5.1); SODIUM SERUM 142 mmol/L (136-145); UREA NITROGEN, BLOOD 62 mg/dL (7-18)
[2020-06-27 05:12] LABS: MAGNESIUM 2.4 mg/dL (1.8-2.4); PHOSPHORUS 7.1 mg/dL (2.5-4.9)
[2020-06-27] MEDS: HYDROCORTISONE SOD SUCCINATE 100 MG/2 ML VIAL IV SCH ×3 (05:12→20:32)
[2020-06-27 06:01] LABS: BAND % (MANUAL) 10 % (0.0-5.0); LYMPHOCYTES % (MANUAL) 6 % (16-48); METAMYELOCYTES % 3 % (0-0); MYELOCYTES % 8 % (0-0); NEUTROPHILS % (MANUAL) 72 (42-76); PROMYELOCYTES % 1 % (0-0)
[2020-06-27] MEDS: ENOXAPARIN SODIUM 60 MG/0.6 ML DISP.SYRIN SQ SCH (06:25)
[2020-06-27] MEDS ORDERED: VANCOMYCIN HCL 0.75 GM in IV D5W 250 ML IV SCH ×2 (07:30→09:00)
[2020-06-27] MEDS: ASPIRIN 81 MG TAB.CHEW GT SCH (08:30)
[2020-06-27] MEDS: MEROPENEM 1 G in IV NS 0.9% 100 ML IV SCH ×2 (08:30→20:32)
[2020-06-27] MEDS: ATORVASTATIN 40 MG TABLET GT SCH (08:30)
[2020-06-27] MEDS: ASCORBIC ACID 500 MG TABLET GT SCH (08:30)
[2020-06-27] MEDS: PROSOURCE / PROSTAT (PYXIS) 30 ML UDC GT SCH ×2 (08:30→16:31)
[2020-06-27] MEDS: MULTIVIT W/MINERALS 1 TAB TABLET GT SCH (08:30)
[2020-06-27] MEDS: CHOLECALCIFEROL 1,000 UNIT TABLET (VIT D3) PO SCH (08:30)
[2020-06-27] MEDS: NOREPINEPHRINE 32 MG in IV NS 0.9% 218 ML IV PRN (09:26)
--- NOTE | 2020-06-27 09:45 | NUR ---
AUTOMOTIVE LEASING SALES REPRESENTATIVE NOTES RECEIVED PATIENT UNRESPONSIVE , TOLERATING CURRENT VENT SETTINGS WITH SPO2 OF 100% , ETT 7.[address] , SR 85 ON BEDSIDE MONITOR , GT PATENT AND INTACT NOTED WITH BROWNISH RESIDUALS 150ML IN AMOUNT ,FC DRAINING VIA GRAVITY , RIGHT FEM TLC WITH LEVOPHED @ 0.1MCG/KG/MIN , NS @ TKO INFUSING WELL , ALL NEEDS ATTENDED , WILL CONTINUE TO MONITOR .
[2020-06-27 10:33] LABS: ABG OXYGEN SATURATION 94.1 % (92.0-98.5); ABG PCO2 37.6 mmHg (35.0-45.0); ABG PH 7.123 (7.350-7.450); AaDO2 513.2 mmHg; O2Hb 92.2 % (94.0-97.0); PEEP,BG 12 cm H2O; SITE, ABG Left Radial; VT, ABG 500 mL
--- NOTE | 2020-06-27 10:43 | NUR ---
CHUCK TENDER NOTES ABG RELAYED BY RT PANG TO DR OLGUIN , PER MD INCREASE RATE TO 30 , PER MD GIVE 1 AMP OF SODIUM BICARBONATE , D5W @ 100 ML/HR WITH 150 MEQ OF SODIUM BICARBONATE AND REPEAT ABG AT 1400 , NO NEED TO SEDATE THE PT PT IS NON RESPONSIVE PER MD .
[2020-06-27] MEDS ORDERED: SODIUM BICARBONATE SYR 50 MEQ/50 ML DISP.SYRIN IV ONE (11:00)
[2020-06-27] MEDS: Sodium Bicarbonate 150 MEQ in IV D5W 1,000 ML IV PRN ×2 (11:38→21:36)
[2020-06-27] MEDS: VASOPRESSIN INJ 40 UNIT in IV NS 0.9% 38 ML IV PRN ×2 (15:21→23:32)
--- NOTE | 2020-06-27 15:50 | NUR ---
FLIGHT ENGINEER MANAGER NOTES NOTIFIED [facility] REGARDING DARK TARRY GASTRIC RESIDUALS UPON ASPIRATION , 300 ML OUT NOTED ,1 UNIT PRBC GIVEN , DISCUSSED LATEST CBC , VERIFIED WITH SHEARER SCREEN MEASURER AND TRIMMER IF IT OK TO ATTACHED GT TO LOW INTERMITTENMT SUCTION , PER MD OK FOR LOW INTERMITTENT SUCTION , ORDER CARRIED OUT
[2020-06-27 16:33] LABS: ABG BASE EXCESS -13.1 mmol/L; ABG PCO2 44.9 mmHg (35.0-45.0); ABG PH 7.147 (7.350-7.450); ABG PO2 64.1 mmHg (75.0-100.0); AaDO2 495.4 mmHg; COHb 0.3 % (0.5-1.5); MetHb 0.1 % (0.0-1.5); O2Hb 89.6 % (94.0-97.0); PEEP,BG 12 cm H2O; SITE, ABG Left Radial; VT, ABG 500 mL
--- NOTE | 2020-06-27 16:53 | NUR ---
SET BUILDER NOTES STOOL FOR C DIFF UNABLE TO COLLECT , STOOL IS SOFT BROWN MUCOID IN CONSISTENCY ,
--- NOTE | 2020-06-27 18:36 | NUR ---
RETAIL OFFICE MANAGER NOTES PAGED PULMO LABOR RELATIONS OR PERSONNEL NEGOTIATOR , SPOKE WITH DR GOLD REGARDING PT LACTIC ACID OF 6.7 , NO ORDERS RECEIVED .
[2020-06-27] MEDS: MICAFUNGIN SODIUM 100 MG in IV NS 0.9% 100 ML IV SCH (20:00)
[2020-06-27] MEDS: ENOXAPARIN SODIUM 40 MG/0.4 ML DISP.SYRIN SQ SCH (20:33)
[2020-06-27 21:23] LABS: BILIRUBIN,DIRECT 0.8 mg/dL (0.0-0.2); BILIRUBIN,TOTAL 0.9 mg/dL (0.2-1.0)
[2020-06-27] MEDS: INSULIN REGULAR, HUMAN 100 UNIT/ML 3 ML VIAL SQ PRN (23:43)
[2020-06-28] VITALS (80 sets, daily range): BP systolic 46–121; BP diastolic 19–78
--- NOTE | 2020-06-28 03:30 | NUR ---
ARCHERY EQUIPMENT REPAIRER PT IS COMATOSE, NONRESPONSIVE TO ANY STIMULI. SBP DRAMATICALLY DROPPED TO 50'S. EVEN PRESSORS LEVOPHED & VASOPRESSIN ARE RUNNING MAX. GIOVANNY BANERJEE NP ROULETTE DEALER WAS NOTIFIED & HE STATED THAT NO MORE PRESSORS SUPPOSED TO BE ADDED. GT CONNECTED TO LIS DRAINS COFFEE GROUND CONTENT. PT IS OLIGURIC.
[2020-06-28] MEDS ORDERED: NOREPINEPHRINE 8MG/250ML RTU 250 ML IV ONE (03:40)
[2020-06-28] MEDS ORDERED: NOREPINEPHRINE 4 MG/4 ML AMPUL IV ONE (03:54)
[2020-06-28] MEDS: NOREPINEPHRINE 32 MG in IV NS 0.9% 218 ML IV PRN (04:07)
[2020-06-28 04:48] LABS: BILIRUBIN,URINE NEGATIVE (NEGATIVE); COLOR,URINE YELLOW (YELLOW); LEUKOCYTE ESTERASE ,URINE NEGATIVE (NEGATIVE); NITRITE, URINE NEGATIVE (NEGATIVE); PH,URINE 5.5 (5.0-8.0); PROTEIN,URINE 30 mg/dl (NEGATIVE); UGLUCOSE NEGATIVE (NEGATIVE); UROBILINOGEN,URINE 0.2 EU/dL (0.2)
[2020-06-28 04:49] LABS: BASOPHILS # (AUTO) 0.3 /CMM (0.0-0.2); BASOPHILS % (AUTO) 0.7 % (0.0-2.0); EOSINOPHILS % (AUTO) 0.7 % (0.0-6.0); HEMATOCRIT 31 % (33-45); HEMOGLOBIN 8.9 g/dL (11.5-14.8); LYMPHOCYTES # (AUTO) 1.5 /CMM (0.8-4.8); LYMPHOCYTES % (AUTO) 3.5 % (20.0-44.0); MEAN CORPUSCULAR HGB CONC 29 g/dl (31.0-36.0); MEAN CORPUSCULAR VOLUME 100 fL (82-100); MONOCYTES # (AUTO) 0.7 /CMM (0.1-1.30); MONOCYTES % (AUTO) 1.7 % (2.0-12.0); NEUTROPHILS # (AUTO) 38.5 /CMM (1.8-8.9); NEUTROPHILS % (AUTO) 93.4 % (43.0-81.0); PLATELET COUNT (AUTO) 282 /CMM (150-450); RED BLOOD CELL COUNT(AUTO) 3.08 MIL/uL (4.0-5.2)
[2020-06-28 04:51] LABS: WHITE BLOOD COUNT (AUTO) 41.2 K/uL (4.3-11.0)
[2020-06-28 05:03] LABS: CALCIUM, SERUM 7.2 mg/dL (8.5-10.1); CARBON DIOXIDE 12 mmol/L (21-32); CHLORIDE 106 mmol/L (98-107); CREATININE 1.6 mg/dL (0.6-1.3); GLUCOSE 95 mg/dL (74-106); MAGNESIUM 2.6 mg/dL (1.8-2.4); SODIUM SERUM 141 mmol/L (136-145); UREA NITROGEN, BLOOD 70 mg/dL (7-18)
[2020-06-28 05:13] LABS: BACTERIA,URINE 2+ /HPF (None Seen); SQUAMOUS EPITHELIAL CELL,UR Few /HPF (None Seen); URINE AMORPHOUS URATE Many /HPF (None Seen)
[2020-06-28 05:22] LABS: PHOSPHORUS 10.4 mg/dL (2.5-4.9); POTASSIUM 7.9 mmol/L (3.5-5.1)
[2020-06-28] MEDS: HYDROCORTISONE SOD SUCCINATE 100 MG/2 ML VIAL IV SCH ×3 (05:28→20:32)
[2020-06-28 05:31] LABS: NEUTROPHILS % (MANUAL) 85 (42-76)
[2020-06-28 05:32] LABS: BAND % (MANUAL) 3 % (0.0-5.0); LYMPHOCYTES % (MANUAL) 2 % (16-48); MONOCYTES % (MANUAL) 10 % (0-11.0)
[2020-06-28] MEDS: BLOOD SUGAR DIAGNOSTIC 1 EACH STRIP IN SCH ×3 (05:41→18:09)
[2020-06-28] MEDS ORDERED: DEXTROSE 50%-WATER 50 ML DISP.SYRIN IVP ONE (06:30)
[2020-06-28] MEDS ORDERED: SODIUM BICARBONATE SYR 50 MEQ/50 ML DISP.SYRIN IV ONE (06:30)
[2020-06-28] MEDS ORDERED: SODIUM POLYSTYRENE SULFONATE 15 G/60 ML BOTTLE GT ONE (06:30)
[2020-06-28] MEDS ORDERED: INSULIN REGULAR, HUMAN 100 UNIT/ML 3 ML VIAL IV ONE (06:30)
--- NOTE | 2020-06-28 06:41 | NUR ---
CURTAIN CUTTER HAND AM. LABS K-7.9, PHOS-10.4, WBC-41.2 NEW ORDER TO GIVE KAYEXELATE 60 G, INSULIN 1`0 U. IV, D 50- 50 ML, BICARB-50 MEQ... KAYEXALATE IS NOT AVAILABLE. WAITING PHARMACY TO DELIVERY THIS MED, SO ALL NEW ORDER MEDS CAN BE GIVEN TOGETHER.
[2020-06-28] MEDS ORDERED: SODIUM BICARBONATE SYR 50 MEQ/50 ML DISP.SYRIN ONE (07:18)
[2020-06-28] MEDS: MEROPENEM 1 G in IV NS 0.9% 100 ML IV SCH ×2 (08:28→20:32)
[2020-06-28] MEDS: CHOLECALCIFEROL 1,000 UNIT TABLET (VIT D3) PO SCH (08:29)
[2020-06-28] MEDS: ATORVASTATIN 40 MG TABLET GT SCH (08:29)
[2020-06-28] MEDS: MULTIVIT W/MINERALS 1 TAB TABLET GT SCH (08:29)
[2020-06-28] MEDS: ASCORBIC ACID 500 MG TABLET GT SCH (08:29)
[2020-06-28] MEDS: ASPIRIN 81 MG TAB.CHEW GT SCH (08:29)
[2020-06-28] MEDS: PROSOURCE / PROSTAT (PYXIS) 30 ML UDC GT SCH ×2 (08:30→16:34)
[2020-06-28] MEDS: ENOXAPARIN SODIUM 40 MG/0.4 ML DISP.SYRIN SQ SCH ×2 (08:36→21:33)
[2020-06-28 09:21] LABS: ABG OXYGEN SATURATION 93.5 % (92.0-98.5); ABG PCO2 35.4 mmHg (35.0-45.0); ABG PH 7.141 (7.350-7.450); ABG PO2 82.4 mmHg (75.0-100.0); AaDO2 486.9 mmHg; MetHb 0.1 % (0.0-1.5); O2Hb 93.4 % (94.0-97.0); PEEP,BG 12 cm H2O; SITE, ABG Right Radial; VT, ABG 500 mL
[2020-06-28] MEDS: Sodium Bicarbonate 150 MEQ in IV D5W 1,000 ML IV PRN ×2 (09:25→21:30)
[2020-06-28] MEDS ORDERED: PHENYLEPHRINE 50 MG in IV NS 0.9% 245 ML IV PRN (12:30)
[2020-06-28 13:28] LABS: CALCIUM, SERUM 7.1 mg/dL (8.5-10.1); CARBON DIOXIDE 16 mmol/L (21-32); CHLORIDE 106 mmol/L (98-107); CREATININE 1.8 mg/dL (0.6-1.3); GLUCOSE 143 mg/dL (74-106); POTASSIUM 5.6 mmol/L (3.5-5.1); SODIUM SERUM 147 mmol/L (136-145); UREA NITROGEN, BLOOD 72 mg/dL (7-18)
[2020-06-28 13:33] LABS: BILIRUBIN,DIRECT 0.9 mg/dL (0.0-0.2); TOTAL PROTEIN, SERUM 5.6 g/dL (6.4-8.2)
[2020-06-28 15:49] LABS: ALBUMIN 1.2 g/dL (3.4-5.0)
[2020-06-28] MEDS: VASOPRESSIN INJ 40 UNIT in IV NS 0.9% 38 ML IV PRN (16:24)
[2020-06-28] MEDS: MICAFUNGIN SODIUM 100 MG in IV NS 0.9% 100 ML IV SCH (18:10)
[2020-06-28] MEDS ORDERED: SODIUM POLYSTYRENE SULFONATE 15 G/60 ML BOTTLE PO ONE (19:00)
[2020-06-28] MEDS ORDERED: BUMETANIDE INJ 4 MG in IV D5W 24 ML IV ONE (19:00)
[2020-06-28] MEDS ORDERED: SODIUM POLYSTYRENE SULFONATE 15 G/60 ML BOTTLE ONE (21:00)
[2020-06-28] MEDS ORDERED: VANCOMYCIN HCL 0.75 GM in IV D5W 250 ML IV SCH (21:00)
--- NOTE | 2020-06-28 23:00 | NUR ---
MANUFACTURING LEADER NOTES HOSPITALIST ERASTO ENGAGEMENT LEAD ON PHONE WITH PATIENT'S FAMILY MEMBER, CURRENT STATUS OF PATIENT DISCUSSED, PATIENT CRITICALLY ILL, NO BP READINGS DETECTED, NO SPO2 DETECTED, BUT REMAINS MARGARETH PULSE, SINUS TACHYCARDIA ON MONITOR. PER FAMILY MEMBER, KEEP DNR STATUS, AND CONTINUE VASOPRESSOR SUPPORT. ERASTO ENGAGEMENT LEAD IN AGREEMENT WITH PATIENT'S FAMILY WISHES, WILL MONITOR
--- NOTE | 2020-06-28 23:15 | NUR ---
TUBING MILL OPERATOR NOTES NOTIFIED BY ERASTO CHENG, PER PATIENT'S FAMILY, NO THIRD PRESSOR. NEOSYNEPPHRINE DRIP NOT STARTED PER PATIENT'S FAMILY WISHES AND ORDER BY ERASTO CHENG
[2020-06-29] VITALS (8 sets, daily range): BP systolic 0–97; BP diastolic 0–50
[2020-06-29] MEDS: BLOOD SUGAR DIAGNOSTIC 1 EACH STRIP IN SCH ×2 (00:47→05:32)
[2020-06-29] MEDS: NOREPINEPHRINE 32 MG in IV NS 0.9% 218 ML IV PRN ×2 (00:49→08:00)
[2020-06-29] MEDS: HYDROCORTISONE SOD SUCCINATE 100 MG/2 ML VIAL IV SCH (05:00)
--- NOTE | 2020-06-29 05:32 | NUR ---
TECHNICAL ACCOUNT MANAGER NOTES PER ERASTO BARREL BUNG REMOVER AND DUMPER, HOLD SOLUMEDROL AND HOLD ACCUCHEK PER DISCUSSION WITH FAMILY MEMBER. PATIENT CONTINUES ON LEVOPHED DRIP AND VASOPRESSIN DRIP @ MAX RATE.
--- NOTE | 2020-06-29 06:06 | NUR ---
CLINICAL RESEARCH TECHNICIAN NOTES PATIENT SEEN AND EXAMINED BY ERASTO ELIGIBILITY WORKER. PATIENT STILL WITH STRONG CAROTID PULSE, CONTINUES ON LEVOPHED DRIP AND VASOPRESSIN DRIP @ MAXIMUM RATE, NO BP READABLE, NO SPO2 READABLE
--- NOTE | 2020-06-29 07:10 | NUR ---
RN INITIAL NOTES RECEIVED PT INTUBATED, ON VENT. WEAK PALPABLE PULSE NOTED, BP UNABLE TO OBTAIN. PT ON VASO AND LEVO DRIP, MAX OUT. PT DNR STATUS. WILL MONITOR
[2020-06-29] MEDS: Sodium Bicarbonate 150 MEQ in IV D5W 1,000 ML IV PRN (07:59)
[2020-06-29] MEDS: ATORVASTATIN 40 MG TABLET GT SCH (08:17)
[2020-06-29] MEDS: MEROPENEM 1 G in IV NS 0.9% 100 ML IV SCH (08:17)
[2020-06-29] MEDS: MULTIVIT W/MINERALS 1 TAB TABLET GT SCH (08:17)
[2020-06-29] MEDS: PROSOURCE / PROSTAT (PYXIS) 30 ML UDC GT SCH (08:17)
[2020-06-29] MEDS: ASPIRIN 81 MG TAB.CHEW GT SCH (08:17)
[2020-06-29] MEDS: CHOLECALCIFEROL 1,000 UNIT TABLET (VIT D3) PO SCH (08:18)
[2020-06-29] MEDS: ASCORBIC ACID 500 MG TABLET GT SCH (08:18)
[2020-06-29] MEDS ORDERED: VANCOMYCIN 500 MG in IV D5W 100 ML IV SCH (09:00)
--- NOTE | 2020-06-29 09:10 | NUR ---
RN NOTES PT NOTED PULSELESS, BP UNAPPRECIATED. PUPILS FIXED AND DILATED. PRONOUNCED BY 2 RNS. CALLED [facility], CASE # [id number]. CALLED JARRET ZAMARRIPA #[phone]. LEFT A MESSAGE.
--- NOTE | 2020-06-29 09:58 | NUR ---
RN NOTES BODY TAKEN TO [facility]. NO BELONGINGS. 2ND CALL FOR JARRET ZAMARRIPA DONE. LEFT A VOICEMAIL.
--- NOTE | 2020-06-29 11:00 | NUR ---
RN NOTES JARRET ZAMARRIPA (BROTHER) CALLED BACK. NOTIFIED OF PT'S DEMISE. BODY CURRENTLY AT [facility].
== END 2020-06-29 10:08 | disposition expired | DRG 870 ==
LOC: ER 09:14 → TRANSITION 17:11 → ICUOV 19:59 → ICU 06-22 11:21
PROVIDERS: ADMIT Nurse Practitioner Acute Care; ATTEND Nurse Practitioner Acute Care
PROC: 5A1955Z Respiratory Ventilation, Greater than 96 Consecutive Hours (ICD-10-PCS; principal; 2020-06-03)
PROC: 0BH18EZ Insertion of Endotracheal Airway into Trachea, Via Natural or Artificial Opening Endoscopic (ICD-10-PCS; 2020-06-03)
PROC: 06HM33Z Insertion of Infusion Device into Right Femoral Vein, Percutaneous Approach (ICD-10-PCS; 2020-06-03)
PROC: B54BZZA Ultrasonography of Right Lower Extremity Veins, Guidance (ICD-10-PCS; 2020-06-03)
PROC: 05HY33Z Insertion of Infusion Device into Upper Vein, Percutaneous Approach (ICD-10-PCS; 2020-06-04)
PROC: 30233N1 Transfusion of Nonautologous Red Blood Cells into Peripheral Vein, Percutaneous Approach (ICD-10-PCS; 2020-06-21)
DX: A41.89 Other specified sepsis (principal); E11.00 Type 2 diabetes mellitus with hyperosmolarity without nonketotic hyperglycemic-hyperosmolar coma (NKHHC); U07.1 COVID-19; R65.21 Severe sepsis with septic shock; K72.00 Acute and subacute hepatic failure without coma; N17.0 Acute kidney failure with tubular necrosis; J96.01 Acute respiratory failure with hypoxia; I21.4 Non-ST elevation (NSTEMI) myocardial infarction; J12.82 Pneumonia due to coronavirus disease 2019; E43 Unspecified severe protein-calorie malnutrition; G92 Toxic encephalopathy; R53.2 Functional quadriplegia; J15.9 Unspecified bacterial pneumonia; J44.0 Chronic obstructive pulmonary disease with (acute) lower respiratory infection; E87.0 Hyperosmolality and hypernatremia; N39.0 Urinary tract infection, site not specified; Z99.11 Dependence on respirator [ventilator] status; R64 Cachexia; D68.69 Other thrombophilia; J98.11 Atelectasis; E87.2 Acidosis; B37.49 Other urogenital candidiasis; E86.0 Dehydration; F32.9 Major depressive disorder, single episode, unspecified; F09 Unspecified mental disorder due to known physiological condition; T17.990A Other foreign object in respiratory tract, part unspecified in causing asphyxiation, initial encounter; X58.XXXA Exposure to other specified factors, initial encounter; Y93.9 Activity, unspecified; Y92.89 Other specified places as the place of occurrence of the external cause; E86.1 Hypovolemia; E83.42 Hypomagnesemia; E83.39 Other disorders of phosphorus metabolism; E78.5 Hyperlipidemia, unspecified; Z86.73 Personal history of transient ischemic attack (TIA), and cerebral infarction without residual deficits; Z93.1 Gastrostomy status; Z66 Do not resuscitate; R47.02 Dysphasia; R13.10 Dysphagia, unspecified; F03.90 Unspecified dementia, unspecified severity, without behavioral disturbance, psychotic disturbance, mood disturbance, and anxiety; E83.51 Hypocalcemia; E87.6 Hypokalemia; D64.9 Anemia, unspecified; B96.20 Unspecified Escherichia coli [E. coli] as the cause of diseases classified elsewhere; N18.9 Chronic kidney disease, unspecified; M62.50 Muscle wasting and atrophy, not elsewhere classified, unspecified site; E83.9 Disorder of mineral metabolism, unspecified; Z79.4 Long term (current) use of insulin; Z79.82 Long term (current) use of aspirin; I12.9 Hypertensive chronic kidney disease with stage 1 through stage 4 chronic kidney disease, or unspecified chronic kidney disease
CPT/HCPCS: 31720; 36410; 36415; 36600; 71045-TC; 74018; 76700-TC; 76770-TC; 80048-TC; 80053-TC; 80061-TC; 80076-TC; 80202-TC; 81001; 82140-TC; 82247-TC; 82248-TC; 82533; 82550-TC; 82553; 82728-TC; 82803-TC; 82962-TC; 83605-TC; 83615-TC; 83690-TC; 83735-TC; 83880; 84100-TC; 84443-TC; 84478-TC; 84484-TC; 85025-TC; 85027-TC; 85378-TC; 85385-TC; 85730-TC; 86140-TC; 86850-TC; 87040-TC; 87070-TC; 87081-TC; 87086-TC; 87186-TC; 94002-TC; 94003-TC; 94668-TC; 94760-TC; 94762-TC; 94799-TC; 99082-TC; A4216; A4217; A6403; A9563; C1751; G0378; G0500; J1100; J1644; J1650; J1720; J1815; J2185; J2248; J2370; J2543; J2704; J3370; J3475; J3480; J3490; J7030; J7040; J7050; J7060; J7070; P9016-BL; P9047; U0003